=== PATIENT | male | born 1990 | race Caucasian/White ===

== ENCOUNTER 2022-02-12 13:53 | Emergency (ER) | payer OTHER, SELFPAY ==
--- NOTE | ~2022-02-12 | CT_ITS ---
EXAMINATION: CT abdomen pelvis w con DATE: 02/12/2022 16:02 INDICATION: 3 days of epigastric pain, nausea and vomiting TECHNIQUE: Computed tomography (CT) of the abdomen and pelvis was performed with 100 mL Omnipaque-350 intravenous contrast. Automated exposure control and iterative reconstruction technique were employe d. The dose-length product was 408.49 mGy-cm. COMPARISON: None FINDINGS: Lung bases are clear. Heart size is normal. No pericardial or pleural effusion. Liver, gallbladder, s pleen, pancreas, left adrenal gland and bilateral kidneys are normal. 1.9 cm right adrenal nodule wit h relatively low-attenuation accounting for postcontrast imaging suggestive but not diagnostic of sridhar noma. Moderate to large amount of stool scattered throughout the colon. No abnormal bowel wall thicke prudencio or obstruction. Normal appendix. Bladder is normal. No free intraperitoneal gas or fluid. No pat hologically enlarged abdominal or pelvic lymphadenopathy. Bones are unremarkable. IMPRESSION: 1. No acute intra-abdominal/pelvic process. 2. 1.9 cm right adrenal nodule with appearance suggestive but not diagnostic of adenoma. Consider 12 month follow-up adrenal protocol MRI or CT Reviewed, dictated and finalized at location B.
[2022-02-12 14:02] VITALS: BP 149/95; PULSE 61; RESP 14; TEMP 36.4; O2SAT 99
[2022-02-12 14:17] LABS: Basophils Percent Auto 0.9 % (0.2-1.2); Eosinophils Absolute Auto 0.1 K/mm3 (0-0.3); Eosinophils Percent Auto 1.7 % (0-4.4); Hematocrit 47.7 % (42.0-52.0); Hemoglobin 15.8 g/dL (14.0-18.0); Immature Granulocyte Absolute 0.01 K/mm3 (0.00-0.031); Immature Granulocyte Percent A 0.2 % (0-0.5); Lymphocytes Percent Auto 36.5 % (18.3-44.2); Mean Corpuscular HGB Conc 33.1 g/dl (32-36); Mean Corpuscular Hemoglobin 29.6 pg (26-34); Mean Corpuscular Volume 89.3 fl (80-100); Mean Platelet Volume 9.8 fl (7.4-10.4); Monocytes Absolute Auto 0.4 K/mm3 (0.1-0.6); Monocytes Percent Auto 8.6 % (2.6-8.5); Neutrophils Absolute Auto 2.4 K/mm3 (1.3-6.7); Neutrophils Percent Auto 52.1 % (45.5-73.1); Platelet Count Result 196 k/mm3 (150-375); Red Blood Count 5.34 M/mm3 (4.6-6.20); Red Cell Distribution Width 12.1 % (11.5-14.5); White Blood Count 4.7 K/mm3 (4.5-10.0)
[2022-02-12 14:28] LABS: Add Urine Microscopic? YES; Amorphous Sediment Urine Few; Appearance Urine Cloudy (Clear); Bilirubin Urine Negative (Negative); Blood Urine Negative (Negative); Color Urine Yellow (Yellow); Glucose Urine UA Negative (Negative); Ketones Urine Negative (Negative); Leukocyte Esterase Ur Negative LEU/UL (Negative); Mucus Urine Rare /lpf; Nitrate Urine Negative (Negative); Protein Urine Negative (Negative); Specific Grav Ur 1.021 (1.001-1.035); Urobilinogen Urine Negative mg/dL (<2.0)
[2022-02-12 14:31] LABS: Alanine Aminotransferase 22 U/L (6-50); Albumin Level 4.7 g/dL (3.5-5.1); Alkaline Phosphatase 66 U/L (38-126); Anion Gap 8 mmol/L (8-16); Aspartate Amino Transferase 28 U/L (17-59); Blood Urea Nitrogen 20 mg/dL (9-20); Calcium 9.4 mg/dL (8.4-10.2); Carbon Dioxide 29 mmol/L (22-30); Chloride 101 mmol/L (98-107); Estimated CRCL calculation 91 ml/min; Estimated Glomerular Filt Rate > 60; Glucose 103 mg/dL (65-110); Lipase 53 U/L (23-300); Potassium 4.1 mmol/L (3.4-5.0); Sodium 138 mmol/L (137-145)
--- NOTE | 2022-02-12 15:29 | ED.ABDPAIN ---
HPI - Abdominal Pain General Chief Complaint: Abdominal Pain <BASSEM Fairchild Last Filed: 02/12/22 17:15> Stated Complaint: abdominal pain <BASSEM Fairchild Last Filed: 02/12/22 17:15> Time Seen by Provider: 02/12/22 14:19 <BASSEM Fairchild Last Filed: 02/12/22 17:15> Source: patient <BASSEM Fairchild Last Filed: 02/12/22 17:15> Mode of arrival: ambulatory <BASSEM Fairchild Last Filed: 02/12/22 17:15> Limitations: no limitations <BASSEM Fairchild Last Filed: 02/12/22 17:15> History of Present Illness HPI narrative: Patient is a 32-year-old male who presents the ED with report of epigastric abdominal pain. Patient reports having pain in his epigastric region for the last several days. He describes the pain as stabbing, burning, twisting. He has a long history of GERD, but states this feels different. He has not tried anything else for the pain. He did report a few episodes of nausea and vomiting, but denies diarrhea, constipation, rectal bleeding, melena. Denies fever, dysuria, hematuria. Denies chest pain, difficulty breathing. <BASSEM Fairchild Last Filed: 02/12/22 17:15> Related Data Allergies/Adverse Reactions: Allergies Allergy/AdvReac Type Severity Reaction Status Date / Time NKDA, NO LATEX Allergy Mild Unknown Uncoded 02/12/22 14:18 <BASSEM Fairchild Last Filed: 02/12/22 17:15> Review of Systems Review of Systems: CONSTITUTIONAL: Denies fever, chills, or sweats. CARDIOVASCULAR: Denies chest pain. RESPIRATORY: Denies dyspnea. GASTROINTESTINAL: Reports epigastric abdominal pain, nausea, vomiting. Denies constipation, rectal bleeding, melena, diarrhea. GENITOURINARY: Denies dysuria or hematuria. <BASSEM Fairchild Last Filed: 02/12/22 17:15> All systems reviewed & are unremarkable except as noted in HPI and below <Kaela Angulo PA-C - Last Filed: 02/12/22 17:15> PMFSH Past Medical History Medical History: Medical History (Updated 02/12/22 @ 17:15 by Kaela Angulo PA-C) GERD (gastroesophageal reflux disease) <Kaela Angulo PA-C - Last Filed: 02/12/22 17:15> Surgical History Surgical History: Surgical History (Updated 02/12/22 @ 15:44 by Kaela Angulo PA-C) No pertinent past surgical history <Kaela Angulo PA-C - Last Filed: 02/12/22 17:15> Social History Social History: Social History (Updated 02/12/22 @ 15:44 by Kaela Angulo PA-C) Smoking status: Never smoker <Kaela Angulo PA-C - Last Filed: 02/12/22 17:15> Exam Narrative: GENERAL: Well appearing, well-nourished, non-toxic, in no acute distress. HEAD: Normocephalic, atraumatic. NECK: Supple. No adenopathy, no masses. RESPIRATORY: Airway patent, respirations nonlabored. Clear to auscultation bilaterally, no rales, rhonchi, wheezing. CARDIOVASCULAR: Regular rate and rhythm without murmurs, rubs, or gallops. Peripheral pulses 2+ and equal bilaterally. ABDOMINAL: Soft, tenderness to palpation in epigastric region, right upper quadrant, nondistended, no hepatosplenomegaly. Normoactive BS. MUSCULOSKELETAL: Moves all extremities. Strength/ROM intact without gross deformities. SKIN: Warm, dry, normal color. No rashes. NEURO: A&O X3. Speech clear. Cranial nerves II-XII grossly intact. Steady gait. No ataxic movements. PSYCHIATRIC: Appropriate mood and affect. Normal interaction. <Kaela Angulo PA-C - Last Filed: 02/12/22 17:15> Course MONITORING MANAGER/PA Physician Supervision For this patient encounter, I reviewed the MONITORING MANAGER or PA documentation, treatment plan, and medical decision making <Priyank Perkins MD - Last Filed: 02/12/22 18:37> Vital Signs Vital signs: Vital Signs Temperature 97.6 F 02/12/22 14:02 Pulse Rate 61 02/12/22 14:02 Respiratory Rate 14 02/12/22 14:02 Blood Pressure 149/95 H 02/12/22 14:
[2022-02-12] MEDS: BELLADONNA ALK/PHENOB ELIX 10 ML, MAG HYDROX/ALUMINUM HYD/SIMETH 30 ML, LIDOCAINE HCL 2... PO (15:34)
[2022-02-12] MEDS: PANTOPRAZOLE SODIUM IV 40 MG VIAL IV PUSH (17:10)
== END 2022-02-12 17:18 | disposition home or self-care (01) ==
PROVIDERS: Emergency Provider Emergency Medicine; PCP Family Medicine
DX: R10.13 Epigastric pain (principal); E27.9 Disorder of adrenal gland, unspecified; K21.9 Gastro-esophageal reflux disease without esophagitis
CPT/HCPCS: 36415; 74177; 80053; 81001; 83690; 85025; 96365; 96375; 99284; A9270; C9113; J0131; Q9967

== ENCOUNTER 2022-07-28 20:47 | Emergency (ER) | payer OTHER, SELFPAY ==
--- NOTE | ~2022-07-28 | XR_ITS ---
EXAMINATION: XR knee LT 3V DATE: 07/28/2022 21:13 INDICATION: Left knee pain TECHNIQUE: Four views of the left knee were obtained. COMPARISON: None. FINDINGS: Alignment is normal. No fracture or osteochondral lesion. There is mild tricompartmental os teoarthritis characterized by tiny marginal osteophytes. No joint effusion/synovitis. Soft tissues a re unremarkable. IMPRESSION: 1. No acute osseous abnormality. Reviewed, dictated and finalized at location F.
[2022-07-28 20:56] VITALS: BP 162/91; PULSE 92; RESP 14; TEMP 36.6; O2SAT 98
[2022-07-28] MEDS: HYDROcodone/acetaminophen (*CRX) 5-325 MG TABLET 1 TAB PO (22:35)
--- NOTE | 2022-07-28 22:38 | ED.LOWEXIN ---
HPI - Extremity Injury (Lower) General Chief Complaint: Extremity Injury, Lower Stated Complaint: left knee pain Time Seen by Provider: 07/28/22 22:25 History of Present Illness HPI Narrative: Patient is a 32-year-old male here for evaluation of left knee pain over the past 3 hours. Patient states that he was doing jujitsu when he had a twisting injury to his knee and he felt a pop in his left knee. He denies any other injury in the accident. Has not attempted any pain medicine yet. No numbness or tingling in the leg. Related Data Allergies Allergy/AdvReac Type Severity Reaction Status Date / Time No Known Allergies Allergy Verified 07/28/22 21:54 Review of Systems Review of Systems: Gen.: Denies fevers or chills Eyes: Denies eye pain or visual change ENT: Denies congestion Respiratory: Denies shortness of breath or cough CV: Denies chest pain or palpitations GI: Denies abdominal pain nausea, emesis or diarrhea denies burning, urgency, frequency or hematuria Musculoskeletal: Reports left knee pain Neuro: Denies numbness, tingling, weakness or focal weakness Skin: Denies rash Except as documented, all other systems reviewed and negative PMFSH Past Medical History Medical History GERD (gastroesophageal reflux disease) Surgical History Surgical History No pertinent past surgical history Social History Social History (Updated 02/12/22 @ 15:44 by Kaela Angulo PA-C) Smoking status: Never smoker Exam Narrative: APPEARANCE: Well appearing, no pain in distress, well-nourished. Head: Normocephalic and atraumatic. EYES: PERRLA/EOMI, conjunctivae clear NOSE: No nasal drainage EARS: External ear normal in appearance THROAT: Oropharynx is clear. Mucous membranes are moist. NECK: Supple. No adenopathy, no masses. RESPIRATORY: Airway patent, respirations nonlabored. Clear to auscultation bilaterally, no rales, rhonchi, wheezing. CARDIOVASCULAR: Regular rate and rhythm without murmurs, rubs, or gallops. ABDOMINAL: Normoactive bowel sounds. Soft, nontender, nondistended. No rebound tenderness or guarding. MUSCULOSKELETAL: Positive posterior drawer test. No bony tenderness to palpation to the patella. Extremities are warm and well-perfused. Moves all extremities well. No edema. NEURO: Normal speech. No focal neurologic deficits. SKIN: Skin is warm and dry. No rashes. PSYCHIATRIC: Normal affect/mood. Course Vital Signs Vital signs: Vital Signs Temperature 97.9 F 07/28/22 20:56 Pulse Rate 92 07/28/22 20:56 Respiratory Rate 14 07/28/22 20:56 Blood Pressure 162/91 H 07/28/22 20:56 Pulse Oximetry 98 07/28/22 20:56 Oxygen Delivery Room Air 07/28/22 20:56 Temperature 97.9 F 07/28/22 20:56 Pulse Rate 92 07/28/22 20:56 Respiratory Rate 14 07/28/22 20:56 Blood Pressure 162/91 H 07/28/22 20:56 Pulse Oximetry 98 07/28/22 20:56 Oxygen Delivery Room Air 07/28/22 20:56 MDM - Extremity Injury (Lower) MDM Narrative Medical decision making narrative: 32-year-old male here for evaluation of knee pain after a twisting injury during , felt a pop in his knee. Plain films are negative for acute fractures but he does have a positive posterior drawer test. Mechanism and exam suspicious for ligament tear. He is NVID. He was placed in a knee immobilizer and provided with orthopedic follow-up. Return precautions were discussed and he voiced understanding Discharge Plan Discharge Clinical Impression: Sprain of left knee Patient Disposition: Home, Self-Care Condition: Stable Instructions: Antibiotic Form, Knee Sprain (ED), Knee Immobilizer (ED) Additional Instructions: The mechanism of your injury is suspicious for ligament sprain such as your ACL or meniscus. You are placed in a knee immobilizer today, please use the crutches and follow-u
== END 2022-07-28 23:30 | disposition home or self-care (01) ==
LOC: ANHED 22:39
PROVIDERS: Emergency Provider Physician Assistant; PCP Family Medicine
DX: S83.92XA Sprain of unspecified site of left knee, initial encounter (principal); K21.9 Gastro-esophageal reflux disease without esophagitis; X50.9XXA Other and unspecified overexertion or strenuous movements or postures, initial encounter; Y93.75 Activity, martial arts
CPT/HCPCS: 73562; 99283; A9270

== ENCOUNTER 2022-08-05 06:52 | Outpatient (CLI) | payer OTHER, SELFPAY ==
--- NOTE | 2022-08-05 | ECG_ITS ---
Measurements Intervals [place] Rate: 50 P: 52 RI: 178 QRS: 43 QRSD: 103 T: 14 QT: 439 QTc: 403 Interpretive Statements SINUS BRADYCARDIA OTHERWISE NORMAL ECG NO PREVIOUS ECG AVAILABLE FOR COMPARISON Electronically Signed On 08-05-2022 13:48:38 CDT by Dann Obando M.D.
[2022-08-05 07:50] LABS: Basophils Percent Auto 0.5 % (0.2-1.2); Eosinophils Absolute Auto 0.1 K/mm3 (0-0.3); Eosinophils Percent Auto 1.7 % (0-4.4); Hematocrit 47.9 % (42.0-52.0); Hemoglobin 15.8 g/dL (14.0-18.0); Immature Granulocyte Absolute 0.02 K/mm3 (0.00-0.031); Immature Granulocyte Percent A 0.2 % (0-0.5); Lymphocytes Absolute Auto 3.11 K/mm3 (0.9-3.2); Lymphocytes Percent Auto 36.9 % (18.3-44.2); Mean Corpuscular Hemoglobin 29.6 pg (26-34); Mean Corpuscular Volume 89.7 fl (80-100); Mean Platelet Volume 10.3 fl (7.4-10.4); Monocytes Absolute Auto 0.7 K/mm3 (0.1-0.6); Monocytes Percent Auto 8.8 % (2.6-8.5); Neutrophils Absolute Auto 4.4 K/mm3 (1.3-6.7); Neutrophils Percent Auto 51.9 % (45.5-73.1); Platelet Count Result 216 k/mm3 (150-375); Red Blood Count 5.34 M/mm3 (4.6-6.20); Red Cell Distribution Width 12.4 % (11.5-14.5); White Blood Count 8.4 K/mm3 (4.5-10.0)
[2022-08-05 08:00] LABS: Appearance Urine Clear (Clear); Bilirubin Urine Negative (Negative); Blood Urine Negative (Negative); Color Urine Yellow (Yellow); Glucose Urine UA Negative (Negative); Ketones Urine Negative (Negative); Leukocyte Esterase Ur Negative LEU/UL (Negative); Nitrate Urine Negative (Negative); Protein Urine Negative (Negative); Specific Grav Ur 1.027 (1.001-1.035); pH Urine 5.5 (5.0-9.0)
[2022-08-05 08:25] LABS: Alanine Aminotransferase 21 U/L (6-50); Albumin Level 4.5 g/dL (3.5-5.1); Alkaline Phosphatase 64 U/L (38-126); Anion Gap 7 mmol/L (8-16); Aspartate Amino Transferase 29 U/L (17-59); Bilirubin,Total 0.9 mg/dL (0.2-1.3); Blood Urea Nitrogen 22 mg/dL (9-20); Calcium 9.2 mg/dL (8.4-10.2); Carbon Dioxide 29 mmol/L (22-30); Chloride 103 mmol/L (98-107); Cholesterol 151 mg/dL (0-200); Estimated Glomerular Filt Rate > 60; Glucose 103 mg/dL (65-110); HDL Direct 48 mg/dL; Potassium 3.8 mmol/L (3.4-5.0); Sodium 139 mmol/L (137-145); Triglycerides 94 mg/dL (<150)
[2022-08-05 08:31] LABS: LDL Cholesterol Direct 89 mg/dL
[2022-08-05 08:33] LABS: Free T4 Free Thyroxine 1.56 ng/mL (0.78-2.19)
[2022-08-05 09:28] LABS: Folic Acid 5.8 ng/mL (2.76->20)
[2022-08-05 09:28] LABS: Add Urine Microscopic? NO
== END 2022-08-05 06:53 | disposition home or self-care (01) ==
LOC: ANHLAB 06:54
PROVIDERS: PCP Family Medicine Sports Medicine; Visit Provider Family Medicine Sports Medicine
DX: K52.9 Noninfective gastroenteritis and colitis, unspecified (principal); K21.9 Gastro-esophageal reflux disease without esophagitis; I10 Essential (primary) hypertension; Z82.49 Family history of ischemic heart disease and other diseases of the circulatory system
CPT/HCPCS: 36415; 80053; 80061; 81003; 82607; 82746; 84439; 84443; 85025; 93005

== ENCOUNTER 2024-03-28 04:10 | Emergency (ER) | payer OTHER, SELFPAY ==
[2024-03-28] VITALS (17 sets, daily range): BP systolic 128–157; BP diastolic 78–107; PULSE 79–106; RESP 10–21; TEMP 36.5; O2SAT 97–100
--- NOTE | 2024-03-28 04:19 | ECG_ITS ---
Test Date: 2024-03-28 04:40:31 Measurements Intervals [place] Rate: 77 P: 51 MS: 165 QRS: 57 QRSD: 101 T: 50 QT: 377 QTc: 427 Interpretive Statements SINUS RHYTHM WITH SINUS ARRHYTHMIA MINIMAL Q WAVES- INFERIOR LEADS NONSPECIFIC T-WAVE ABNORMALITY- ANTERIOR LEADS BASELINE ARTIFACT- I, II, III, AVR, AVL, V1 BORDERLINE ECG No previous ECG available for comparison Electronically Signed On 03-28-2024 06:14:24 [employer] PREPAR[employer] SUPERVISOR by Kulwant Mclain D.O.
[2024-03-28 04:55] LABS: Basophils Absolute Auto 0.1 K/mm3 (0.0-0.1); Basophils Percent Auto 0.8 % (0.2-1.2); Eosinophils Absolute Auto 0.2 K/mm3 (0-0.3); Eosinophils Percent Auto 2.1 % (0-4.4); Hematocrit 46.3 % (42.0-52.0); Hemoglobin 15.6 g/dL (14.0-18.0); Immature Granulocyte Absolute 0.03 K/mm3 (0.00-0.031); Immature Granulocyte Percent A 0.3 % (0-0.5); Lymphocytes Absolute Auto 3.94 K/mm3 (0.9-3.2); Lymphocytes Percent Auto 43.2 % (18.3-44.2); Mean Corpuscular HGB Conc 33.7 g/dl (32-36); Mean Corpuscular Volume 86.1 fl (80-100); Mean Platelet Volume 10.3 fl (7.4-10.4); Monocytes Absolute Auto 0.8 K/mm3 (0.1-0.6); Monocytes Percent Auto 8.9 % (2.6-8.5); Neutrophils Absolute Auto 4.1 K/mm3 (1.3-6.7); Neutrophils Percent Auto 44.7 % (45.5-73.1); Platelet Count Result 242 k/mm3 (150-375); Red Blood Count 5.38 M/mm3 (4.6-6.20); Red Cell Distribution Width 12.3 % (11.5-14.5); White Blood Count 9.1 K/mm3 (4.5-10.0)
[2024-03-28 05:13] LABS: Alanine Aminotransferase 28 U/L (6-50); Albumin Level 4.4 g/dL (3.5-5.1); Alkaline Phosphatase 74 U/L (38-126); Anion Gap 10 mmol/L (4-12); Aspartate Amino Transferase 31 U/L (17-59); Bilirubin,Total 0.6 mg/dL (0.2-1.3); Blood Urea Nitrogen 23 mg/dL (9-20); Calcium 8.9 mg/dL (8.4-10.2); Carbon Dioxide 26 mmol/L (22-30); Chloride 102 mmol/L (98-107); Estimated CRCL calculation 90 ml/min; Estimated Glomerular Filt Rate > 60; Glucose 168 mg/dL (65-110); Potassium 3.3 mmol/L (3.4-5.0); Sodium 138 mmol/L (137-145)
--- NOTE | 2024-03-28 05:25 | ED_ITS ---
HPI - General Adult General Chief complaint: Recheck/Abnormal Lab/Rx Stated complaint: high blood pressure Time Seen by Provider: 03/28/24 04:17 History of Present Illness HPI narrative: Patient is a 34-year-old male who presents to the emergency department this evening due to concern for lightheadedness and elevated blood pressure. Patient also states that he does have intermittent episodes where he would feel his heart recent and could feel palpitations. Patient states that he has been having these symptoms on and off for a while now which prompted him to get fitted for a Holter monitor. Patient states that he has been wearing this Holter monitor for 2-3 days. Currently denying any chest pain or shortness of breath. Patient admits that he does have history of anxiety which could be contributing to his symptoms. Patient was also concerned that his blood pressure has been elevated. Patient states that when he felt lightheaded and dizzy earlier today he had someone check his blood pressure and he noted that his systolic blood pressure was 200 which is what prompted him to come to the emergency department for further evaluation. Patient admits that he does take blood pressure medication and recently had his dose increased approximately 2 months ago. Patient denies any additional symptoms or concerns at this time. Related Data Allergies Allergy/AdvReac Type Severity Reaction Status Date / Time No Known Allergies Allergy Verified 03/28/24 04:34 Review of Systems Review of Systems: All systems are reviewed and are negative unless stated otherwise in the HPI. [facility] Past Medical History Medical History GERD (gastroesophageal reflux disease) Surgical History Surgical History No pertinent past surgical history Social History Social History Smoking status: Never smoker Exam Narrative: General: Alert, awake, afebrile, in no acute distress. HEENT: PERRL, no rhinorrhea, no post nasal drip, oropharynx clear. Neck: Trachea midline, no JVD, no lymphadenopathy. Cardiovascular: Regular rate and rhythm, no murmurs, rubs or gallops, no peripheral edema. Respiratory: Clear to auscultation bilaterally, no tachypnea, no wheezing, no rhonchi, no rubs, no respiratory distress. Abdomen: Soft, nontender, nondistended, no rebound, no guarding, no peritoneal signs. Musculoskeletal: No joint swelling or deformity, normal muscle tone. Skin: No rashes or petechia, no signs of infection. Psychiatric: Alert and oriented, normal behavior and judgment for situation. Neurological: Alert and oriented to person, place, and time. Follows all commands. No focal deficits, speech is clear and fluent. Course Vital Signs Vital signs: Vital Signs Temperature 97.7 F 03/28/24 03:44 Pulse Rate 106 H 03/28/24 03:44 Respiratory Rate 14 03/28/24 03:44 Blood Pressure 157/107 H 03/28/24 03:44 Pulse Oximetry 100 03/28/24 03:44 Oxygen Delivery Room Air 03/28/24 03:44 Temperature 97.7 F 03/28/24 03:44 Pulse Rate 98 03/28/24 05:47 Respiratory Rate 15 03/28/24 05:47 Blood Pressure 138/92 H 03/28/24 05:47 Pulse Oximetry 100 03/28/24 05:47 Oxygen Delivery Room Air 03/28/24 03:44 Medical Decision Making MDM Narrative Medical decision making narrative: The patient was evaluated by myself in the emergency department. History is obtained from patient who is an independent historian and physical exam was performed. External medical records were reviewed at this time. IV was established and pertinent tests were ordered. EKG was obtained which revealed sinus rhythm rate of 77 beats per minute. No ST changes, T wave inversions or evidence of acute ischemia. EKG was independently interpreted by me and is currently pending official cardiology read. Laboratory results obtained revealing mild hypokalemia with a potassium of 3.3 otherwise unremarkable. Patient was administered 40 mEq of oral potassium at this time. Magnesium noted to be normal. Differential diagnosis considerations include electrolyte derangements, acute viral syndrome, dehydration, arrhythmia, anxiety. Comorbidities impacting this visit include history of hypertension and anxiety. I have evaluated and discussed social determinants of health with the patient that could potentially impact subsequent diagnosis and treatment plans. On repeat assessment of the patient, reevaluation revealed that the patient is doing well and is in no acute distress. Patient symptoms have improved since he arrived to our emergency department. Repeat vital signs were all reviewed and noted to be stable. Patient's blood pressure has been stable in the emergency department current blood pressure 132/91 mmHg. Differential diagnosis and treatment plan were discussed with the patient at bedside. Patient agrees with discussion and after shared medical decision making agrees with discharge. All questions were answered to the patient's satisfaction. Patient will follow up with his PCP in 3-5 days. Patient was provided with strict return precautions and instructed to return to the emergency department if any new or worsening symptoms develop. The patient was discharged in stable condition. Vital Signs Vital Signs: Vital Signs Temperature 97.7 F 03/28/24 03:44 Pulse Rate 106 H 03/28/24 03:44 Respiratory Rate 14 03/28/24 03:44 Blood Pressure 157/107 H 03/28/24 03:44 Pulse Oximetry 100 03/28/24 03:44 Oxygen Delivery Room Air 03/28/24 03:44 Temperature 97.7 F 03/28/24 03:44 Pulse Rate 98 03/28/24 05:47 Respiratory Rate 15 03/28/24 05:47 Blood Pressure 138/92 H 03/28/24 05:47 Pulse Oximetry 100 03/28/24 05:47 Oxygen Delivery Room Air 03/28/24 03:44 Lab Data 03/28/24 04:42 03/28/24 04:42 Labs: Lab Results 03/28/24 Range/Units 04:42 WBC 9.1 (4.5-10.0) K/mm3 RBC 5.38 (4.6-6.20) M/mm3 Hgb 15.6 (14.0-18.0) g/dL Hct 46.3 (42.0-52.0) % MCV 86.1 (80-100) fl MCH 29.0 (26-34) pg MCHC 33.7 (32-36) g/dl RDW 12.3 (11.5-14.5) % Plt Count 242 (150-375) k/mm3 MPV 10.3 (7.4-10.4) fl Immature Gran % (Auto) 0.3 (0-0.5) % Neut % (Auto) 44.7 L (45.5-73.1) % Lymph % (Auto) 43.2 (18.3-44.2) % [place] % (Auto) 8.9 H (2.6-8.5) % Eos % (Auto) 2.1 (0-4.4) % Baso % (Auto) 0.8 (0.2-1.2) % Lymph # (Auto) 3.94 H (0.9-3.2) K/mm3 [place] # (Auto) 0.8 H (0.1-0.6) K/mm3 Eos # (Auto) 0.2 (0-0.3) K/mm3 Baso # (Auto) 0.1 (0.0-0.1) K/mm3 Abs Immat Gran (auto) 0.03 (0.00-0.031) K/mm3 Absolute Neuts (auto) 4.1 (1.3-6.7) K/mm3 Absolute Nucleated RBC 0.000 (0.0-0.012) K/mm3 Nucleated RBC % 0.0 (0.0-0.2) % Sodium 138 (137-145) mmol/L Potassium 3.3 L (3.4-5.0) mmol/L Chloride 102 (98-107) mmol/L Carbon Dioxide 26 (22-30) mmol/L Anion Gap 10 (4-12) mmol/L BUN 23 H (9-20) mg/dL Creatinine 1.10 (0.7-1.3) mg/dL Estim Creat Clear Calc 90 ml/min Estimated GFR > 60 (59 - ) Glucose 168 H (65-110) mg/dL Calcium 8.9 (8.4-10.2) mg/dL Magnesium 2.0 (1.6-2.3) mg/dL Total Bilirubin 0.6 (0.2-1.3) mg/dL AST 31 (17-59) U/L ALT 28 (6-50) U/L Alkaline Phosphatase 74 (38-126) U/L Total Protein 7.0 (6.3-8.2) g/dL Albumin 4.4 (3.5-5.1) g/dL Discharge Plan Discharge Clinical Impression: Palpitations, Hypokalemia Patient Disposition: Home, Self-Care Condition: Improved Instructions: Antibiotic Form, Hypokalemia (ED) Additional Instructions: Please follow-up with your primary care physician within the next 3-5 days. Return to the emergency department if any new or worsening symptoms develop. Prescriptions: No Action omeprazole 20 mg capsule,delayed release(DR/EC) 20 mg PO DAILY Qty: 30 0RF Follow-up/Referrals: Sean,Alverto Jain MD [Primary Care Provider] - 3 Days Time of Disposition: 05:26
[2024-03-28] MEDS: POTASSIUM CHLORIDE 20 MEQ ER TABLET 40 MEQ PO (05:28)
== END 2024-03-28 05:50 | disposition home or self-care (01) ==
PROVIDERS: Emergency Provider Emergency Medicine; PCP Family Medicine Sports Medicine
DX: R00.2 Palpitations (principal); E87.6 Hypokalemia; K21.9 Gastro-esophageal reflux disease without esophagitis; R94.31 Abnormal electrocardiogram [ECG] [EKG]
CPT/HCPCS: 36415; 80053; 83735; 85025; 93005; 99283; A9270

== ENCOUNTER 2024-06-06 13:39 | Outpatient (CLI) | payer OTHER, SELFPAY ==
--- NOTE | ~2024-06-06 | US_ITS ---
Limited Abdominal Sonogram: Real-time sonographic imaging of the right upper quadrant was performed. Clinical History: Abdominal pain Findings: The liver appears normal with no evidence of mass lesion or bile duct dilatation. Main por [place] vein demonstrates normal direction of flow. The gallbladder is well distended, and appears normal with no evidence of gallstone or wall thickening. The common bile duct measures 4 mm. The visualize d pancreas, aorta, and IVC are unremarkable. Impression: No significant abnormality seen. Reviewed, dictated and finalized at location . HOLDER Impression: No significant abnormality seen.
== END 2024-06-06 13:40 | disposition home or self-care (01) ==
LOC: GOSHIMG 13:39
PROVIDERS: PCP Nurse Practitioner; Visit Provider Nurse Practitioner
DX: R10.11 Right upper quadrant pain (principal)
CPT/HCPCS: 76705

== ENCOUNTER 2024-08-29 12:59 | Emergency (ER) | payer OTHER, SELFPAY ==
--- NOTE | ~2024-08-29 | CT_ITS ---
CT brain wo con Ordering provider: Linnette Cornelius History: 34 years Male with . hypertension, headache . Comparison: None. Technique: CT of the head without contrast. Radiation reduction technique utilized.The dose-length pr oduct was 605.33 mGy-cm. FINDINGS: BRAIN PARENCHYMA AND CSF SPACES: No midline shift, mass effect or hemorrhage. The brain parenchyma a nd CSF spaces are otherwise normal. VISUALIZED PARANASAL SINUSES: Well aerated. MASTOIDS: Well aerated. BONES: The bones appear intact. SOFT TISSUES: Visualized nasopharynx is normal. Superficial soft tissues are normal. IMPRESSION: No acute intracranial findings. Reviewed, dictated and finalized at location A.
[2024-08-29 13:41] VITALS: BP 144/100; PULSE 68; RESP 24; TEMP 36.3; O2SAT 100
--- NOTE | 2024-08-29 13:53 | ECG_ITS ---
Test Date: 2024-08-29 14:25:53 Measurements Intervals [place] Rate: 60 P: 42 [place]: 187 QRS: 42 QRSD: 97 T: 42 QT: 414 QTc: 417 Interpretive Statements SINUS RHYTHM NORMAL ECG Compared to ECG 03/28/2024 04:40:31 NO SIGNIFICANT CHANGE Electronically Signed On 08-29-2024 14:38:32 CDT by Kulwant Mclain D.O.
--- NOTE | 2024-08-29 13:54 | ED_ITS ---
HPI - General Adult General Chief complaint: Arrhythmia/Palpitations <Linnette Cornelius PA-C - Last Filed: 08/29/24 19:16> Stated complaint: Feels like BP too high <Linnette Cornelius PA-C - Last Filed: 08/29/24 19:16> Time Seen by Provider: 08/29/24 13:54 <Linnette Cornelius PA-C - Last Filed: 08/29/24 19:16> Focused HPI: This is a 34 year old male that presents to the ER for elevated blood pressure. Reports his blood pressure was in the 170s systolic the other day. Reports associated headache, feelings of his heart racing. He has been taking his blood pressure medication as prescribed. GENERAL: Anxious, in no acute distress. HEAD: Normocephalic, atraumatic. CHEST: Clear to auscultation. ?No respiratory distress. HEART: Regular rate and rhythm.? NEURO: ?Alert and oriented x3. Patient screened in triage and initial orders placed.? ?Additional care and disposition to be based upon?diagnostic testing and treatment. <Linnette Cornelius PA-C - Last Filed: 08/29/24 19:16> History of Present Illness HPI narrative: Agree with HPI. Patient has lot of anxiety about health due to family history of early cardiac . He did take his home meds 30 minutes after symptom onset today and then began to feel better. He reports that in his mind he tells himself that he knows he is okay but cannot stop thinking about it. He is not getting treatment for generalized anxiety disorder. No stimulant use. No chest pain feels well at this time. <Darwin Bazan MD - Last Filed: 08/29/24 16:41> Related Data Home medications: Home Medications ?Medication ?Instructions ?Recorded ?Confirmed ?Last Taken ?Type losartan 50 mg tablet 50 mg PO DAILY 08/29/24 08/29/24 08/29/24 History nadolol 20 mg tablet 20 mg PO DAILY 08/29/24 08/29/24 08/29/24 History <Linnette Cornelius PA-C - Last Filed: 08/29/24 19:16> Allergies/adverse reactions: Allergies Allergy/AdvReac Type Severity Reaction Status Date / Time No Known Allergies Allergy Verified 08/29/24 13:00 <Linnette Cornelius PA-C - Last Filed: 08/29/24 19:16> Review of Systems 2 Review of Systems: All systems reviewed & are unremarkable except as noted in HPI and below <Darwin Bazan MD - Last Filed: 08/29/24 16:41> Constitutional: Constitutional: Reports no additional constitutional complaints <Darwin Bazan MD - Last Filed: 08/29/24 16:41> ENT: Reports system reviewed and no additional complaints, except as documented <Darwin Bazan MD - Last Filed: 08/29/24 16:41> Cardiovascular: Cardiovascular: Reports no additional cardiovascular complaints <Darwin Bazan MD - Last Filed: 08/29/24 16:41> Respiratory: Respiratory: Reports no additional respiratory complaints < Darwin Bazan MD - Last Filed: 08/29/24 16:41> PMFSH Past Medical History Medical History: Medical History GERD (gastroesophageal reflux disease) <Linnette Cornelius PA-C - Last Filed: 08/29/24 19:16> Surgical History Surgical History: Surgical History No pertinent past surgical history <Linnette Cornelius PA-C - Last Filed: 08/29/24 19:16> Social History Social History: Social History Smoking status: Never smoker <Linnette Cornelius PA-C - Last Filed: 08/29/24 19:16> Exam 2 Narrative: GENERAL: Well-appearing, well-nourished, and in no acute distress. HEAD: Normocephalic, atraumatic. ENT: Mucous membranes moist. CHEST: Clear to auscultation. No respiratory distress. HEART: Regular rate and rhythm. Normal peripheral pulses. ABDOMEN: Soft, nontender, nondistended. EXTREMITIES: Normal range of motion. No edema. SKIN: Warm, dry, no rash. NEURO: Alert and oriented x3. PSYCH: Normal mood and affect. <Darwin Bazan MD - Last Filed: 08/29/24 16:41> Course Course Emergency Course: Patient resting comfortably. Vital signs within acceptable range. Recommend follow-up with PCP. Suspect he has untreated anxiety that needs additional treatment and we discussed this. <Darwin Bazan MD - Last Filed: 08/29/24 16:41> Vital Signs Vital signs: Vital Signs Temperature 97.4 F L 08/29/24 13:41 Pulse Rate 68 08/29/24 13:41 Respiratory Rate 24 H 08/29/24 13:41 Blood Pressure 144/100 H 08/29/24 13:41 Pulse Oximetry 100 08/29/24 13:41 Oxygen Delivery Room Air 08/29/24 13:41 Temperature 97.7 F 08/29/24 16:52 Pulse Rate 59 L 08/29/24 16:52 Respiratory Rate 12 08/29/24 16:52 Blood Pressure 120/86 08/29/24 16:52 Pulse Oximetry 98 08/29/24 16:52 Oxygen Delivery Room Air 08/29/24 13:41 <Linnette Cornelius PA-C - Last Filed: 08/29/24 19:16> Vital Signs Temperature 97.4 F L 08/29/24 13:41 Pulse Rate 68 08/29/24 13:41 Respiratory Rate 24 H 08/29/24 13:41 Blood Pressure 144/100 H 08/29/24 13:41 Pulse Oximetry 100 08/29/24 13:41 Oxygen Delivery Room Air 08/29/24 13:41 Temperature 97.7 F 08/29/24 16:52 Pulse Rate 59 L 08/29/24 16:52 Respiratory Rate 12 08/29/24 16:52 Blood Pressure 120/86 08/29/24 16:52 Pulse Oximetry 98 08/29/24 16:52 Oxygen Delivery Room Air 08/29/24 13:41 <Darwin Bazan MD - Last Filed: 08/29/24 16:41> Medical Decision Making Vital Signs Vital Signs: Vital Signs Temperature 97.4 F L 08/29/24 13:41 Pulse Rate 68 08/29/24 13:41 Respiratory Rate 24 H 08/29/24 13:41 Blood Pressure 144/100 H 08/29/24 13:41 Pulse Oximetry 100 08/29/24 13:41 Oxygen Delivery Room Air 08/29/24 13:41 Temperature 97.7 F 08/29/24 16:52 Pulse Rate 59 L 08/29/24 16:52 Respiratory Rate 12 08/29/24 16:52 Blood Pressure 120/86 08/29/24 16:52 Pulse Oximetry 98 08/29/24 16:52 Oxygen Delivery Room Air 08/29/24 13:41 <Linnette Cornelius PA-C - Last Filed: 08/29/24 19:16> Vital Signs Temperature 97.4 F L 08/29/24 13:41 Pulse Rate 68 08/29/24 13:41 Respiratory Rate 24 H 08/29/24 13:41 Blood Pressure 144/100 H 08/29/24 13:41 Pulse Oximetry 100 08/29/24 13:41 Oxygen Delivery Room Air 08/29/24 13:41 Temperature 97.7 F 08/29/24 16:52 Pulse Rate 59 L 08/29/24 16:52 Respiratory Rate 12 08/29/24 16:52 Blood Pressure 120/86 08/29/24 16:52 Pulse Oximetry 98 08/29/24 16:52 Oxygen Delivery Room Air 08/29/24 13:41 <Darwin Bazan MD - Last Filed: 08/29/24 16:41> Lab Data Result diagrams: 08/29/24 14:26 08/29/24 14:26 <Linnette Cornelius PA-C - Last Filed: 08/29/24 19:16> Labs: Lab Results 08/29/24 Range/Units 14:26 WBC 6.8 (4.5-10.0) K/mm3 RBC 5.60 (4.6-6.20) M/mm3 Hgb 16.0 (14.0-18.0) g/dL Hct 48.7 (42.0-52.0) % MCV 87.0 (80-100) fl MCH 28.6 (26-34) pg MCHC 32.9 (32-36) g/dl RDW 12.0 (11.5-14.5) % Plt Count 220 (150-375) k/mm3 MPV 9.9 (7.4-10.4) fl Immature Gran % (Auto) 0.3 (0-0.5) % Neut % (Auto) 70.2 (45.5-73.1) % Lymph % (Auto) 20.4 (18.3-44.2) % [place] % (Auto) 7.5 (2.6-8.5) % Eos % (Auto) 1.0 (0-4.4) % Baso % (Auto) 0.6 (0.2-1.2) % Lymph # (Auto) 1.38 (0.9-3.2) K/mm3 [place] # (Auto) 0.5 (0.1-0.6) K/mm3 Eos # (Auto) 0.1 (0-0.3) K/mm3 Baso # (Auto) 0.0 (0.0-0.1) K/mm3 Abs Immat Gran (auto) 0.02 (0.00-0.031) K/mm3 Absolute Neuts (auto) 4.7 (1.3-6.7) K/mm3 Absolute Nucleated RBC 0.000 (0.0-0.012) K/mm3 Nucleated RBC % 0.0 (0.0-0.2) % Sodium 139 (137-145) mmol/L Potassium 3.9 (3.4-5.0) mmol/L Chloride 104 (98-107) mmol/L Carbon Dioxide 25 (22-30) mmol/L Anion Gap 10 (4-12) mmol/L BUN 19 (9-20) mg/dL Creatinine 1.02 (0.7-1.3) mg/dL Estim Creat Clear Calc 93 ml/min Estimated GFR > 60 (59 - ) Glucose 122 H (65-110) mg/dL Calcium 9.5 (8.4-10.2) mg/dL Total Bilirubin 0.9 (0.2-1.3) mg/dL AST 26 (17-59) U/L ALT 27 (6-50) U/L Alkaline Phosphatase 74 (38-126) U/L Total Protein 8.0 (6.3-8.2) g/dL Albumin 4.7 (3.5-5.1) g/dL <Linnette Cornelius PA-C - Last Filed: 08/29/24 19:16> Lab Results 08/29/24 Range/Units 14:26 WBC 6.8 (4.5-10.0) K/mm3 RBC 5.60 (4.6-6.20) M/mm3 Hgb 16.0 (14.0-18.0) g/dL Hct 48.7 (42.0-52.0) % MCV 87.0 (80-100) fl MCH 28.6 (26-34) pg MCHC 32.9 (32-36) g/dl RDW 12.0 (11.5-14.5) % Plt Count 220 (150-375) k/mm3 MPV 9.9 (7.4-10.4) fl Immature Gran % (Auto) 0.3 (0-0.5) % Neut % (Auto) 70.2 (45.5-73.1) % Lymph % (Auto) 20.4 (18.3-44.2) % [place] % (Auto) 7.5 (2.6-8.5) % Eos % (Auto) 1.0 (0-4.4) % Baso % (Auto) 0.6 (0.2-1.2) % Lymph # (Auto) 1.38 (0.9-3.2) K/mm3 [place] # (Auto) 0.5 (0.1-0.6) K/mm3 Eos # (Auto) 0.1 (0-0.3) K/mm3 Baso # (Auto) 0.0 (0.0-0.1) K/mm3 Abs Immat Gran (auto) 0.02 (0.00-0.031) K/mm3 Absolute Neuts (auto) 4.7 (1.3-6.7) K/mm3 Absolute Nucleated RBC 0.000 (0.0-0.012) K/mm3 Nucleated RBC % 0.0 (0.0-0.2) % Sodium 139 (137-145) mmol/L Potassium 3.9 (3.4-5.0) mmol/L Chloride 104 (98-107) mmol/L Carbon Dioxide 25 (22-30) mmol/L Anion Gap 10 (4-12) mmol/L BUN 19 (9-20) mg/dL Creatinine 1.02 (0.7-1.3) mg/dL Estim Creat Clear Calc 93 ml/min Estimated GFR > 60 (59 - ) Glucose 122 H (65-110) mg/dL Calcium 9.5 (8.4-10.2) mg/dL Total Bilirubin 0.9 (0.2-1.3) mg/dL AST 26 (17-59) U/L ALT 27 (6-50) U/L Alkaline Phosphatase 74 (38-126) U/L Total Protein 8.0 (6.3-8.2) g/dL Albumin 4.7 (3.5-5.1) g/dL <Darwin Bazan MD - Last Filed: 08/29/24 16:41> Imaging Data Radiologist's impression: ITS Impressions Head CT 08/29/24 14:53 IMPRESSION: No acute intracranial findings. <Darwin Bazan MD - Last Filed: 08/29/24 16:41> ECG Data EKG #1: ECG completion date: 08/29/24 <Darwin Bazan MD - Last Filed: 08/29/24 16:41> ECG completion time: 14:25 <Darwin Bazan MD - Last Filed: 08/29/24 16:41> EKG Interpretation: normal rate (60), sinus rhythm, normal QRS, normal QT and NL axis < Darwin Bazan MD - Last Filed: 08/29/24 16:41> Critical Care Time Critical Care Time Critical Care Time: No <Linnette Cornelius PA-C - Last Filed: 08/29/24 19:16> Discharge Plan Discharge Clinical Impression: Palpitations, Anxiety <Linnette Cornelius PA-C - Last Filed: 08/29/24 19:16> Patient Disposition: Home <Linnette Cornelius PA-C - Last Filed: 08/29/24 19:16> Condition: Stable <Linnette Cornelius PA-C - Last Filed: 08/29/24 19:16> Instructions: Antibiotic Form, Heart Palpitations (ED) <Linnette Cornelius PA-C - Last Filed: 08/29/24 19:16> Additional Instructions: Please return to the emergency department if you develop severe and persistent chest pain, difficulty breathing, dizziness, leg swelling or if you are coughing up blood as these can be signs of a medical emergency. Please call your doctor for a follow up appointment to determine the need for further testing. <Linnette Cornelius PA-C - Last Filed: 08/29/24 19:16> Patient Language: Green[place]ic <Linnette Cornelius PA-C - Last Filed: 08/29/24 19:16> Prescriptions: No Action losartan 50 mg tablet 50 mg PO DAILY nadolol 20 mg tablet 20 mg PO DAILY <Linnette Cornelius PA-C - Last Filed: 08/29/24 19:16> Follow-up/Referrals: Kendal,Joan Child, [employer] [Primary Care Provider] - 1 Week <Linnette Cornelius PA-C - Last Filed: 08/29/24 19:16>
--- OUTSIDE RECORDS SUMMARY | 2024-08-29 14:07 | XMS_ITS | Encounter Summary ---
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 ([place]) Organization Department of [facility] ([place]) Address [address] [place] [address] Care Team Providers Care Fire Official Name Role Phone TIFFANIE DALE Primary Care Provider Unavailabl e Insurance Providers: All historical and current Section Date Range: From patient's date of to the date document was created. This section includes the names of all active insurance providers for the patient. Insurance Provider Type of Coverage Plan Name Start of Policy Coverage End of Policy Coverage Group Number Member ID Insurance Provider's Telephone Number Policy Esqueda's Name Patient's Relationship to Policy Esqueda [employer] ([employer]) PRESCRIPT ION RX PLAN Oct 09, 2022 [id number] [phone] PEEIRISH ADA PATIENT [facility] [employer] Oct 09, 2022 [id number] [phone] PEEIRISHROSETTEEW PATIENT [facility] SERVICE STUART GE [employer] Oct 09, 2022 [id number] [phone] IRAJ ADA PATIENT Selected Encounter This section includes the information on record at [place] for the Encounter. Date/Time Encounter Type Encounter Description Reason Provider Source Oct 05, 2023 03:00 PM OFFICE O/P EST MOD 30 MIN PRIMARY CARE/MEDICINE ICD-10-CM Q54.1 Hypospadias, penile TIFFANIE DALE IHJay Encounter Template Text not used by [facility] Assessments - Encounter Diagnoses This section includes the primary and secondary diagnoses documented for the Encounter. Date/Time Primary/Secondary Diagnosis Diagnosis Name Provider Source Oct 07, 2023 10:18 AM PRIMARY Hypospadias, penile [facility] Oct 07, 2023 10:18 AM SECONDARY Essential (primary) hypertension [facility] Oct 07, 2023 10:18 AM SECONDARY Gastro-esophageal reflux disease without esophagitis [facility] Plan of Treatment: Future Appointments (+ 6 months) and Future Tests (+/- 45 days) The Plan of Treatment section includes future care activities for the patient from all [place] [facility]. This section includes future appointments and future orders which are active, pending or scheduled. Future Appointments This section includes appointments that were scheduled to occur 6 months from the date of the Encounter, up to a maximum of 20 appointments. The data comes from all [place] treatment facilities. Appointment Date/Time Appointment Type Appointme nt Facility Name Oct 19, 2023 11:00 AM AMBULATORY - PSYCHIATRY [facility] Oct 29, 2023 08:30 AM AMBULATORY - NONE [facility] Nov 16, 2023 10:00 AM AMBULATORY - PSYCHIATRY [facility] Nov 29, 2023 08:00 AM AMBULATORY - SURGERY [facility] Dec 03, 2023 08:00 AM AMBULATORY - PSYCHIATRY [facility] Dec 06, 2023 09:00 AM AMBULATORY - MEDICINE [facility] Dec 31, 2023 08:00 AM AMBULATORY - SURGERY [facility] Jan 24, 2024 02:00 PM AMBULATORY - MEDICINE [facility] Jan 28, 2024 02:00 PM AMBULATORY - SURGERY [facility] Feb 17, 2024 08:00 AM [facility] Feb 17, 2024 08:00 AM AMBULATORY - PS[facility]CHIATRY [facility] Mar 20, 2024 08:00 AM AMBULATORY - PSYCHIATRY [facility] Mar 20, 2024 08:00 AM [facility] Mar 27, 2024 10:30 AM AMBULATORY - MEDICINE [facility] Vital Signs: All taken on the encounter date This section contains inpatient and outpatient Vital Signs collected on the date of the Encounter. Date/Time Temperature Pulse Blood Pressure Respiratory Rate SP02 Pain Height Weight Body Mass Index Source Oct 05, 2023 03:04 PM 97.9 70 128/80 18 97 4 207 30 [facility] Social History: Smoking Status (Most current) and Tobacco Use (All prior to encounter date) This section includes the most current, and the historical, smoking and tobacco- related health factors from the [place] facility where the Encounter took place. Current Smoking Status This section includes the most current smoking, or tobacco-related health factor, from the [place] facility where the Encounter took place. Date/Time Current Smoking Status Comment Facil ity Oct 05, 2023 03:00 PM VA-TOBACCO FORMER USER [facility] Tobacco Use History This section includes a history of the smoking, or tobacco-related health factors, that were collected on or before the date of the Encounter. The data comes from the [place] facility where the Encounter took place. Date/Time Smoking Status/Tobacco Use Comment F acility Oct 05, 2023 03:00 PM VA-TOBACCO QUIT 5 TO < 15 YRS [facility] Aug 12, 2022 01:30 PM VA-TOBACCO FORMER USER [facility] Aug 12, 2022 01:30 PM VA-TOBACCO QUIT 5 TO < 15 YRS [facility] Oct 04, 2020 11:30 AM VA-TOBACCO FORMER USER [facility] Oct 04, 2020 11:30 AM VA-TOBACCO QUIT 5 TO < 15 YRS [facility] May 08, 2019 01:17 PM VA-TOBACCO DOESNT USE WI 30 MIN WAKEUP [facility] May 08, 2019 01:17 PM VA-TOBACCO USE < 1 YEAR [facility] May 08, 2019 01:17 PM VA-TOBACCO USE ADVICE [facility] May 08, 2019 01:17 PM 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 [facility] May 08, 2019 01:17 PM VA-TOBACCO USE MED NO [facility] May 08, 2019 01:17 PM VA-TOBACCO USER SOME DAYS [facility] Feb 18, 2018 09:18 AM VA-TOBACCO FORMER USER [facility] Feb 18, 2018 09:18 AM VA-TOBACCO QUIT < 1 YEAR [facility] September 23, 2017 02:13 PM QUIT TOBACCO >12 M O & <7 YRS AGO [facility] Jun 29, 2017 08:59 AM QUIT TOBACCO IN TH E LAST 12 MONTHS [facility] Jun 29, 2017 08:59 AM TOBACCO CESSATION REFERRAL DECLINED [facility] Jun 29, 2017 08:59 AM TOBACCO MEDS OFFER ED BUT DECLINED [facility] Jun 29, 2017 08:59 AM TOBACCO USER OFFERED MEDS [facility] Encounter Notes: All associated encounter notes This section contains the clinical notes associated to the Encounter. Date/Time Encounter Note(s) Provider Source Dec 12, 2023 10:35 PM PHYSICIAN LETTERS: LOCAL TITLE: TEST RESULT GENERAL LETTER ST[facility] STANDARD TITLE: PHYSICIAN LETTERS DATE OF NOTE: DEC 12, 2023@22:35 ENTRY DATE: DEC 12, 2023@22:35:06 AUTHOR: TIFFANIE DALE EXP COSIGNER: URGENCY: STATUS: COMPLETED [facility] [address] [place] [address] DEC 12, 2023 ADA GALO [address] [place] [id number] Dear Ada Galo, I would like to update you on your recent test results. HEMOGLOBIN A1C - Gives us information about your diabetes (sugar or glucose) control over the past 3 months. Your target is to keep your A1C below 6.5 %. HGA1C 5.4 % 12/03/2023 09:17 These readings are within normal limits. CBC - A complete blood count (CBC) gives important information about the kinds and numbers of cells in the blood, especially red blood cells, white blood cells, and platelets. HGB 15.5 g/dL 12/03/2023 09:17 HEMATOCRIT 45.9 % (12/03/23 09:17) PLT 250 10*3/uL 12/03/2023 09:17 WHITE BLOOD COUNT 5.4 10*3/uL (12/03/23 09:17) These readings are within normal limits. CHEM 7 - This is important information about the current status of your kidneys, liver, and electrolyte and acid/base balance as well as of your blood sugar and blood proteins. SODIUM 140 mEq/L 12/03/2023 09:17 POTASSIUM 4.1 mEq/L 12/03/2023 09:17 CHLORIDE 103 mEq/L 12/03/2023 09:17 UREA NITROGEN 20.9 mg/dL 12/03/2023 09:17 CREATININE 1.20 mg/dL 12/03/2023 09:17 CALCIUM 9.8 mg/dL 12/03/2023 09:17 CARBON DIOXIDE 24 mEq/L 12/03/2023 09:17 GLUCOSE 103 H mg/dL 12/03/2023 09:17 EGFR (CKD-EPI 2020) 81.89 12/03/2023 09:17 These readings are within normal limits. LIVER FUNCTION PANEL - These are tests for liver function: PROTEIN 7.4 g/dL 12/03/2023 09:17 ALBUMIN 4.5 g/dL 12/03/2023 09:17 TOTAL BILIRUBIN 0.9 mg/dL 12/03/2023 09:17 ALKALINE PHOSPHATASE 72 U/L 12/03/2023 09:17 AST/SGOT 20 U/L 12/03/2023 09:17 ALT/SGPT 30 U/L 12/03/2023 09:17 These readings are within normal limits. PSA - Prostate-specific antigen is a protein produced by cells of the prostate gland. The PSA test measures the level of PSA in the blood. PSA PROST. SPECIFIC AG.(PB-STL) 0.456 ng/mL 12/03/2023 09:17 These readings are within normal limits. VITAMIN D - Helps promote the proper utilization of calcium and phosphorus, thereby producing proper bone maintenance. VITAMIN D, 25-HYDROXY 21.2 L ng/mL 12/03/2023 09:17 These results are abnormal. Vitamin D level low I have ordered high-dose vitamin D to call ergocalciferol 50,000 international units to take Once a week for 8 weeks, after that can take vitamin D 3 2000 international units daily URINALYSIS - A urinalysis (or UA ) is an array of tests performed on urine and one of the most common methods of medical diagnosis. URINALYSIS URINE COLOR Light-Yellow 12/03/2023 09:25 APPEARANCE Clear 12/03/2023 09:25 U.PH 6.5 12/03/2023 09:25 U.BILIRUBIN Negative mg/dL 12/03/2023 09:25 U.NITRITE Negative mg/dL 12/03/2023 09:25 These readings are within normal limits. PLAN Please continue your treatment as we discussed during your visit. If you have any questions please call your family independence case manager. I look forward to seeing you at your next clinic appointment. Thank you for choosing the [facility] for your healthcare. FUTURE APPOINTMENTS: 12/31/2023 08:00 LUCINAUROLOGY 1 01/24/2024 14:[facility] PCP Sincerely, Tiffanie Dale MD Staff Physician PEETRICIAJORGEADA MOHAMMAD T [facility] Oct 05, 2023 03:12 PM PRIMARY CARE NOTE: LOCAL TITLE: PRIMARY CARE PROVIDER ESTABLISHED VISIT [facility] STANDARD TITLE: PRIMARY CARE NOTE DATE OF NOTE: OCT 05, 2023@15:12 ENTRY DATE: OCT 05, 2023@15:12:54 AUTHOR: TIFFANIE DALE EXP COSIGNER: URGENCY: STATUS: COMPLETED ESTABLISHED PATIENT [id number]: REASON FOR VISIT/CHIEF COMPLAINT: Wants urology consult at [place] for 3rd opinion HPI: .Mr. Galo is 33 yrs. old young He had a scheduled clinic visit has history of distal Hypospadias with distal Urethral stricture He is very frustrated with his ongoing hypospadias urethral stricture when he urinated it sprayed out all diretion per pt He initially had surgery done for Hypospadias by Dr Luc Sorensen in Urology at [facility] but it was not completely corrected for patient He previosuly report seen Urologist at [facility] Dr Monreal did Scope on him and told see Urethra Stricture and scar tissue as well some Bladder damage due to his ongoing distal Hypospadias with distal Urethral stricture and referred him [facility] Dr Ng who saw him last yrs told he do not see seen any uretheral stricture and do not thing he need any surgical interventions and told he has corection of Hypospadias and he will continue to have abnormal urine output likly decrease spit stream etc per pt He is frustrated and like to seeek 3rd opionionand wanst to see Urologist at [place] no other complaint PAST MEDICAL HISTORY: 1) Gastroesophageal reflux disease 2) Insomnia 3) Benign essential hypertension 4) Hand joint pain 5) Olecranon bursitis 6) Chronic back pain 7) Hypospadias, penile 8) Exposure to potentially hazardous substance ALLERGIES: Patient has answered NKA ALLERGY REVIEW: Allergy list reviewed and remains current. MEDICATION RECONCILIATION: I have reviewed the patient's medication list with the patient and/or his/her care-casting associate. Handwritten corrections, additions and/or deletions were made to the list. Corrected Outpatient Medication List was provided to the patient/caregiver. Active Outpatient Medications (including Supplies): Active Outpatient Medications Status 1) CHOLECALCIF 50MCG (D3-2,000UNIT) TAB TAKE TWO TABLETS ACTIVE BY MOUTH ONCE A DAY FOR VITAMIN D DEFICIENCY Active Non-VA Medications Status 1) Non-VA LOSARTAN 50MG TAB 25MG BY MOUTH ONCE A DAY ACTIVE 2) Non-VA NAPROXEN 500MG TAB 500MG BY MOUTH TWICE DAILY ACTIVE NEEDED 3) Non-VA PANTOPRAZOLE NA 20MG EC TAB 20MG BY MOUTH ACTIVE EVERY MORNING BEFORE A MEAL 4 Total Medications PHYSICAL EXAMINATION: Male General appearance: VITALS (most recent, as listed in the electronic record): B/P: 128/80 (10/05/2023 15:04) Pulse: 70 (10/05/2023 15:04) Temperature: 97.9 F [36.6 C] (10/05/2023 15:04) Weight: 207 lb [93.89 kg] (10/05/2023 15:04) Height: 70 in [177.8 cm] (06/15/2018 14:24) BMI: 29.8 Pain: 4 (10/05/2023 15:04) (0-10 scale) Physical findings: Averge built male walk w/o gait dist in NAD HEENT:nc,Scler/conj clear ,OP clear Neck:Supple no jvd, no bruit Heart:S1 S2 , No S3 S4, RRR , No m/g/r appreciated Lungs:clear to auscultate no wheezing or rale , Abdomen:soft nt no HSM BS+ Ext:no leg edema Neuro:A & O x3 , no focal deficit DATA REVIEW: HbA1C: HGA1C 5.2 % 08/06/2023 12:35 Lipid Panel: TRIGLYCERIDE 73 mg/dL 08/06/2023 12:35 CHOLESTEROL 177 mg/dL 08/06/2023 12:35 HDL(New) 53 mg/dL 08/06/2023 12:35 CALCULATED LDL 109 mg/dL 08/06/2023 12:35 CMP: SODIUM 137 mEq/L 08/06/2023 12:35 POTASSIUM 4.8 mEq/L 08/06/2023 12:35 CHLORIDE 104 mEq/L 08/06/2023 12:35 UREA NITROGEN 24.5 mg/dL 08/06/2023 12:35 CREATININE 1.01 mg/dL 08/06/2023 12:35 CALCIUM 9.7 mg/dL 08/06/2023 12:35 PROTEIN 7.2 g/dL 08/06/2023 12:35 ALBUMIN 4.4 g/dL 08/06/2023 12:35 ALKALINE PHOSPHATASE 73 U/L 08/06/2023 12:35 ALT/SGPT 76 H U/L 08/06/2023 12:35 AST/SGOT 48 H U/L 08/06/2023 12:35 TOTAL BILIRUBIN 1.0 mg/dL 08/06/2023 12:35 CARBON DIOXIDE 26 mEq/L 08/06/2023 12:35 GLUCOSE 102 H mg/dL 08/06/2023 12:35 EGFR (CKD-EPI 2020) 100.7 08/06/2023 12:35 CBC: WBC 5.6 10*3/uL 08/06/2023 12:35 RBC 5.21 10*6/uL 08/06/2023 12:35 HGB 15.4 g/dL 08/06/2023 12:35 HCT 47.0 % 08/06/2023 12:35 MCV 90.2 fL 08/06/2023 12:35 MCH 29.6 pg 08/06/2023 12:35 MCHC 32.8 L g/dL 08/06/2023 12:35 RDW 12.2 % 08/06/2023 12:35 PLT 197 10*3/uL 08/06/2023 12:35 MPV 10.4 fL 08/06/2023 12:35 NEUTROPHILS, AUTO % 47 % 08/06/2023 12:35 LYMPHOCYTES, AUTO % 33 % 08/06/2023 12:35 MONOCYTES, AUTO % 12 % 08/06/2023 12:35 EOSINOPHILS, AUTO % 6 % 08/06/2023 12:35 BASOPHILS, AUTO % 1 % 08/06/2023 12:35 NEUTROPHILS, ABSOLUTE 2.63 10*3/uL 08/06/2023 12:35 LYMPHOCYTES, ABSOLUTE 1.83 10*3/uL 08/06/2023 12:35 MONOCYTES, ABSOLUTE 0.69 10*3/uL 08/06/2023 12:35 EOSINOPHILS, ABSOLUTE 0.34 10*3/uL 08/06/2023 12:35 BASOPHILS, ABSOLUTE 0.05 10*3/uL 08/06/2023 12:35 PSA: No PSA EO data found TSH: No TSH (1YR) EO data found INR: No INR EO data found UA: URINE COLOR Colorless 08/06/2023 12:35 APPEARANCE Clear 08/06/2023 12:35 U.PH 7.5 08/06/2023 12:35 U.BILIRUBIN Negative mg/dL 08/06/2023 12:35 U.NITRITE Negative mg/dL 08/06/2023 12:35 Dilantin: ____ Digoxin: No data available for: DIGOXIN Chest x-ray: Impression for CHEST X-RAY, 2 VIEWS, 12/09/17, case [id number] No pneumothorax. No large pleural effusion. No focal consolidation. Normal heart size. Normal mediastinal contours. EKG: No data available for: EKG CONSULT STL EKG CONSULTS PB EKG RESULTS MA Result: Acceptable Follow-up Action: Data results reviewed with patient and/or caregiver. ASSESSMENT/PLAN: 1) )Hypospadias previously seen Dr Sorensen at [facility] Urology that as above seen for reconstrutive surgey at [facility] Dr Monreal told no surgical interventioas he dod not see problem He wanst to see Urologist at [place] for 3rd opionion as he contine has isseu with uriantion 2) HTN stable on [id number] day manged by PMD -Advsie watch diet and avoid salt and salty food discussed - 3)GERD - stable take Pantoprazole 20mg a day cont avoid caffeinated beverage or chocolate mint etc. , GERD precaution RETURN TO CLINIC: Return to Clinic order placed SUMMARY STATEMENT: Plan of care has been discussed with including expected therapeutic benefits and potential side effects of prescribed medication and treatments. [place] verbalizes understanding and is in agreement with the plan of care. Patient was instructed to keep all scheduled appointments and contact noc engineer for any additional problems. PREVENTION & SCREENING: Tdap Immunization: The patient declines to receive the recommended dose of Tdap vaccine. Immunization: TDAP Refusal Reason: PATIENT DECISION Patient refuses all immunization(s) in the TDAP group Date Documented: 10/12/23 00:52 /allan/ Tiffanie Dale MD Staff Physician Signed: 10/12/2023 00:53 TIFFANIE DALE [facility] Oct 05, 2023 03:05 PM NURSING NOTE: LOCAL TITLE: V15 PACT FACE TO FACE NOTE ST STANDARD TITLE: NURSING NOTE DATE OF NOTE: OCT 05, 2023@15:05 ENTRY DATE: OCT 05, 2023@15:05:42 AUTHOR: SHAUNA BAL EXP COSIGNER: URGENCY: STATUS: COMPLETED Provider Visit: Patient Identifiers : Full Name Date of Reason for visit: Established Follow-Up Mode of Arrival: Ambulatory Allergy Review: Patient has answered NKA Allergy list reviewed and remains current. Recent Vital Signs: Temperature: 97.9 F [36.6 C] (10/05/2023 15:04) Pulse: 70 (10/05/2023 15:04) Respiration: 18 (10/05/2023 15:04) B/P: 128/80 (10/05/2023 15:04) Pain: 4 (10/05/2023 15:04) Wt: 207 lb [93.89 kg] (10/05/2023 15:04) Ht: 70 in [177.8 cm] (06/15/2018 14:24) BMI: 29.8 POX: 97% (10/05/2023 15:04) PERSONAL HEALTH INVENTORY Notes: No data available for PHI note titles PERSONAL HEALTH INVENTORY - MAP: 07/28/2018 Phis What Do You Live For I LIVE TO SEE THE NEXT DAY. MY HEALTH MATTERS TO ME. I WOULD LIKE TO LIVE A LONG HEALTHY LIFE. WATCHING THE [employer] BRINGS FREDY AND HAPPINESS. What matters most to you in your life right now? -- [place]'s Response: MY Would you like to discuss any personal problem, family problem, alcohol use, drug use, or a mental or emotional illness? No Contact provided Primary Care phone number and encouraged to call if any questions or concerns. Review that after hours nurse line [phone] and emergency room are available 23/11 for patient use. Contact verbalized good understanding. No notification required for this note. Suicide Screen: C-SSRS Screening Morton-Suicide Severity Rating Scale (C-SSRS Screener) 1. Over the past month, have you wished you were or wished you could go to sleep and not wake up? No 2. Over the past month, have you had any actual thoughts of killing yourself? No 3. Over the past month, have you been thinking about how you might do this? Response not required due to responses to other questions. 4. Over the past month, have you had these thoughts and had some intention of acting on them? Response not required due to responses to other questions. 5. Over the past month, have you started to work out or worked out the details of how to kill yourself? Response not required due to responses to other questions. 6. If yes, at any time in the past month did you intend to carry out this plan? Response not required due to responses to other questions. 7. In your lifetime, have you ever done anything, started to do anything, or prepared to do anything to end your life (for example, collected pills, obtained a gun, gave away valuables, went to the roof but didn't jump)? No 8. If YES, was this within the past 3 months? Response not required due to responses to other questions. Alcohol Use Screen (AUDIT-C): Alcohol Screen: SCREEN FOR ALCOHOL (AUDIT-C) An alcohol screening test (AUDIT-C) was negative (score=1). 1. How often did you have a drink containing alcohol in the past year? Consider a drink to be a 12 ounce can or bottle of regular beer, 8 ounces of malt liquor, a 5 ounce glass of table wine, or a 1.5 ounce shot of liquor (like scotch, gin, or vodka). Monthly or less 2. How many drinks containing alcohol did you have on a typical day when you were drinking in the past year? One or two drinks 3. How often did you have six or more drinks on one occasion in the past year? Never Homelessness/Food Insecurity Screen: In the past 2 months, have you been living in stable housing that you own, rent, or stay in as part of a household? Yes - Living in stable housing. Are you worried or concerned that in the next 2 months you may NOT have stable housing that you own, rent, or stay in as part of a household? No - Not worried about housing near future The reports the following: Within the past 12 months, you worried whether your food would run out before you got money to buy more. Never true Within the past 12 months, the food you bought just didn't last and you didn't have money to get more. Never true Tobacco Use Screening: The patient is a former tobacco user. The patient quit five to less than fifteen years ago. /allan/ SHAUNA BAL LPN LICENSED PRACTICAL NURSE Signed: 10/05/2023 15:12 SHAUNA BAL [facility]
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
--- OUTSIDE RECORDS SUMMARY | 2024-08-29 14:07 | XMS_ITS | Encounter Summary ---
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 ns Affairs ([place]) Organization [facility] of [facility] ([place]) Address [address] [place] [address] Care Team Providers Care Endodontic Assistant Name Role Phone TIFFANIE DALE Primary Care [...] ION RX PLAN Oct 09, 2022 [id number] [phone] ADA GALO PATIENT [facility] [place] [facility] [email or web address] Oct 09, 2022 [id number] [phone] ADA GALO PATIENT [facility] POINT OF SERVICE [place] GE OF JAYJAY [email or web address] Oct 09, [phone] [phone] ADA GALO PATIENT Selected Encounter This section includes the information on record at MD for the Encounter. Date/Time Encounter Type Encounter Description Reason Provider Source Aug 17, 2024 04:00 PM PSYTX W PT W E/M 30 MIN MENTAL HEALTH CLINIC - IND ICD-10-CM F41.1 Generalized anxiety disorder ALEA NEGRON Encounter Template Text not used by [facility] Assessments - Encounter Diagnoses This section includes the primary and secondary diagnoses documented for the Encounter. Date/Time Primary/Secondary Diagnosis Diagnosis Name Provider Source Aug 17, 2024 04:18 PM PRIMARY Generalized anxiety disorder ALEA NEGRON [facility] Aug 17, 2024 04:18 PM SECONDARY Attention-deficit hyperactivity disorder, combined type ALEA NEGRON [facility] Aug 17, 2024 04:18 PM SECONDARY Panic disorder [episodic paroxysmal anxiety] ALEA NEGRON [facility] Plan of Treatment: Future Appointments (+ 6 months) and Future Tests (+/- 45 days) The Plan of Treatment section includes future care activities for the patient from all [facility]. This section includes future appointments and future orders which are active, pending or scheduled. Future Appointments This section includes appointments that were scheduled to occur 6 months from the date of the Encounter, up to a maximum of 20 appointments. The data comes from all [facility]. Appointment Date/Time Appointment Type Appointme nt Facility Name Aug 28, 2024 03:00 PM AMBULATORY - PSYCHIATRY [facility] September 18, 2024 03:00 PM AMBULATORY - PSYCHIATRY [facility] September 29, 2024 03:30 PM AMBULATORY - PSYCHIATRY MICHELE CHEN [facility] September 29, 2024 03:30 PM AMBULATORY - PSYCHIATRY [facility] Active, Pending, and Scheduled Orders This section includes a listing of several types of active, pending, and scheduled orders, including clinic medications orders, diagnostic test orders, procedure orders and consult orders; where the start date of the order is 45 days before the date of the Encounter or 45 days after the date of theEncounter. The data comes from all [facility]. Test Date/Time Test Type Test Details Facility Name Jul 18, 2024 12:00 AM Laboratory - Chemistry Order TSH W/ REFLEX FT4 (STL) GREEN LI-HEP PLASMA [facility] Jul 18, 2024 12:00 AM Laboratory - Chemistry Order VITAMIN D, 25-HYDROXY GOLD/RED SST SERUM [facility] Jul 18, 2024 12:00 AM Laboratory - Chemistry Order COMPREHENSIVE METABOLIC PANEL GREEN LI/HEP BLD/PLAS [facility]AS[facility] Jul 18, 2024 12:00 AM Laboratory - Chemistry Order URINALYSIS (STL-PB) URINE SP [facility] Jul 18, 2024 12:00 AM Laboratory - Chemistry Order LIPID PANEL (STL) GREEN LI/HEP BLD/PLAS PLASMA SP ONCE [facility] Jul 18, 2024 12:00 AM Laboratory - Chemistry Order CBC BLOOD SP [facility] Jul 18, 2024 12:00 AM Laboratory - Chemistry Order HGA1C BLOOD SP [facility] Encounter Notes: All associated encounter notes This section contains the clinical notes associated to the Encounter. Date/Time Encounter Note(s) Provider Source Aug 17, 2024 03:42 PM MENTAL HEALTH PHYS ICIAN NOTE: LOCAL TITLE: EK-PHYSICIAN MH STANDARD TITLE: MENTAL HEALTH PHYSICIAN NOTE DATE OF NOTE: AUG 17, 2024@15:42 ENTRY DATE: AUG 17, 2024@15:42:25 AUTHOR: ALEA NEGRON EXP COSIGNER: URGENCY: STATUS: COMPLETED A telehealth encounter was conducted with ADA GALO MATTHEW ALLEN at [facility] on Aug. Please see [facility] for progress note, clinical reminders and patient orders. /allan/ ALEA NEGRON MD PSYCHIATRIST Signed: 08/17/2024 16:18 ALEA NEGRON [facility]
--- OUTSIDE RECORDS SUMMARY | 2024-08-29 14:07 | XMS_ITS | Encounter Summary ---
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 ([place]) Organization [facility] ([place]) Address [address] [place] [address] Care Team Providers Care Electrician Supervisor Name Role Phone TIFFANIE DALE Primary Care [...] ION RX PLAN Oct 09, 2022 [phone] ADA GALO PATIENT [facility] [place] [facility] [employer] Oct 09, 2022 [id number] [phone] ADA GALO PATIENT [facility] POINT OF SERVICE [place] [facility] [employer] Oct 09, 2022 [id number] [phone] ADA GALO PATIENT Selected Encounter This section includes the information on record at [place] for the Encounter. Date/Time Encounter Type Encounter Description Reason Provider Source Dec 31, 2023 08:00 AM OFFICE O/P EST MOD 30 MIN UROLOGY CLINIC ICD-10-CM 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 WILMER BARAJAS E Encounter Template Text not used by [place] Assessments - Encounter Diagnoses This section includes the primary and secondary diagnoses documented for the Encounter. Date/Time Primary/Secondary Diagnosis Diagnosis Name Provider Source Dec 31, 2023 08:37 AM PRIMARY Postprocedural fossa navicularis urethral stricture DAMON ZIMMERMAN [facility] Plan of Treatment: Future Appointments (+ 6 months) and Future Tests (+/- 45 days) The Plan of Treatment section includes future care activities for the patient from all [place] treatmentfacilities. This section includes future appointments and future orders which are active, pending or scheduled. Future Appointments This section includes appointments that were scheduled to occur 6 months from the date of the Encounter, up to a maximum of 20 appointments. The data comes from all [place] treatment facilities. Appointment Date/Time Appointment Type Appointme nt Facility Name Jan 24, 2024 02:00 PM AM[facility]ATORY [facility] Jan 28, 2024 02:00 PM AMBULATORY - SURGERY [facility] Feb 17, 2024 08:00 AM AMBULATORY - [facility]IAT[facility] Feb 17, 2024 08:00 AM AMBULATORY - PSYCHIATRY [facility] Mar 20, 2024 08:00 AM AMBULATORY - PSYCHIATRY [facility] Mar 20, 2024 08:00 AM AMBULATORY - [facility]IATRY [facility] Mar 27, 2024 10:30 AM [facility]ORY - MEDICINE [facility] Apr 11, 2024 01:00 PM AMBULATORY - PSYCHIATRY [facility] Apr 17, 2024 11:00 AM AMBULATORY - PSYCHIATRY [facility] Apr 19, 2024 04:30 PM AMBULATORY - PSYCHIATRY [facility] Apr 19, 2024 04:30 PM AMBULATORY - PSYCHIATRY [facility] May 01, 2024 11:00 AM AMBULATORY - PSYCHIATRY [facility] May 24, 2024 05:00 PM AMBULATORY - PSYCHIATRY [facility] May 24, 2024 05:00 PM AMBULATORY - PS[facility]CHIATRY [facility] May 25, 2024 10:00 AM AMBULATORY - PSYCHIATRY [facility] Jun 08, 2024 10:00 AM AMBULATORY - PSYCHIATRY [facility] Jun 26, 2024 10:00 AM AMBULATORY - PSYCHIATRY [facility] Jun 26, 2024 05:00 PM AMBULATORY - PSYCHIATRY [facility] Jun 26, 2024 05:00 PM AMBULATORY - PS[facility]IATRY [facility] Lab Results: +/- 30 days of the encounter This section includes the Chemistry and Hematology Lab Results on record with [facility] for the patient. Radiology Reports and Pathology Reports are provided separately, in subsequent sections. Lab Results This section contains the Chemistry/Hematology Results that were resulted 30 days before or 30 daysafter the date of the Encounter. Date/Time Source Result Type Result - Unit Interpretation Reference Range Specimen Type Comment Dec 03, 2023 09:25 AM [facility] URINALYSIS (L-PB) URINE Specimen Type: URINE No comment entered. Ordering Provider: TIFFANIE DALE Report Released Date/Time: Oct 05, 2023 03:28 PM Reporting Lab: [facility] [address] Performing Lab: [facility] [address] URINE COLOR Light-Yellow Yellow U.BILIRUBIN Negative mg/dL Negative U.PH 6.5 5.0-8.0 APPEARANCE Clear Clear U.NITRITE Negative mg/dL Negative URN.GLUCOSE Normal mg/dL Negative URN.PROTEIN Negative mg/dL Negative-20 URN.UROBILINOGEN Normal mg/dL Normal URN.BLOOD Negative mg/dL Negative-Trace URN.KETONES Negative mg/dL Negative-Trac e URN.LEUK.EST. Negative mg/dL Negative-Tr lencho URN.SPECIFIC GRAVITY 1.025 1.005-1.029 Dec 03, 2023 09:24 AM [facility] DRUGS OF ABUSE (NEW) (STL) URINE Specimen Ty pe: URINE No comment entered. Ordering Provider: ADA LAZCANO Report Released Date/Time: Dec 03, 2023 09:06 AM Reporting Lab: [facility] [address] Performing Lab: [facility] [address] ETHANOL Negative mg/dL 0-20 AMPHET/METHAMPHETAMINE Negative ng/mL COCAINE METABOLITES Negative ng/mL CANNABINOIDS Negative ng/mL OPIATES Negative ng/mL CREATININE URINE/OTHERS 145.9 mg/dL 63.0 -166.0 Dec 03, 2023 09:18 AM [facility] TSH (MA-PB) SERUM Specimen Type: SERUM No comment entered. Ordering Provider: ADA LAZCANO Report Released Date/Time: Dec 03, 2023 09:06 AM Reporting Lab: [facility] [address] Performing Lab: [facility] [address] TSH 1.054 u[IU]/mL 0.470-5.000 Dec 03, 2023 09:18 AM [facility] FREE T4 (MA-PB) SERUM Specimen Type: SERUM No comment entered. Ordering Provider: ADA LAZCANO Report Released Date/Time: Dec 03, 2023 09:06 AM Reporting Lab: [facility] [address] Performing Lab: [facility] [address] FREE T4 (MA-PB) 1.13 ng/mL 0.70-1.48 Dec 03, 2023 09:18 AM [facility] TOTAL T3 (STL) PLASMA Specimen Type: PLASM A No comment entered. Ordering Provider: ADA LAZCANO Report Released Date/Time: Dec 03, 2023 09:06 AM Reporting Lab: [facility] [address] Performing Lab: [facility] [address] TOTAL T3 (STL) 103.33 ng/dL 58.00-159.00 Dec 03, 2023 09:17 AM [facility] PROST. SPECIFIC AG.(PB-STL) SERUM Specimen Ty pe: SERUM Comment: The listed sex of this patient may not be a typical indication for this test. Therefore, reference ranges or interpretive criteria listed may not be valid. Clinical correlation suggested. Ordering Provider: TIFFANIE DALE Report Released Date/Time: Oct 05, 2023 03:28 PM Reporting Lab: [facility] [address] Performing Lab: [facility] [address] PROST. SPECIFIC AG.(PB-STL) 0.456 ng/mL 0.000-4.000 Dec 03, 2023 09:17 AM [facility] HGA1C BLOOD Specimen Type: BLOOD No comment entered. Ordering Provider: TIFFANIE DALE Report Released Date/Time: Oct 05, 2023 03:28 PM Reporting Lab: [facility] [address] Performing Lab: [facility]1 [place] [address] HGA1C 5.4 4.0-6.0 Dec 03, 2023 09:17 AM [facility] VITAMIN D, 25-HYDROXY SERUM Specimen Type: SE RUM Comment: The listed sex of this patient may not be a typical indication for this test. Therefore, reference ranges or interpretive criteria listed may not be valid. Clinical correlation suggested. Ordering Provider: TIFFANIE DALE Report Released Date/Time: Oct 05, 2023 03:28 PM Reporting Lab: [facility] [address] Performing Lab: [facility] [address] VITAMIN D, 25-HYDROXY 21.2 ng/mL L 30-96 Dec 03, 2023 09:17 AM [facility] CBC BLOOD Specimen Type: BLOOD No comment entered. Ordering Provider: TIFFANIE DALE Report Released Date/Time: Oct 05, 2023 03:28 PM Reporting Lab: [facility] [place] [address] Performing Lab: [facility] [place] [address] WBC 5.4 10*3/uL 3.6-11.2 RBC 5.29 10*6/uL 4.10-5.70 HGB 15.5 g/dL 13.1-16.8 HCT 45.9 38.2-48.4 MCV 86.8 fL 80.0-100.0 MCH 29.3 pg 27.0-34.0 MCHC 33.8 g/dL 33.0-36.0 PLT 250 10*3/uL 150-400 MPV 9.3 fL 7.5-11.2 RDW 12.1 11.8-15.1 LYMPHOCYTES, AUTO % 30 MONOCYTES, AUTO % 8 NEUTROPHILS, AUTO % 60 EOSINOPHILS, AUTO % 2 BASOPHILS, AUTO % 1 LYMPHOCYTES, ABSOLUTE 1.61 10*3/uL 0.77- 4.50 MONOCYTES, ABSOLUTE 0.43 10*3/uL 0.19-0. 80 NEUTROPHILS, ABSOLUTE 3.22 10*3/uL 2.10- 8.00 EOSINOPHILS, ABSOLUTE 0.10 10*3/uL 0.00- 0.60 BASOPHILS, ABSOLUTE 0.05 10*3/uL 0.00-0. 20 Dec 03, 2023 09:17 AM [facility] COMPREHENSIVE METABOLIC PANEL PLASMA Specimen Type: PLASMA Comment: No hemolysis noted. Ordering Provider: TIFFANIE DALE Report Released Date/Time: Oct 05, 2023 03:28 PM Reporting Lab: [facility] [address] Performing Lab: [facility] [address] CREATININE 1.20 mg/dL 0.70-1.30 UREA NITROGEN 20.9 mg/dL 9.0-25.0 GLUCOSE 103 mg/dL H 72-99 SODIUM 140 meq/L 136-145 POTASSIUM 4.1 meq/L 3.5-5.0 CHLORIDE 103 meq/L 98-107 CARBON DIOXIDE 24 meq/L 22-31 CALCIUM 9.8 mg/dL 8.4-10.4 PROTEIN 7.4 g/dL 6.0-8.6 ALBUMIN 4.5 g/dL 3.4-5.0 TOTAL BILIRUBIN 0.9 mg/dL 0.2-1.2 ALKALINE PHOSPHATASE 72 U/L 40-150 AST/SGOT 20 U/L 5-34 ALT/SGPT 30 U/L 8-40 EGFR (CKD-EPI 2020) 81.89 >60 Vital Signs: All taken on the encounter date This section contains inpatient and outpatient Vital Signs collected on the date of the Encounter. Date/Time Temperature Pulse Blood Pressure Respiratory Rate SP02 Pain Height Weight Body Mass Index Source Dec 31, 2023 09:35 AM 97.5 92 142/93 20 99 0 70.5 213.7 30 [facility] Pathology Reports: +/- 30 days of the encounter Pathology Reports For cases when an order for pathology services may have been completed prior to the date of the Encounter, the report list includes the Pathology Reports that were completed up to 30 days before dateof the Encounter. For cases when an order for pathology services may have been completed after the date of the Encounter, the report list also includes the Pathology Reports that were completed up to30 days after date of the Encounter. The data comes from all [place] treatment facilities. Date/Time Pathology Report Provider Source Dec 03, 2023 09:25 AM LR MICROBIOLOGY RE PORT: Accession [UID]: [id number] [[id number]] Received: Dec 03, 2023@09:25 Collection sample: URINE,CLEAN CATCH Collection date: Dec 03, 2023 09:25 Site/Specimen: URINE Provider: TIFFANIE DALE T Test(s) ordered: C&S URINE..................... completed: Dec 04, 2023 13:29 * BACTERIOLOGY FINAL REPORT => Dec 04, 2023 13:31 TECH CODE: [id number] Bacteriology Remark(s): Culture shows NO GROWTH IN 1 DAY. 12-04-2023 =--=--=--=--=--=--=--=--=-- =--=--=--=--=--=--=--=--=-- =--=--=--=--=--=--=--=-- Performing Laboratory: Bacteriology Report [facility]formed By: [facility] [address] [place] [address] CLIA# [id number] [address] [facility] [address] [place] [address] GERRIKINGA Erick [facility] Encounter Notes: All associated encounter notes This section contains the clinical notes associated to the Encounter. Date/Time Encounter Note(s) Provider Source Jan 05, 2024 09:20 AM ACCOUNTING OF DISCLOSURES NOTE: LOCAL TITLE: STATE PRESCRIPTION DRUG MONITORING PROGRAM STANDARD TITLE: ACCOUNTING OF DISCLOSURES NOTE DATE OF NOTE: JAN 05, 2024@09:20:53 ENTRY DATE: JAN 05, 2024@09:20:53 AUTHOR: ESPINOZA PERSAUDER: URGENCY: STATUS: COMPLETED This PDMP query was submitted by Jerardo Persaud MD. The clinical justification for this PDMP query is to review controlled substances prescribed outside of the [facility], and any additional information that may become available, as an important component of standard clinical care, and in accordance with [facility] policy. Patient information was shared with the PDMP Appriss [place]. No prescription(s) for controlled substances outside the [facility] were found in the last 90 days. /allan/ Waldemar Persaud M.D. Staff Psychiatrist[place] [facility] [place]igned: 01/05/2024 09:22 ESPINOZA PERSAUD [facility] Jan 05, 2024 09:20 AM PHARMACY NOTE: LOCAL TITLE: CONTROLLED SUBSTANCES PRESCRIBING STL STANDARD TITLE: PHARMACY NOTE DATE OF NOTE: JAN 05, 2024@09:20 ENTRY DATE: JAN 05, 2024@09:21:05 AUTHOR: ESPINOZA PERSAUDER: URGENCY: STATUS: COMPLETED Stimulants Prescription is for a non-opioid controlled substance. Per Directive and Policy, a PDMP is required for new starts and then at a minimum, annually for continued prescribing. Last available State PDMP: Prog Note DT Title Author Last Subhash DT 12/03/2023 STATE PRESCRIPTION DRUG TOCHTROP,[place] R MONITORING PROGRAM Prog Note DT Title Author Last Subhash DT 12/03/2023 STATE PRESCRIPTION DRUG TOCHTROP,ADA R MONITORING PROGRAM Will check the State PDMP today. [SPDM] The clinical justification for this PDMP query is to review controlled substances prescribed outside of the [facility], and any additional information that may become available, as an important component of standard clinical care, and in accordance with [facility] policy. *Date of Prescription Monitoring Program Query: Jan I reviewed patient's PDMP report for Schedule II, III, IV, or V medications from the following State PDMP *Findings: No prescription(s) for controlled substances outside the [facility] were found in the last 90 days. [END*] /allan/ Waldemar Persaud M.D. Staff Psychiatrist, [facility] [place]igned: 01/05/2024 09:22 ESPINOZA PERSAUD [facility] Dec 31, 2023 07:59 AM UROLOGY CONSULT: LOCAL TITLE: UROLOGY CONSULT [facility] STANDARD TITLE: UROLOGY CONSULT DATE OF NOTE: DEC 31, 2023@07:59 ENTRY DATE: DEC 31, 2023@07:59:47 AUTHOR: DAMON ZIMMERMAN EXP COSIGNER: WILMER BARAJAS URGENCY: STATUS: COMPLETED CHIEF COMPLAINT, HPI, EXAM & DATA CC: Meatal stenosis, 3rd opinion HPI: 33 yo M with history of untreated distal hypospadias who was seen in [place] by urology for weak stream and underwent what sounds like a meatoplasty in mid presenting for 3rd opinion on concern for meatal stricture - Previously seen at [place] in [place], there was a meatal stricture on exam with difficulty voiding, straining. - Referred to Dr. Sorensen at [facility] for reconstruction, physical exam showed RUG/VCUG?at that time?showed no obvious stricture and physical exam revealed meatal stenosis with subcoronal hypospadias. PVR per VCUG was low. He underwent Distal Urethroplasty on 03/25/[address] Sorensen. Post op he noticed worsening split stream and feels like his stream was worse and needs more pressure to void. Post op VCUG/RUG without evidence of siease - He saw Dr. 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 - He was referred to Joe reconstructive Urologist at [facility], who performed cysto and did not see any stricture and that he did not need any surgical intervention, and states he will likely to have split stream from previous surgeries - Denies any hematuria/UTI. - Endorses ongoing frequency, sometimes Q1h. Endorses weak/split stream, straining to void. He says his stream is like a sprinkler spraying in many different directions - Trialed flomax but taken off due to retrograde ejaculation, currently trying to have a kid. - Trialed oxybutynin in , doesnt remember if it helps ROS/PMH Denies F/C/N/V/CP/SOB Remainder of PMH listed below and reviewed? Yes TARGETED PHYSICAL EXAM: Gen: NAD HEENT: NC/AT Resp: NLB : meatus noted just proximal to glans, appears patent , non-stenotic, no palpable plaques, no skin lesions PVR (by scan): Unable to void in office due to being bladder shy CREATININE:CREATININE 1.20 mg/dL 12/03/2023 09:17 PSA: PROST. SPECIFIC AG.(PB-STL) 0.456 ng/mL 12/03/2023 09:17 ASSESSM ENT AND PLAN --- 33 yo M with history of untreated distal hypospadias who was seen in [place] by urology for weak stream and underwent what sounds like a meatoplasty in mid , with distal urethroplasty/meatoplasty with Dr. Sorensen in 2021, with weak/spraying stream and difficulty emptying bladder. He has seen 2 other Urologists at second opinion with first Urologist saying he had possible fossa navicularis narrowing, and 2nd opnion with patent urethra and meatus. Discussed we will need cystoscopy to evaluate. Discussed that if there is no strictures, he may have physiological spraying from his previous surgeries and further surgeries may not help Attempted to get PVR today, unable to void 2/2 being bladder shy. -RTC for cystoscopy, with PVR. Discussed that if there is no evidence of stricture, then future surgeries may not help. If low PVR, can trial Anti- spasmotic after cystoscopy. (MORE INFORMATION) -- * LABS------ PSA Trend: PROST. SPECIFIC AG.(PB-STL) 0.456 ng/mL 12/03/2023 09:17 PROST. SPECIFIC AG.(PB-STL) 0.370 ng/mL 10/04/2020 12:45 BMP: SODIUM 140 mEq/L 12/03/2023 09:17 POTASSIUM 4.1 mEq/L 12/03/2023 09:17 CHLORIDE 103 mEq/L 12/03/2023 09:17 UREA NITROGEN 20.9 mg/dL 12/03/2023 09:17 CREATININE 1.20 mg/dL 12/03/2023 09:17 CALCIUM 9.8 mg/dL 12/03/2023 09:17 CARBON DIOXIDE 24 mEq/L 12/03/2023 09:17 GLUCOSE 103 H mg/dL 12/03/2023 09:17 EGFR (CKD-EPI 2020) 81.89 12/03/2023 09:17 CBC: WBC 5.4 10*3/uL 12/03/2023 09:17 RBC 5.29 10*6/uL 12/03/2023 09:17 HGB 15.5 g/dL 12/03/2023 09:17 HCT 45.9 % 12/03/2023 09:17 MCV 86.8 fL 12/03/2023 09:17 MCH 29.3 pg 12/03/2023 09:17 MCHC 33.8 g/dL 12/03/2023 09:17 RDW 12.1 % 12/03/2023 09:17 PLT 250 10*3/uL 12/03/2023 09:17 MPV 9.3 fL 12/03/2023 09:17 NEUTROPHILS, AUTO % 60 % 12/03/2023 09:17 LYMPHOCYTES, AUTO % 30 % 12/03/2023 09:17 MONOCYTES, AUTO % 8 % 12/03/2023 09:17 EOSINOPHILS, AUTO % 2 % 12/03/2023 09:17 BASOPHILS, AUTO % 1 % 12/03/2023 09:17 NEUTROPHILS, ABSOLUTE 3.22 10*3/uL 12/03/2023 09:17 LYMPHOCYTES, ABSOLUTE 1.61 10*3/uL 12/03/2023 09:17 MONOCYTES, ABSOLUTE 0.43 10*3/uL 12/03/2023 09:17 EOSINOPHILS, ABSOLUTE 0.10 10*3/uL 12/03/2023 09:17 BASOPHILS, ABSOLUTE 0.05 10*3/uL 12/03/2023 09:17 UA: URINE COLOR Light-Yellow 12/03/2023 09:25 APPEARANCE Clear 12/03/2023 09:25 U.PH 6.5 12/03/2023 09:25 U.BILIRUBIN Negative mg/dL 12/03/2023 09:25 U.NITRITE Negative mg/dL 12/03/2023 09:25 PAST MEDICAL, SOCIAL, FAMILY HX AND ROS 1) Gastroesophageal reflux disease 2) Insomnia 3) Benign essential hypertension 4) Hand joint pain 5) Olecranon bursitis 6) Chronic back pain 7) Hypospadias, penile 8) Exposure to potentially hazardous substance 9) Attention deficit hyperactivity disorder, combined type MEDICATIONS: Active Outpatient Medications (including Supplies): Active Outpatient Medications Status 1) ERGOCALCIF 1,250MCG (D2-50,000UNIT) CAP TAKE ONE ACTIVE CAPSULE BY MOUTH EVERY WEEK FOR VITAMIN D DEFICIENCY 2) METHYLPHENIDATE(EQV-CONCERT A)18MG SA TAB TAKE ONE ACTIVE TABLET BY MOUTH ONCE A DAY FOR ADHD *SWALLOW WHOLE, DO NOT CRUSH, SPLIT, OR CHEW. 3) MIRTAZAPINE 30MG TAB TAKE ONE-HALF TABLET BY MOUTH AT ACTIVE BEDTIME FOR 7 DAYS, THEN TAKE ONE TABLET AT BEDTIME FOR 30 DAYS TAKE ONE HOUR PRIOR TO BEDTIME. Active Non-VA Medications Status 1) Non-VA LOSARTAN 50MG TAB 25MG BY MOUTH ONCE A DAY ACTIVE 2) Non-VA NAPROXEN 500MG TAB 500MG BY MOUTH TWICE DAILY ACTIVE NEEDED 3) Non-VA PANTOPRAZOLE NA 20MG EC TAB 20MG BY MOUTH ACTIVE EVERY MORNING BEFORE A MEAL 6 Total Medications Allergies: Patient has answered NKA /allan/ Damon Zimmerman MD Urology Resident Signed: 12/31/2023 08:37 /allan/ WILMER BARAJAS MD Staff Physician, Urology Cosigned: 12/31/2023 16:17 DAMON ZIMMERMAN [facility]
--- OUTSIDE RECORDS SUMMARY | 2024-08-29 14:07 | XMS_ITS | Encounter Summary ---
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 [place] [facility] Address [address] [place] [address] Care Team Providers Care Call Center Associate Name Role Phone TIFFANIE DALE Primary Care [...] ION RX PLAN Oct 09, 2022 [id number] [phone] ADA GALO PATIENT [facility] [place] [facility] [place] [employer] Oct 09, 2022 [id number] [phone] IRAJ ADA PATIENT [facility] POINT OF SERVICE [place] [employer] Oct 09, 2022 [id number] [phone] ADA GALO PATIENT Selected Encounter This section includes the information on record at [place] for the Encounter. Date/Time Encounter Type Encounter Description Reason Pro vider Source Jun 26, 2024 05:00 PM Outpatient Encounter ADMIN PAT ACTIVTIES (MASNONCT) IHE Encounter Template Text not used by [facility] Plan of Treatment: Future Appointments (+ 6 months) and Future Tests (+/- 45 days) The Plan of Treatment section includes future care activities for the patient from all [place] [facility]. This section includes future appointments and future orders which are active, pending or scheduled. Future Appointments This section includes appointments that were scheduled to occur 6 months from the date of the Encounter, up to a maximum of 20 appointments. The data comes from all [facility]. Appointment Date/Time Appointment Type Appointme nt Facility Name Jul 11, 2024 09:30 AM AMBULATORY - PS[facility]RY [facility] Jul 20, 2024 04:00 PM AMBULATORY - [facility]RY [facility] Jul 20, 2024 04:00 PM [facility] Jul 21, 2024 08:30 AM AM[facility]ULATORY - MEDICINE [facility] Jul 31, 2024 02:00 PM AMBULATORY - PSYCHI[facility]RY [facility] Aug 14, 2024 01:00 PM AMBULATORY - PS[facility]IATRY [facility] Aug 17, 2024 04:00 PM AMBULATORY - [facility]RY [facility] Aug 17, 2024 04:00 PM AM[facility]UL[facility]ORY [facility] Aug 28, 2024 03:00 PM AMBULATORY - PSYCHIATRY [facility] September 18, 2024 03:00 PM AMBULATORY - PSYCHIATRY [facility] September 29, 2024 03:30 PM AMBUL[facility]ORY - [facility] September 29, 2024 03:30 PM AMBULATORY - [facility]ATRY [facility] Active, Pending, and Scheduled Orders This section includes a listing of several types of active, pending, and scheduled orders, including clinic medications orders, diagnostic test orders, procedure orders and consult orders; where the start date of the order is 45 days before the date of the Encounter or 45 days after the date of theEncounter. The data comes from all [facility]. Test Date/Time Test Type Test Details Facility Name Jul 18, 2024 12:00 AM Laboratory - Chemistry Order TSH W/ REFLEX FT4 (STL) GREEN LI-HEP PLASMA [facility] Jul 18, 2024 12:00 AM Laboratory - Chemistry Order VITAMIN D, 25-HYDROXY GOLD/RED SST SERUM [facility] Jul 18, 2024 12:00 AM Laboratory - Chemistry Order COMPREHENSIVE METABOLIC PANEL GREEN LI/HEP BLD/PLAS PLASMA [facility] Jul 18, 2024 12:00 AM Laboratory - Chemistry Order LIPID PANEL (STL) GREEN LI/HEP BLD/PLAS PLASMA SP ONCE [facility] Jul 18, 2024 12:00 AM Laboratory - Chemistry Order URINALYSIS (STL-PB) URINE SP [facility] Jul 18, 2024 12:00 AM Laboratory - Chemistry Order CBC BLOOD SP [facility] Jul 18, 2024 12:00 AM Laboratory - Chemistry Order [id number] BLOOD SP [facility] Encounter Notes: All associated encounter notes This section contains the clinical notes associated to the Encounter. Date/Time Encounter Note(s) Provider Source Jun 26, 2024 04:44 PM ACCOUNTING OF DISC LOSURES NOTE: LOCAL TITLE: STATE PRESCRIPTION DRUG MONITORING PROGRAM STANDARD TITLE: ACCOUNTING OF DISCLOSURES NOTE DATE OF NOTE: JUN 26, 2024@16:44:40 ENTRY DATE: JUN 26, 2024@16:44:40 AUTHOR: ALEA NEGRON EXP COSIGNER: URGENCY: STATUS: COMPLETED This PDMP query was submitted by Alea Negron. The clinical justification for this PDMP query is to review controlled substances prescribed outside of the [place], and any additional information that may become available, as an important component of standard clinical care, and in accordance with [facility] policy. Patient information was shared with the PDMP [employer]. No prescription(s) for controlled substances outside the [facility] were found in the last 90 days. /allan/ ALEA NEGRON Psychiatrist V15 Signed: 06/26/2024 16:44 ALEA NEGRON [facility] Jun 26, 2024 04:44 PM PSYCHIATRY NOTE: LOCAL TITLE: PSYCHIATRY ST[facility] STANDARD TITLE: PSYCHIATRY NOTE DATE OF NOTE: JUN 26, 2024@16:44 ENTRY DATE: JUN 26, 2024@16:45:03 AUTHOR: ALEA NEGRON EXP COSIGNER: URGENCY: STATUS: COMPLETED Encounter was conducted via Telehealth Modality with patient located at home via [facility]. Verbal informed consent was obtained from the at the time of the encounter. Video room locked at time of appointment. Two patient identifiers were utilized for patient identification. address: [address] [place] [address] phone: Primary NOK: SHYAM GALO Relation: UNRELATED FRIEND/ <street address not available> Length of services provided: 25 minutes (15 video, 10 chart review and documentation) Chief complaint: f/u MH med management with diagnoses ADHD, combined type GLORIA with panic attacks r/o mood disorder Subjective- Today, the patient reports: At last appointment formally stopped mirtazapine which was causing next day hangover sensation. Formally stopped Concerta due to anxiety. He had stopped taking hydroxyzine as well. Continued clonazepam 0.25mg PO BID prn for severe anxiety only. Reports doing pretty good. Has continued f/u with Psychology, saw cardiology 2 weeks ago he thinks I have inappropriate sinus tachycardia. States seeing more of this in younger population and possibly related to COVID. Tomorrow getting echo and angiogram anticipating these should be normal, if so plans to start a beta asad. Currently taking the clonazepam as needed with benefit. No concerns with any side effects and feels this keeping him from having full panic episodes. Anticipates having less anxiety once all tests done with cardiology. Went to work related event recently without difficulty and was pleased with this. Had one episode of panic after not sleeping well nothing where I had to call 911 or anything. Hoping his mood will be more back to baseline after he is done with testing as well as won't be as focused on this concern and letting it impact other areas. Would like to get back on ADHD medication at some point, we discussed after starting beta asad would be reasonable to consider especially considering he will have had full cardiac work-up. He has had difficulty with distractibility off this medication impacting him at work and home. REVIEW OF SYSTEMS (ROS): Sleep: recent sleep study showed VANESSA and has CPAP ordered Energy level: ongoing fear of being too active Appetite: always hungry gained a little bit of weight SI and HI: denied AVH, paranoia, delusions: denied Hypomania or montrell: denied Pain: denied ========= History from initial encounter with this provider for reference: Firearms Access: yes Nutrition: no unexpected weight changes/other nutritional concerns Psychiatric History: Past therapy: IPT helpful in past, tried EMDR but did not feel was a good fit Past medical interventions: escitalopram- zombie , clonidine ED MH hospitalizations: denied Substance Related Treatment: denied Suicide attempts or SIB: denied Family Psychiatric History: father AUD Social History: Raised by: mother more than father, when he was 3 Primary relatives: only child Legal: denied Highest level of education or training: bachelor's Employment/Income: [employer] Housing: with Relationship status: Children: denied Any concern for safety/domestic violence: denies History: [facility] 03-18 MST: denied Combat: deployed to [place] 2011 Substance use: tobacco: denied alcohol: heavy at times, lately does not drink anymore THC: denied stimulants: coffee- 1-2 cups coffee (has cut back), prescribed stimulant opiates: denied other: denied End history from initial encounter with this provider. ====== ALLERGIES: Patient has answered NKA MEDICATIONS RECONCILED: Active and Recently Outpatient Medications (excluding Supplies): Active Outpatient Medications Status = 1) CLONAZEPAM 0.5MG TAB TAKE ONE-HALF TABLET BY MOUTH ONCE A ACTIVE DAY NEEDED MAY CAUSE DROWSINESS. DO NOT DRINK ALCOHOL. Indication: FOR ANXIETY 2) HYDROXYZINE HCL 10MG TAB TAKE ONE TABLET BY MOUTH THREE ACTIVE TIMES A DAY NEEDED *MAY CAUSE DROWSINESS* IF ANXIETY PERSISTS, MAY INCREASE TO TWO TABLETS BY MOUTH THREE TIMES A DAY NEEDED. Indication: FOR ANXIETY 3) LOSARTAN 100MG TAB TAKE ONE-HALF TABLET BY MOUTH ONCE A DAY ACTIVE Indication: FOR HIGH BLOOD PRESSURE 4) MIRTAZAPINE 30MG TAB TAKE ONE TABLET BY MOUTH AT BEDTIME ACTIVE TAKE ONE HOUR PRIOR TO BEDTIME. Indication: ANXIETY/SLEEP/MOOD 5) PANTOPRAZOLE NA 40MG EC TAB TAKE ONE TABLET BY MOUTH EVERY ACTIVE MORNING BEFORE A MEAL TAKE 30 MINUTES BEFORE MEAL(S) Indication: FOR GASTROESOPHAGEAL REFLUX DISEASE Active Non-[facility] Medications Status = 1) Non-VA LOSARTAN 50MG TAB 25MG BY MOUTH ONCE A DAY ACTIVE Indication: FOR HIGH BLOOD PRESSURE 2) Non-VA NAPROXEN 500MG TAB 500MG BY MOUTH TWICE DAILY ACTIVE NEEDED 7 Total Medications MEDICAL HISTORY: 1) Gastroesophageal reflux disease 2) Insomnia 3) Benign essential hypertension 4) Hand joint pain 5) Olecranon bursitis 6) Chronic back pain 7) Hypospadias, penile 8) Exposure to potentially hazardous substance 9) Attention deficit hyperactivity disorder, combined type 10) Generalized anxiety disorder 11) Panic LABS: CBC: CBC EO [place]. date: 12/03/23 [...] 09:17 PLASMA EGFR (CKD-EPI 202 81.89 Ref: >= 60 Comment: No hemolysis noted. 12/03/2023 09:17 BLOOD [...] 12:35 TSH: TSH 1.054 uIU/mL 12/03/2023 09:18 [place]: ____ Depakote: ____ Carbamazepine: No CARBAMAZEPINE EO [...] data found Vitals: VSD - Detailed Vitals No data available Mental Status Exam: Orientation: A+O to person, date and situation grossly General appearance: appropriately groomed, good eye contact via video, Mood: pretty good Affect: slightly restricted but appropriately reactive, less anxious though still some anxiety discussing cardiology f/u/testing Gait: patient was seated Memory: sufficient to report recent events Attention/concentration: sufficient for conversation Muscle tone/strength: sufficient to sit independently Speech: fluent, normal rate, tone Thought process: goal directed conversation Fund of Knowledge: Appropriate/good Associations: coherent Thought content: Denies SI, HI and AVH. Judgment and insight: Both fair Therapy: <16min Assessment: ADHD, combined type GLORIA with panic [...] modify as needed every 12 months -Progress: benefit with current, continue, consider stimulant again in f/u --Medications: Continue: He has stopped mirtazapine feeling hungover next day with it. States he may take rarely for a good night sleep so will not discontinue for now He has stopped Concerta due to anxiety but will consider restart 18mg next visit Continue clonazepam 0.25mg PO daily prn for severe anxiety only. Denies SEs. The patient indicated an informed decision to take medications as described above. The [facility] was informed that if any new side effects or problems arise, the Clinic should be contacted, or can come in for re- evaluation of medication. --Therapy: as directed --labs/rads/consults: no new today --Return to clinic: f/u next month, sooner prn The [facility] agrees to contact the clinic sooner for any new or worsening symptoms. --Discussed plan as written above with who verbalized understanding and agreement with plan. Detailed safety plan was discussed with the patient. -[facility] would ask for help if needed -All ways to access care discussed with patient including how and when to call the mental health clinic, 24 hour emergency room services, [facility] (126 and press 1 or Text [phone]) and 911. Patient voiced understanding and agreed to utilize these services when needed. /allan/ ALEA NEGRON Psychiatrist V15 Signed: 06/26/2024 17:18 ALEA NEGRON [facility]
--- OUTSIDE RECORDS SUMMARY | 2024-08-29 14:07 | XMS_ITS | Encounter Summary ---
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 ([place]) Organization Department of [facility] ([place]) Address [address] [place] [address] Care Team Providers Care Checker In Name Role Phone TIFFANIE DALE Primary Care [...] ION RX PLAN Oct 09, 2022 [id number] [phone] PEEIRISHROSETTEEW PATIENT [facility] [place] [employer] Oct 09, 2022 [id number] [phone] PEEIRISHADA PATIENT [facility] POINT OF SERVICE [place] [facility] [employer] Oct 09, 2022 [id number] [phone] PEEIRISH ADA PATIENT Selected Encounter This section includes the information on record at [place] for the Encounter. Date/Time Encounter Type Encounter Description Reason Provider Source Jan 24, 2024 02:00 PM OFFICE O/P EST MOD 30 MIN PRIMARY CARE/MEDICINE ICD-10-CM I10 Essential (primary) hypertension GUI DALE IHJay Encounter Template Text not used by [place] Assessments - Encounter Diagnoses This section includes the primary and secondary diagnoses documented for the Encounter. Date/Time Primary/Secondary Diagnosis Diagnosis Name Provider Source Jan 24, 2024 03:52 PM PRIMARY Essential (primary) hypertension [facility] Jan 24, 2024 03:52 PM SECONDARY Gastro-esophageal reflux disease without esophagitis [facility] Jan 24, 2024 03:52 PM SECONDARY Hypospadias, penile [facility] Plan of Treatment: Future Appointments (+ 6 months) and Future Tests (+/- 45 days) The Plan of Treatment section includes future care activities for the patient from all [facility] This section includes future appointments and future orders which are active, pending or scheduled. Future Appointments This section includes appointments that were scheduled to occur 6 months from the date of the Encounter, up to a maximum of 20 appointments. The data comes from all [place] treatment facilities. Appointment Date/Time Appointment Type Appointme nt Facility Name Jan 28, 2024 02:00 PM AMBULATORY - SURGERY [facility] Feb 17, 2024 08:00 AM [facility]ORY [facility] Feb 17, 2024 08:00 AM AMBULATORY - PSYCHIATRY [facility] Mar 20, 2024 08:00 AM AMBULATORY - PSYCHIATRY [facility] Mar 20, 2024 08:00 AM [facility] Mar 27, 2024 10:30 AM AMBULATORY - MEDICINE [facility] Apr 11, 2024 01:00 PM AMBULATORY - PSYCHIATRY [facility] Apr 17, 2024 11:00 AM AMBULATORY - PSYCHIATRY [facility] Apr 19, 2024 04:30 PM AMBULATORY - PSYCHIATRY [facility] Apr 19, 2024 04:30 PM AMB[facility]ORY [facility]IATRY [facility] May 01, 2024 11:00 AM AMBULATORY - PSYCHIATRY [facility] May 24, 2024 05:00 PM AMBULATORY - PSYCHIATRY [facility] May 24, 2024 05:00 PM AMB[facility]ORY [facility]RY [facility] May 25, 2024 10:00 AM AMBULATORY - PSYCHIATRY [facility] Jun 08, 2024 10:00 AM [facility] Jun 26, 2024 10:00 AM [facility] Jun 26, 2024 05:00 PM AMBULATORY - [facility]ATRY [facility] Jun 26, 2024 05:00 PM AMBULATORY - [facility]AT[facility] Jul 11, 2024 09:30 AM [facility] Jul 20, 2024 04:00 PM AMBULATORY - PSYCHIATRY [facility] Social History: Smoking Status (Most current) and Tobacco Use (All prior to encounter date) This section includes the most current, and the historical, smoking and tobacco- related health factors from the [place] facility where the Encounter took place. Current Smoking Status This section includes the most current smoking, or tobacco-related health factor, from the [place] facility where the Encounter took place. Date/Time Current Smoking Status Comment Gabe morely Oct 05, 2023 03:00 PM VA-TOBACCO FORMER USER [facility] Tobacco Use History This section includes a history of the smoking, or tobacco-related health factors, that were collected on or before the date of the Encounter. The data comes from the [place] facility where the Encounter took place. Date/Time Smoking Status/Tobacco Use Comment F acility Oct 05, 2023 03:00 PM VA-TOBACCO QUIT 5 TO < [address] [facility] Aug 12, 2022 01:30 PM VA-TOBACCO FORMER USER [facility] Aug 12, 2022 01:30 PM VA-TOBACCO QUIT 5 TO < [address] [facility] Oct 04, 2020 11:30 AM VA-TOBACCO FORMER USER [facility] Oct 04, 2020 11:30 AM VA-TOBACCO QUIT 5 TO < [address] 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 [facility] May 08, 2019 01:17 PM VA-TOBACCO USE MED NO [facility] May 08, 2019 01:17 PM VA-TOBACCO USER SOME DAYS [facility] Feb 18, 2018 09:18 AM VA-TOBACCO FORMER USER [facility] Feb 18, 2018 09:18 AM VA-TOBACCO QUIT < 1 YEAR [facility] September 23, 2017 02:13 PM QUIT TOBACCO >12 M O & <7 YRS AGO [facility] Jun 29, 2017 08:59 AM QUIT TOBACCO IN TH E LAST 12 MONTHS [facility] Jun 29, 2017 08:59 AM TOBACCO CESSATION REFERRAL DECLINED [facility] Jun 29, 2017 08:59 AM TOBACCO MEDS OFFER ED BUT DECLINED [facility] Jun 29, 2017 08:59 AM TOBACCO USER OFFERED MEDS [facility] Encounter Notes: All associated encounter notes This section contains the clinical notes associated to the Encounter. Date/Time Encounter Note(s) Provider Source Jan 24, 2024 02:00 PM TELEHEALTH NOTE: LOCAL TITLE: PRIMARY CARE VIDEO CONNECT [facility]UST STANDARD TITLE: TELEHEALTH NOTE DATE OF NOTE: JAN 24, 2024@14:00 ENTRY DATE: JAN 24, 2024@14:00:22 AUTHOR: TIFFANIE DALE EXP COSIGNER: URGENCY: STATUS: COMPLETED Medicine Provider Note Modality of Care: Clinical Video Telehealth Visit conducted by Clinical Video Telehealth. Patient/surrogate provided verbal consent for video telehealth. Patient location confirmed. Emergency number confirmed. Patient Contact Details: Best contact number for backup communication with patient: Patient Chief Complaint: Routine follow-up History of Present Illness: .Mr. Galo is 33 yrs. old male Today has C appointment for follow-up He has hypertension taking losartan 50 mg once a day GERDs on pantoprazole 40 mg a day as prescribed by outside provider NIDIA Robbins under Dr Weiss at [facility] He reports average blood pressure range between 120-130/70-80 He has lost his blood pressure kit not able to check blood pressure today Will issue new blood pressure kits He also wants his blood pressure medication and [facility] So far getting from outside pharmacy He has history of distal Hypospadias with distal Urethral stricture Previously had seen outside urology and had surgery done for Hypospadias by Dr Luc Sorensen in Urology at [facility] but it was not completely corrected per patient As well-seen urologist at [facility] Dr Monreal did Scope on him and told see Urethra Stricture and scar tissue as well some Bladder damage due to his ongoing distal Hypospadias with distal Urethral stricture and referred him .[facility]ive [facility] Dr Ng , per pt told him do not see seen any uretheral stricture and do not thing he need any surgical interventions So he was very frustrated and wanted to seek a third opinion at the [place] urologist which eventually saw them on December 31, 2023 see their note on the CPRS They are planning to do cystoscopy next week see their care plan He is still say on urination - urine come out as spray Denies any burning sensation or discomfort No other complaint Past Medical History: Problem List 1) Gastroesophageal reflux disease 2) Insomnia 3) Benign essential hypertension 4) Hand joint pain 5) Olecranon bursitis 6) Chronic back pain 7) Hypospadias, penile 8) Exposure to potentially hazardous substance 9) Attention deficit hyperactivity disorder, combined type Comment: Allergies/Adverse Drug Reactions: Patient has answered NKA Active and Medication List: Active and Recently Outpatient Medications (excluding Supplies): Active Outpatient Medications Status 1) ERGOCALCIF [...] BEDTIME TAKE ONE HOUR PRIOR TO BEDTIME. Inactive Outpatient Medications Status 1) METHYLPHENIDATE(EQV-CONCERT A)18MG SA TAB TAKE ONE TABLET BY MOUTH [...] MOUTH ACTIVE EVERY MORNING BEFORE A MEAL 7 Total Medications Medication Reconciliation Completed: Most Recent Vital Signs: Measurement DT TEMP PULSE RESP BP HT WT F(C) IN(CM) LB(KG)[BMI] ---- ----- ---- -- ------ 12/31/2023 09:35 97.5(36.4) 92 20 142/93 70.5(179) 214(96.9)[30*] 10/05/2023 15:04 97.9(36.6) 70 18 128/80 207(93.9)[30*] Measurement DT CVP POx CG CMH20(MMHG) (L/MIN)(%) IN(CM) ------ 12/31/2023 09:35 99 10/05/2023 15:04 97 Measurement DT Pain ---- 12/31/2023 09:35 0 10/05/2023 15:04 4 Physical Exam General: Well-appearing male sitting comfortably in front of camera Friendly and cooperative in no acute distress Labs CMP: SODIUM 140 mEq/L 12/03/2023 09:17 POTASSIUM 4.1 mEq/L 12/03/2023 09:17 CHLORIDE 103 mEq/L 12/03/2023 09:17 UREA NITROGEN 20.9 mg/dL 12/03/2023 09:17 CREATININE 1.20 mg/dL 12/03/2023 09:17 CALCIUM 9.8 mg/dL 12/03/2023 09:17 PROTEIN 7.4 g/dL 12/03/2023 09:17 ALBUMIN 4.5 g/dL 12/03/2023 09:17 ALKALINE PHOSPHATASE 72 U/L 12/03/2023 09:17 ALT/SGPT 30 U/L 12/03/2023 09:17 AST/SGOT 20 U/L 12/03/2023 09:17 TOTAL BILIRUBIN 0.9 mg/dL 12/03/2023 09:17 CARBON DIOXIDE 24 mEq/L [...] 09:17 BASOPHILS, ABSOLUTE 0.05 10*3/uL 12/03/2023 09:17 INR: No INR EO data found HgA1C: HGB A1C Collection DT Specimen Test Name Result Units Ref Range 12/03/2023 09:17 BLOOD HGA1C 5.4 % 4.0 - 6.0 08/06/2023 12:35 BLOOD HGA1C 5.2 % 4.0 - 6.0 Lipid Panel: TRIGLYCERIDE 73 mg/dL 08/06/2023 12:35 CHOLESTEROL 177 mg/dL 08/06/2023 12:35 HDL(New) 53 mg/dL 08/06/2023 12:35 CALCULATED LDL 109 mg/dL 08/06/2023 12:35 HIV: No HIV SCREENING EO data found Assessment/Plan: 1) hypertension stable Will refill losartan 50 mg a day from [place] per patient request report his PMD increase the dose from 25 to 50 mg a day blood pressure is better controlled Discussed need to avoid salt and salty food like cardio likely processed meat Exercise daily Will issue blood pressure kit to monitor blood pressure at home 2) GERDs on pantoprazole 40 mg a day Once pantoprazole ref[facility] Discussed avoid caffeinated beverages like soda coffee, chocolate, spearmint, mint spicy food Avoid sleeping after eating food for 2 to 3 hours Discussed GERD precaution 3)Hypospadias as above previously seen several outside [facility] Not have been evaluated by the [place] urologist see their note on the CPRS Will follow urologist on January 28, 2024 for possible cystoscopy for further treatment plan HTN Assess for Elevated BP>=140/90: Patient reported blood pressure Systolic BP 120 Diastolic BP 80 Additional comment Comment: Systolic blood pressure 120 mmHg,diastolic blood pressure 80 millimeters mercury The patient's blood pressure is usually adequately controlled. No medication changes are indicated at this time. The patient was counseled on the importance of regular exercise and/or physical activity in the control of blood pressure. The patient was instructed to try to participate in 120 minutes of aerobic exercise per week if possible and that any increase in physical activity may be useful in controlling blood pressure. The patient was counseled on the importance of diet and weight loss/ control in the regulation of blood pressure. The patient was counseled to reduce their weight to within 10 percent of their ideal body weight. The possible improvement in blood pressure control with even 5 to 10 pounds of weight loss was reviewed. The contribution of dietary sodium to elevated blood pressure was reviewed. The patient was counseled to have a goal sodium intake of 1500mg per day, with no more than 2300mg per day. The patient was counseled that a diet low in dietary saturated and trans fats is beneficial in lowering blood pressure. The patient was counseled that a diet rich in fresh fruits, vegetables and whole grains is beneficial in lowering blood pressure. The patient was counseled to limit alcohol intake to no more than 2 drinks per day for men and 1 drink per day for women. Follow-Up: [id number] July 23, 2024 /allan/ Tiffanie Dale MD Staff Physician Signed: 01/24/2024 15:52 Receipt Acknowledged By: 01/25/2024 10:45 /allan/ RAÚL VILLARREAL LEAD SURFACE GRINDER TIFFANIE DALE [facility] Jan 24, 2024 01:37 PM TELEHEALTH NOTE: LOCAL TITLE: PCS PACT MICHELLE VIDEO CONNECT ST STANDARD TITLE: TELEHEALTH NOTE DATE OF NOTE: JAN 24, 2024@13:37 ENTRY DATE: JAN 24, 2024@13:37:12 AUTHOR: SHAUNA BAL EXP COSIGNER: URGENCY: STATUS: COMPLETED Patient Identifiers : Full Name Date of Visit conducted by Clinical Video Telehealth. V15 [facility] Video Connect/Video to Home [facility] Video Connect (VVC)/Video to home template v1.5 Visit conducted by synchronous telehealth. Location/emergency number confirmed. Environment surveyed and all participants identified. Virtual conference room locked. VVC/Video to home appointment information: The following items were reviewed: - The nature of telehealth, its benefits, and risks. - Confidentiality and its limits. - The importance of having a confidential location for the service. - The emergency plan. - The appointment should be treated like an in person appointment (no smoking or driving during session, showing up fully dressed, etc.) *The Virtual Medical Room was locked for this encounter. *A survey of the environment was conducted and it is appropriate to conduct a VVC appointment. *Confirmed [place]'s Non-[place] location for this appointment: 's Home [address] [place] [id number] Address and phone number verified with [place]. Address: Phone: does not have an emergency contact. * was notified of right to decline Telehealth services and eligibility for other options. [place] consented to be seen via VVC. EMERGENCY PLAN In the event of an emergency, the [place] or family will call emergency services, if capable. The Teleprovider will remain in the virtual medical room until emergency response arrives and handoff to emergency services is complete. If is unable to make emergency call, the Teleprovider is to call the [facility] service at [phone] and ask to be connected to emergency services for the 's location. 's Crisis Line: Dial 988 then press 1, or text [phone] Office of Connected Care Helpdesk ([facility]): [phone] or [phone] Verified Provider's location and contact information for this appointment: [address] [address] x Provider Visit: Reason for Visit: Established Follow-Up: Allergy Review: Patient has answered NKA Allergy list reviewed and remains current. Recent Vital Signs: Temperature: 97.5 F [36.4 C] (12/31/2023 09:35) Pulse: 92 (12/31/2023 09:35) Respiration: 20 (12/31/2023 09:35) B/P: 142/93 (12/31/2023 09:35) Pain: 0 (12/31/2023 09:35) Wt: 213.7 lb [96.93 kg] (12/31/2023 09:35) Ht: 70.5 in [179.1 cm] (12/31/2023 09:35) BMI: 30.3 POX: 99% (12/31/2023 09:35) Blood sugar glucometer reading: N/A PERSONAL HEALTH INVENTORY Notes: No data available for PHI note titles PERSONAL HEALTH INVENTORY - MAP: Personal Health Inventory (Short) 07/28/2018 Phis What Do You Live For I LIVE TO SEE THE NEXT DAY. MY HEALTH MATTERS TO ME. I WOULD LIKE TO LIVE A LONG HEALTHY LIFE. WATCHING THE [employer] GAMES BRINGS FREDY AND HAPPINESS. Php 10/05/2023 Personal Health Plan [place], [place], Purpose (MAP) MY What matters most to you in your life right now? -- [place]'s Response: MY Would you like to discuss any personal problem, family problem, alcohol use, drug use, or a mental or emotional illness? Cate /es/ SHAUNA BAL LPN LICENSED PRACTICAL NURSE Signed: 01/24/2024 14:[address] [facility]
--- OUTSIDE RECORDS SUMMARY | 2024-08-29 14:07 | XMS_ITS | Encounter Summary ---
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 Date/Time Encounter Type Encounter Description Reason Pro vider Source Apr 19, 2024 04:30 PM Outpatient Encounter ADMIN PAT ACTIVTIES (MASNONCT) IHE Encounter Template Text not used by [facility] Plan of Treatment: Future Appointments (+ 6 months) and Future Tests (+/- 45 days) The Plan of Treatment section includes future care activities for the patient from all [place] [facility]. This section includes future appointments and future orders which are active, pending or scheduled. Future Appointments This section includes appointments that were scheduled to occur 6 months from the date of the Encounter, up to a maximum of 20 appointments. The data comes from all [place] treatment [facility]. Appointment Date/Time Appointment Type Appointme nt Facility Name May 01, 2024 11:00 AM AMBULATORY - PSYCHIATRY [facility] May 24, 2024 05:00 PM AMBULATORY - [facility]RY [facility] May 24, 2024 05:00 PM [facility] May 25, 2024 10:00 AM AM[facility]ORY - [facility]RY [facility] Jun 08, 2024 10:00 AM AMBULATORY - PSYCHIATRY [facility] Jun 26, 2024 10:00 AM AMBULATORY - PSYCHIATRY [facility] Jun 26, 2024 05:00 PM AMBULATORY - PS[facility]IATRY [facility] Jun 26, 2024 05:00 PM AMBULATORY [facility] Jul 11, 2024 09:30 AM AMBULATORY - PSYCHIATRY [facility] Jul 20, 2024 04:00 PM AMBULATORY - PS[facility]ATRY [facility] Jul 20, 2024 04:00 PM AMBULATORY - [facility] Jul 21, 2024 08:30 AM AMBULATORY - MEDICINE [facility] Jul 31, 2024 02:00 PM AMBULATORY - PSYCHIATRY [facility] Aug 14, 2024 01:00 PM AMBULATORY - PSYCHIATRY [facility] Aug 17, 2024 04:00 PM AMBULATORY - PS[facility]CHIATRY [facility] Aug 17, 2024 04:00 PM AM[facility]ULATORY - [facility] Aug 28, 2024 03:00 PM AMBULATORY - PSYCHIATRY [facility] September 18, 2024 03:00 PM AMBULATORY - PSYCHIATRY [facility] September 29, 2024 03:30 PM AMBULATORY - [facility] September 29, 2024 03:30 PM AMBULATORY - PS[facility]ATRY [facility] Encounter Notes: All associated encounter notes This section contains the clinical notes associated to the Encounter. Date/Time Encounter Note(s) Provider Source Apr 19, 2024 04:28 PM ACCOUNTING OF DISC LOSURES NOTE: LOCAL TITLE: STATE PRESCRIPTION DRUG MONITORING PROGRAM STANDARD TITLE: ACCOUNTING OF DISCLOSURES NOTE DATE OF NOTE: APR 19, 2024@16:28:21 ENTRY DATE: APR 19, 2024@16:28:21 AUTHOR: JONO NEGRON EXP COSIGNER: URGENCY: STATUS: COMPLETED This PDMP query was submitted by Jono Negron. The clinical justification for this PDMP query is to review controlled substances prescribed outside of the [place], and any additional information that may become available, as an important component of standard clinical care, and in accordance with [facility] policy. Patient information was shared with the PDMP [place]. No prescription(s) for controlled substances outside the [facility] were found in the last 90 days. /allan/ JONO NEGRON Psychiatrist V15 Signed: 04/19/2024 16:28 JONO NEGRON [facility] Apr 19, 2024 04:18 PM PSYCHIATRY NOTE: LOCAL TITLE: PSYCHIATRY [facility] STANDARD TITLE: PSYCHIATRY NOTE DATE OF NOTE: APR 19, 2024@16:18 ENTRY DATE: APR 19, 2024@16:18:14 AUTHOR: JONO NEGRON EXP COSIGNER: URGENCY: STATUS: COMPLETED Encounter was conducted via Telehealth Modality with patient located at home via [facility]. Verbal informed consent was obtained from the [place] at the time of the encounter. Video room locked at time of appointment. Two patient identifiers were utilized for patient identification. address: [address] [place] [address] phone: Primary NOK: PEETRICIAJORGESHYAM Relation: UNRELATED FRIEND/ <street address not available> Length of services provided: 30 minutes (20 video, 10 chart review and documentation) Chief complaint: f/u MH med management with diagnoses ADHD, combined type GLORIA with panic attacks r/o mood disorder Subjective- Today, the patient reports: At last appointment continued mirtazapine 30mg QHS for mood, anxiety, sleep. Some increased appetite- monitor. Continued Concerta 18mg QAM for ADHD. Stopped clonidine due to ED. Started hydroxyzine 10-20mg TID prn for anxiety symptoms. Reports he went to the ER a week after out last appointment for panic symptoms. His BP was elevated like 190/110 it got to 200/130 and my heart rate was like 140-160. Had bloodwork that was normal and his BP normalized over time. His potassium was a little low but otherwise everything was normal. Feels he has had some form of a panic attack almost daily. Not severe enough to go to the ED. Feels too afraid to do physical activities. Has not been taking Concerta for 3 weeks I'm too afraid to take that, I can feel it gives a little stimulation which freaks me out. Confirms working with Psychology and is hopeful this will be helpful. I'm trying to prove to myself I'm not actually dying and do little things like work out. Only working out at work, too anxious to go to gym. Has been taking hydroxyzine 1-2 ties a day, not sure how much helping. Has been taking mirtazapine as prescribed. Discussed use of benzodiazepines for severe panic. Thinks in past he may have taken valium once for throwing his back out. He is amenable to trial of clonazepam only for severe panic. 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 2) LOSARTAN 100MG TAB TAKE ONE-HALF TABLET BY MOUTH ONCE ACTIVE A DAY FOR HIGH BLOOD PRESSURE 3) MIRTAZAPINE 30MG TAB TAKE ONE TABLET BY MOUTH AT ACTIVE BEDTIME TAKE ONE HOUR PRIOR TO BEDTIME. 4) PANTOPRAZOLE NA 40MG EC TAB TAKE ONE TABLET BY MOUTH ACTIVE EVERY MORNING BEFORE A MEAL FOR GASTROESOPHAGEAL REFLUX DISEASE TAKE 30 MINUTES BEFORE MEAL(S) Inactive Outpatient Medications Status 1) METHYLPHENIDATE 18MG SA TAB TAKE ONE TABLET BY MOUTH EVERY MORNING FOR ADHD *SWALLOW WHOLE, DO NOT CRUSH, [...] 12:35 TSH: TSH 1.054 uIU/mL 12/03/2023 09:18 Basye: ____ Depakote: ____ Carbamazepine: No CARBAMAZEPINE EO [...] Well groomed, good eye contact via video, Mood: okay Affect: slightly restricted but appropriately reactive, anxious Gait: patient was seated Memory: sufficient to [...] modify as needed every 12 months -Progress: continued panic concerns, will add prn clonazepam for severe symptoms --Medications: Continue: Mirtazapine 30mg QHS for mood, anxiety, sleep. Some increased appetite and morning hangover, he will try taking earlier and if needed half dose. Hold for now Concerta 18mg QAM for ADHD. Denies SEs. UDS due 12/25, agree that holding while dealing with acute anxiety is a good idea, states he has cardiology eval scheduled next year. Can hydroxyzine 10-20mg TID prn for anxiety symptoms. No Ses Start clonazepam 0.25mg PO BID prn for severe anxiety only. He will take only if feels he would otherwise be going to ED. Discussed habit forming potential and r/b/a and potential SEs. The patient indicated an informed decision to take medications as described above. The was informed that if any new side effects or problems arise, the Clinic should be contacted, or can come in for re- evaluation of medication. --Therapy: as directed --labs/rads/consults: no new today --Return to clinic: f/u 4-6w, sooner prn The agrees to contact the clinic sooner for any new or worsening symptoms. --Discussed plan as written above with [place] who verbalized understanding and agreement with plan. Detailed safety plan was discussed with the patient. - would ask for help if needed -All ways to access care discussed with patient including how and when to call the mental health clinic, 24 hour emergency room services, [facility] (508 and press 1 or Text [phone]) and 911. Patient voiced understanding and agreed to utilize these services when needed. /allan/ JONO NEGRON Psychiatrist V15 Signed: 04/19/2024 16:57 JONO NEGRON [facility]
--- OUTSIDE RECORDS SUMMARY | 2024-08-29 14:07 | XMS_ITS | Continuity of Care Document ---
Author Name [facility] Organization [facility] Care Team Providers Care Roller Inspector And Mender Name Role Phone [facility] Unavailable Unavailable Problems Combined list of problems from Department of Defense and Veterans Affairs facilities. It does not include entries that were removed or entered in error. Problem Status Onset Date Problem Type Date of Resolution Comments Source visit for: ears / hearing exam Active Condition DoD visit for: screening exam neurological disorders traumatic brain injury Inactive Condition DoD Need For Vaccination Yellow Fever Inactive Condition DoD Need For Vaccination Chickenpox (Active) Inactive Condition DoD Need For Prophylactic Antibiotics Inactive Condition [facility] BACK STRAIN THORACIC Inactive Condition [facility] UPPER RESPIRATORY INFECTION Inactive Condition DoD Need For Vaccination Poliomyelitis Inactive Condition [facility] ANKLE SPRAIN Inactive Condition [facility] CELLULITIS OF THE ANKLE Inactive Condition [facility] SINUSITIS ACUTE Inactive Condition [facility] ASTIGMATISM - REGULAR Active Condition [facility] REFRACTIVE ERROR - MYOPIA Active Condition DoD visit for: services physical Active Condition [facility] Intervention And Counseling On Cessation Of Tobacco Use Active Condition DoD visit for: services physical accession Active Condition [facility] Immunology Studies Raised Antibody Titer Active Condition [facility] Blood Typing Inactive Condition DoD Need For Vaccination Hepatitis A And Hepatitis B Inactive Condition DoD Need For Vaccination Pneumococcal Inactive Condition [facility] Vaccines Prophylactic Need Against Viral Diseases Inactive Condition DoD visit for: screening exam pulmonary tuberculosis Inactive Condition [facility] Attention deficit hyperactivity disorder, combined type Active Condition [facility] Benign essential hypertension Active Condition [facility] Chronic back pain Active Condition [facility] Exposure to potentially hazardous substance Active Condition [facility] Gastroesophageal reflux disease Active Condition [facility] Generalized anxiety disorder Active Condition [facility] Hand joint pain Active Condition [facility] Hypospadias, penile Active Condition [facility] Insomnia Active Condition [facility] Olecranon bursitis Active Condition [facility] Panic Active Condition [facility] Diagnosis: ICD-10-CM F41.0 Panic disorder [episodic paroxysmal anxiety] Active Diagnosis [facility] Diagnosis: ICD-10-CM F41.1 Generalized anxiety disorder Active Diagnosis [facility] Diagnosis: ICD-10-CM I47.11 Inappropriate sinus tachycardia, so stated Active Diagnosis [facility] Diagnosis: ICD-10-CM G47.33 Obstructive sleep apnea (adult) (pediatric) Active Diagnosis [facility] Diagnosis: ICD-10-CM Z02.9 Encounter for administrative examinations, unspecified Active Diagnosis [facility] Diagnosis: ICD-10-CM I10 Essential (primary) hypertension Active Diagnosis [facility] Diagnosis: ICD-10-CM Z71.9 Counseling, unspecified Active Diagnosis [facility] Diagnosis: ICD-10-CM 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 Active Diagnosis [facility] Diagnosis: ICD-10-CM F43.20 Adjustment disorder, unspecified Active Diagnosis [facility] Diagnosis: ICD-10-CM F41.8 Other specified anxiety disorders Active Diagnosis [facility] Diagnosis: ICD-10-CM Q54.1 Hypospadias, penile Active Diagnosis [facility] Medications Combined list of outpatient medications from Department of Defense and Veterans Affairs facilities.Medications provided include 1) outpatient medications from the last 15 months, and 2) patient-reported medications. Medication Details Route Status Patient Instructions Prescription Expires Prescription Number Last Dispense Date Ordering Provider Order Date Order Qty Source CHOLECALCIF WILLIE 50MCG (2,000UNIT) TAB TAKE TWO TABLETS BY MOUTH ONCE A DAY FOR VITAMIN D DEFICIEN CY ORAL 12/04/2023 [id number] SUMIT DALE AMMAD T 2023 200 [facility] CLONAZEPAM 0.5MG TAB TAKE ONE-HALF TABLET BY MOUTH ONCE A DAY NEEDED FOR ANXIETY MAY CAUSE DROWSINE SS. DO NOT DRINK ALCOHOL. ORAL ACTIVE 11/24/2024 [id number] 5 SULY NEGRON 2024 15 [facility] CLONAZEPAM 0.5MG TAB TAKE ONE-HALF TABLET BY MOUTH TWICE DAILY NEEDED FOR PANIC SYMPTOMS MAY CAUSE DROWSINE SS. DO NOT DRINK ALCOHOL. ORAL 05/19/2024 [id number] 4 SULY NEGRON N 2023 30 [facility] Fazal CLONIDINE HCL 0.1MG TAB TAKE ONE TABLET BY MOUTH TWICE DAILY NEEDED FOR ANXIETY ORAL DISCONT INUED BY PROVIDE R 02/17/2025 [id number] 4 SULY NEGRON N 2023 120 [facility] ERGOCALCIFE ROL 1,250MCG (50,000UNIT ) CAP TAKE ONE CAPSULE BY MOUTH EVERY WEEK FOR VITAMIN D DEFICIEN CY ORAL 02/10/2024 [id number] 4 SUMIT DALE T 2023 8 [facility] HYDROXYZINE HCL 10MG TAB TAKE ONE TABLET BY MOUTH THREE TIMES A DAY NEEDED FOR ANXIETY *MAY CAUSE DROWSINE SS* IF ANXIETY PERSISTS , MAY INCREASE TO TWO TABLETS BY MOUTH THREE TIMES A DAY NEEDED. ORAL DISCONT INUED BY PROVIDE R 03/21/2025 [id number] 5 SULY NEGRON N 2023 180 [facility] [place] POTASSIUM 100MG TAB TAKE ONE-HALF TABLET BY MOUTH ONCE A DAY FOR HIGH BLOOD PRESSURE ORAL SUSPEND ED 01/24/2025 [id number] 5 SUMIT DALE T 2024 45 [facility] [place] POTASSIUM 100MG TAB TAKE ONE-HALF TABLET BY MOUTH ONCE A DAY FOR HIGH BLOOD PRESSURE ORAL DISCONT INUED 01/24/2025 [id number] 5 SUMIT ADLE T 2023 30 [facility] METHYLPHENI DATE HCL (EQV-CONCER TA) 18MG TAB,SA TAKE ONE TABLET BY MOUTH EVERY MORNING FOR ADHD *SWALLOW WHOLE, DO NOT CRUSH, SPLIT, OR CHEW. ORAL 04/15/2024 [id number] 4 SULY NEGRON N 2023 30 [facility] METHYLPHENI DATE HCL (EQV-CONCER TA) 18MG TAB,SA TAKE ONE TABLET BY MOUTH ONCE A DAY FOR ADHD *SWALLOW WHOLE, DO NOT CRUSH, SPLIT, OR CHEW. ORAL 03/10/2024 [id number] 4 ANGLE PERSAUD HER CHANCE 2023 30 [facility] METHYLPHENI DATE HCL (EQV-CONCER TA) 18MG TAB,SA TAKE ONE TABLET BY MOUTH ONCE A DAY FOR ADHD *SWALLOW WHOLE, DO NOT CRUSH, SPLIT, OR CHEW. ORAL 02/04/2024 [id number] 4 ANGLE PERSAUD HER CHANCE 2023 30 [facility] METHYLPHENI DATE HCL (EQV-CONCER TA) 18MG TAB,SA TAKE ONE TABLET BY MOUTH ONCE A DAY FOR ADHD *SWALLOW WHOLE, DO NOT CRUSH, SPLIT, OR CHEW. ORAL 01/02/2024 [id number] 4 ADA LAZCANO 2023 30 [facility] MIRTAZAPINE 30MG TAB TAKE ONE TABLET BY MOUTH AT BEDTIME ANXIETY/ SLEEP/MO OD TAKE ONE HOUR PRIOR TO BEDTIME. ORAL ACTIVE 04/20/2025 [id number] 4 SULY NEGRON 2023 90 [facility] MIRTAZAPINE 30MG TAB TAKE ONE TABLET BY MOUTH AT BEDTIME TAKE ONE HOUR PRIOR TO BEDTIME. ORAL DISCONT INUED (EDIT) 01/05/2025 [id number] 4 ADA LAZCANO 2023 30 [facility] MIRTAZAPINE 30MG TAB TAKE ONE-HALF TABLET BY MOUTH AT BEDTIME FOR 7 DAYS, THEN TAKE ONE TABLET AT BEDTIME FOR 30 DAYS TAKE ONE HOUR PRIOR TO BEDTIME. ORAL DISCONT INUED 12/03/2024 [id number] 4 ADA LAZCANO 2023 34 [facility] MIRTAZAPINE 30MG TAB TAKE ONE TABLET BY MOUTH AT BEDTIME FOR 30 DAYS TAKE ONE HOUR PRIOR TO BEDTIME. ORAL DISCONT INUED (EDIT) 12/03/2024 [id number] 4 NENOADA Benedict 2023 30 [facility] NADOLOL 20MG TAB TAKE ONE TABLET BY MOUTH ONCE A DAY ORAL ACTIVE CHITO,SUMIT AMMAD T 2024 [facility] NAPROXEN 500MG TAB TAKE ONE TABLET BY MOUTH TWICE A DAY NEEDED ORAL ACTIVE CHITO,MOH AMMAD T 2019 [facility] PANTOPRAZOL E NA 40MG TAB,EC TAKE ONE TABLET BY MOUTH EVERY MORNING BEFORE A MEAL FOR GASTROES OPHAGEAL REFLUX DISEASE TAKE 30 MINUTES BEFORE MEAL(S) ORAL ACTIVE 01/24/2025 [id number] 5 [facility] T 2023 90 [facility] Allergies, Adverse Reactions, Alerts Combined list of allergies from Department of Defense and Veterans Affairs facilities. It does not include entries that were removed or entered in error. Substance Category Reaction Severity Reaction type Status Date Reported Comments Source No Known Allergies Drug allergy (disorder) active 09/18/2010 [facility] Immunizations Combined list of available immunizations from the Department of Defense and Veterans Affairs facilities. Immunization Series Date Given Administered By Site Reaction Lot Number CVX Code Drug Intensive Care Unit Registered Nurse Status Comments Source INFLUENZA, UNSPECIFIED FORMULATION 2019 88 complet [facility] INFLUENZA, INJECTABLE, QUADRIVALENT, PRESERVATIVE FREE 2019 150 complet ed [facility] INFLUENZA, INJECTABLE, QUADRIVALENT, PRESERVATIVE FREE 2017 150 complet [facility] influenza nasal, unspecified formulation 0 2014 [id number] [employer] (MED) complet ed influenza nasal, unspecifi ed formulati on DoD influenza, injectable, quadrivalent, contains preservative 0 2013 [id number] [employer] (SKB) complet ed influenza , injectabl e, quadrival ent, contains preservat [place] DoD typhoid Vi capsular polysaccharid e vaccine 2 2013 UNK 101 Unknown (UNK) comple t ed typhoid Vi capsular polysacch aride vaccine DoD meningococcal polysaccharid e (groups A, C, Y and W-135) diphtheria toxoid conjugate vaccine (MCV4P) 0 2013 UNK 114 Unknown (UNK) comple t ed meningoco ccal polysacch aride (groups A, C, Y and W-135) diphtheri a toxoid conjugate vaccine (MCV4P) DoD influenza nasal, unspecified formulation 0 2012 [id number] 151 [employer] (MED) complet ed influenza nasal, unspecifi ed formulati on DoD Influenza, seasonal, injectable 0 2011 [id number] 141 Sanofi Pasteur (PMC) complet ed Influenza , seasonal, injectabl e DoD anthrax vaccine 2 2011 [id number] 24 (EBS) complet ed anthrax vaccine DoD anthrax vaccine 1 2011 FAV-[id number] 24 (EBS) complet ed anthrax vaccine DoD vaccinia (smallpox) vaccine 0 2011 [id number] 3-[id number] 75 (LONI) complet ed vaccinia (smallpox ) vaccine DoD typhoid Vi capsular polysaccharid e vaccine 1 2011 G1124 101 Rae (WAL) complet ed typhoid Vi capsular polysacch aride vaccine DoD hepatitis A and hepatitis B vaccine 3 2011 G1124 104 [employer] (SKB) complet ed hepatitis A and hepatitis B vaccine DoD measles, mumps and rubella virus vaccine 0 2011 [id number] 03 Merck (MSD) complet ed measles, mumps and rubella virus vaccine DoD hepatitis A and hepatitis B vaccine 3 2011 [id number] 7AA 104 [employer] (SKB) complet ed hepatitis A and hepatitis B vaccine DoD Influenza, seasonal, injectable 0 2010 [id number] 141 Sanofi Pasteur (PMC) complet ed Influenza , seasonal, injectabl e DoD yellow fever vaccine 0 2010 [id number] 37 Sanofi Pasteur (PMC) complet ed yellow fever vaccine DoD yellow fever vaccine 0 2010 [id number] 37 Sanofi Pasteur (PMC) complet ed yellow fever vaccine DoD varicella virus vaccine 2 2010 [id number] 21 Merck (MSD) complet ed varicella virus vaccine DoD varicella virus vaccine 1 2010 [id number] 21 Merck (MSD) complet ed varicella virus vaccine DoD hepatitis A and hepatitis B vaccine 1 2010 [id number] 1AA 104 [employer] (SKB) complet ed hepatitis A and hepatitis B vaccine DoD hepatitis A and hepatitis B vaccine 1 2010 [id number] 1AA 104 [employer] (SKB) complet ed hepatitis A and hepatitis B vaccine DoD tetanus toxoid, reduced diphtheria toxoid, and acellular pertu is vaccine, adsorbed 0 2010 [id number] 115 Sanofi Pasteur (PMC) complet ed tetanus toxoid, reduced diphtheri a toxoid, and acellular pertussis vaccine, adsorbed DoD Results Combined list of recent chemistry, hematology and other laboratory results from Department of Defense and Veterans Affairs, ranging from 15 months to all on record, depending upon the facility. Order Name Results Value Reference Range Date Interpretation Specimen Comments Source URINALYSI S (STL-PB) COLOR OF URINE Light- Yellow 12/02 Specimen Type: URINE No comment entered. Ordering Provider: MORENO DALE Report Released Date/Time: Oct 05, 2023 03:28 PM Reporting Lab: [facility] [place] [address] Performing Lab: [facility] URINALYSI S (STL-PB) BILIRUBIN.T OTAL [PRESENCE] IN URINE BY TEST STRIP Negati vemg/d L 12/02 Specimen Type: URINE No comment entered. Ordering Provider: MORENO DALE Report Released Date/Time: Oct 05, 2023 03:28 PM Reporting Lab: [facility] [place] [address] Performing Lab: [facility] URINALYSI S (STL-PB) PH OF URINE BY TEST STRIP 6.5 5.0 - 8.0 12/02 Specimen Type: URINE No comment entered. Ordering Provider: MORENO DALE Report Released Date/Time: Oct 05, 2023 03:28 PM Reporting Lab: [facility] [place] [phone] Performing Lab: [facility] URINALYSI S (STL-PB) APPEARANCE OF URINE Clear 12/02 Specimen Type: URINE No comment entered. Ordering Provider: MORENO DALE Report Released Date/Time: Oct 05, 2023 03:28 PM Reporting Lab: [facility] [place] [phone] Performing Lab: [facility] URINALYSI S (STL-PB) NITRITE [PRESENCE] IN URINE BY TEST STRIP Negati vemg/d L 12/02 Specimen Type: URINE No comment entered. Ordering Provider: MORENO DALE Report Released Date/Time: Oct 05, 2023 03:28 PM Reporting Lab: [facility] [place] [phone] Performing Lab: [facility] URINALYSI S (STL-PB) GLUCOSE [MASS/VOLUM E] IN URINE BY TEST STRIP Normal mg/dL 12/02 Specimen Type: URINE No comment entered. Ordering Provider: MORENO DALE Report Released Date/Time: Oct 05, 2023 03:28 PM Reporting Lab: [facility] [place] [phone] Performing Lab: [facility] URINALYSI S (STL-PB) PROTEIN [MASS/VOLUM E] IN URINE BY TEST STRIP Negati vemg/d L - 20 12/02 Specimen Type: URINE No comment entered. Ordering Provider: MORENO DALE Report Released Date/Time: Oct 05, 2023 03:28 PM Reporting Lab: [facility] [phone] Performing Lab: [facility] [place] [phone] URINALYSI S (STL-PB) URN.UROBILI NOGEN Normal mg/dL 12/02 Specimen Type: URINE No comment entered. Ordering Provider: MORENO DALE Report Released Date/Time: Oct 05, 2023 03:28 PM Reporting Lab: [facility] [place] [phone] Performing Lab: [facility] [place] [phone] URINALYSI S (STL-PB) HEMOGLOBIN [MASS/VOLUM E] IN URINE BY TEST STRIP Negati vemg/d L 12/02 Specimen Type: URINE No comment entered. Ordering Provider: MORENO DALE Report Released Date/Time: Oct 05, 2023 03:28 PM Reporting Lab: [facility] [place] [phone] Performing Lab: [facility] [phone] [place] [address] URINALYSI S (STL-PB) KETONES [MASS/VOLUM E] IN URINE BY TEST STRIP Negati vemg/d L 12/02 Specimen Type: URINE No comment entered. Ordering Provider: MORENO DALE Report Released Date/Time: Oct 05, 2023 03:28 PM Reporting Lab: [facility] [place] [phone] Performing Lab: [facility] [place] [phone] [place] [address] URINALYSI S (STL-PB) URN.LEUK.ES T. Negati vemg/d L 12/02 Specimen Type: URINE No comment entered. Ordering Provider: MORENO DALE Report Released Date/Time: Oct 05, 2023 03:28 PM Reporting Lab: [facility] [place] [address] Performing Lab: [facility] URINALYSI S (STL-PB) SPECIFIC GRAVITY OF URINE 1.025 1.005 - 1.029 12/02 Specimen Type: URINE No comment entered. Ordering Provider: MORENO DALE Report Released Date/Time: Oct 05, 2023 03:28 PM Reporting Lab: [facility] [place] [address] Performing Lab: [facility] DRUGS OF ABUSE (NEW) (STL) ETHANOL [MASS/VOLUM E] IN URINE Negati vemg/d L 0 - 20 12/02 Specimen Type: URINE No comment entered. Ordering Provider: ALTAGRACIA LAZCANO TTTIMOTEOW R Report Released Date/Time: Dec 03, 2023 09:06 AM Reporting Lab: [facility] [place] [address] Performing Lab: [facility] [facility] DRUGS OF ABUSE (NEW) (STL) AMPHETAMINE [PRESENCE] IN URINE BY SCREEN METHOD Negati veng/m L 12/02 Specimen Type: URINE No comment entered. Ordering Provider: ALTAGRACIA LAZCANO TTTIMOTEOW R Report Released Date/Time: Dec 03, 2023 09:06 AM Reporting Lab: [facility] [place] [address] Performing Lab: [facility] DIVISION DRUGS OF ABUSE (NEW) (STL) BENZOYLECGO NINE [PRESENCE] IN URINE Negati veng/m L 12/02 Specimen Type: URINE No comment entered. Ordering Provider: ALTAGRACIA LAZCANO R Report Released Date/Time: Dec 03, 2023 09:06 AM Reporting Lab: [facility] [place] [address] Performing Lab: [facility] [facility] DRUGS OF ABUSE (NEW) (STL) CANNABINOID S [PRESENCE] IN URINE BY SCREEN METHOD Negati veng/m L 12/02 Specimen Type: URINE No comment entered. Ordering Provider: ALTAGRACIA LAZCANO R Report Released Date/Time: Dec 03, 2023 09:06 AM Reporting Lab: [facility] [place] [address] Performing Lab: [facility] DIVISION DRUGS OF ABUSE (NEW) (STL) OPIATES [PRESENCE] IN URINE BY SCREEN METHOD Negati veng/m L 12/02 Specimen Type: URINE No comment entered. Ordering Provider: ALTAGRACIA LAZCANO R Report Released Date/Time: Dec 03, 2023 09:06 AM Reporting Lab: [facility] [place] [address] Performing Lab: [facility] DRUGS OF ABUSE (NEW) (STL) CREATININE [MASS/VOLUM E] IN URINE 145.9 mg/dL 63.0 - 166.0 12/02 Specimen Type: URINE No comment entered. Ordering Provider: ALTAGRACIA LAZCANO R Report Released Date/Time: Dec 03, 2023 09:06 AM Reporting Lab: [facility] [place] [address] Performing Lab: [facility] DIVISION TSH (MA-PB) THYROTROPIN [UNITS/VOLU ME] IN SERUM OR PLASMA 1.054 u[IU]/ mL 0.470 - 5.000 12/02 Specimen Type: SERUM No comment entered. Ordering Provider: ALTAGRACIA LAZCANO R Report Released Date/Time: Dec 03, 2023 09:06 AM Reporting Lab: [facility] [place] [address] Performing Lab: [facility] DIVISION TOTAL T3 (STL) TRIIODOTHYR ONINE (T3) [MASS/VOLUM E] IN SERUM OR PLASMA 103.33 ng/dL 58.00 - 159.00 12/02 Specimen Type: PLASMA No comment entered. Ordering Provider: ALTAGRACIA LAZCANO R Report Released Date/Time: Dec 03, 2023 09:06 AM Reporting Lab: [facility] [place] [address] Performing Lab: [facility] DIVISION FREE T4 (MA-PB) THYROXINE (T4) FREE [MASS/VOLUM E] IN SERUM OR PLASMA 1.13 ng/mL 0.70 - 1.48 12/02 Specimen Type: SERUM No comment entered. Ordering Provider: ALTAGRACIA LAZCANO R Report Released Date/Time: Dec 03, 2023 09:06 AM Reporting Lab: [facility] [place] [address] Performing Lab: [facility] DIVISION PROST. SPECIFIC AG.(PB-ST L) PROSTATE SPECIFIC AG [MASS/VOLUM E] IN SERUM OR PLASMA 0.456 ng/mL 0.000 - 4.000 12/02 Specimen Type: SERUM Comment: The listed sex of this patient may not be a typical indication for this test. Therefore, reference ranges or interpretiv e criteria listed may not be valid. Clinical correlation suggested. Ordering Provider: MORENO DALE Report Released Date/Time: Oct 05, 2023 03:28 PM Reporting Lab: [facility] [place] [address] Performing Lab: [facility] HGA1C HEMOGLOBIN A1C/HEMOGLO BIN.TOTAL IN BLOOD 5.4 4.0 - 6.0 12/02 Specimen Type: BLOOD No comment entered. Ordering Provider: MORENO DALE Report Released Date/Time: Oct 05, 2023 03:28 PM Reporting Lab: [facility] [place] [address] Performing Lab: [facility] COMPREHEN SIVE METABOLIC PANEL CREATININE [MASS/VOLUM E] IN SERUM OR PLASMA 1.20 mg/dL 0.70 - 1.30 12/02 Specimen Type: PLASMA Comment: No hemolysis noted. Ordering Provider: MORENO DALE Report Released Date/Time: Oct 05, 2023 03:28 PM Reporting Lab: [facility] [place] [address] Performing Lab: [facility] COMPREHEN SIVE METABOLIC PANEL UREA NITROGEN [MASS/VOLUM E] IN SERUM OR PLASMA 20.9 mg/dL 9.0 - 25.0 12/02 Specimen Type: PLASMA Comment: No hemolysis noted. Ordering Provider: MORENO DALE Report Released Date/Time: Oct 05, 2023 03:28 PM Reporting Lab: [facility] [place] [address] Performing Lab: [facility] [place] [id number] [place] [address] COMPREHEN SIVE METABOLIC PANEL GLUCOSE [MASS/VOLUM E] IN SERUM OR PLASMA 103 mg/dL 72 - 99 12/02 H Specimen Type: PLASMA Comment: No hemolysis noted. Ordering Provider: MORENO DALE Report Released Date/Time: Oct 05, 2023 03:28 PM Reporting Lab: [facility] [phone] Performing Lab: [facility] [phone] COMPREHEN SIVE METABOLIC PANEL SODIUM [MOLES/VOLU ME] IN SERUM OR PLASMA 140 meq/L 136 - 145 12/02 Specimen Type: PLASMA Comment: No hemolysis noted. Ordering Provider: MROENO DALE Report Released Date/Time: Oct 05, 2023 03:28 PM Reporting Lab: [facility] [phone] Performing Lab: [facility] [phone] COMPREHEN SIVE METABOLIC PANEL POTASSIUM [MOLES/VOLU ME] IN SERUM OR PLASMA 4.1 meq/L 3.5 - 5.0 12/02 Specimen Type: PLASMA Comment: No hemolysis noted. Ordering Provider: MORENO DALE Report Released Date/Time: Oct 05, 2023 03:28 PM Reporting Lab: [facility] [phone] Performing Lab: [facility] [phone] COMPREHEN SIVE METABOLIC PANEL CHLORIDE [MOLES/VOLU ME] IN SERUM OR PLASMA 103 meq/L 98 - 107 12/02 Specimen Type: PLASMA Comment: No hemolysis noted. Ordering Provider: MORENO DALE Report Released Date/Time: Oct 05, 2023 03:28 PM Reporting Lab: [facility] [address] Performing Lab: [facility] [phone] COMPREHEN SIVE METABOLIC PANEL CARBON DIOXIDE, TOTAL [MOLES/VOLU ME] IN SERUM OR PLASMA 24 meq/L 22 - 31 12/02 Specimen Type: PLASMA Comment: No hemolysis noted. Ordering Provider: MORENO DALE Report Released Date/Time: Oct 05, 2023 03:28 PM Reporting Lab: [facility] [place] [address] Performing Lab: [facility] COMPREHEN SIVE METABOLIC PANEL CALCIUM [MASS/VOLUM E] IN SERUM OR PLASMA 9.8 mg/dL 8.4 - 10.4 12/02 Specimen Type: PLASMA Comment: No hemolysis noted. Ordering Provider: MORENO DALE Report Released Date/Time: Oct 05, 2023 03:28 PM Reporting Lab: [facility] [place] [phone] Performing Lab: [facility] [place] [phone] COMPREHEN SIVE METABOLIC PANEL PROTEIN [MASS/VOLUM E] IN SERUM OR PLASMA 7.4 g/dL 6.0 - 8.6 12/02 Specimen Type: PLASMA Comment: No hemolysis noted. Ordering Provider: MORENO DALE Report Released Date/Time: Oct 05, 2023 03:28 PM Reporting Lab: [facility] [place] [phone] Performing Lab: [facility] COMPREHEN SIVE METABOLIC PANEL ALBUMIN [MASS/VOLUM E] IN SERUM OR PLASMA 4.5 g/dL 3.4 - 5.0 12/02 Specimen Type: PLASMA Comment: No hemolysis noted. Ordering Provider: MORENO DALE Report Released Date/Time: Oct 05, 2023 03:28 PM Reporting Lab: [facility] [place] [address] Performing Lab: [facility] COMPREHEN SIVE METABOLIC PANEL BILIRUBIN.T OTAL [MASS/VOLUM E] IN SERUM OR PLASMA 0.9 mg/dL 0.2 - 1.2 12/02 Specimen Type: PLASMA Comment: No hemolysis noted. Ordering Provider: MORENO DALE Report Released Date/Time: Oct 05, 2023 03:28 PM Reporting Lab: [facility] [place] [address] Performing Lab: [facility] COMPREHEN SIVE METABOLIC PANEL ALKALINE PHOSPHATASE [ENZYMATIC ACTIVITY/VO LUME] IN SERUM OR PLASMA 72 U/L 40 - 150 12/02 Specimen Type: PLASMA Comment: No hemolysis noted. Ordering Provider: MORENO DALE Report Released Date/Time: Oct 05, 2023 03:28 PM Reporting Lab: [facility] [place] [address] Performing Lab: [facility] COMPREHEN SIVE METABOLIC PANEL ASPARTATE AMINOTRANSF ERASE [ENZYMATIC ACTIVITY/VO LUME] IN SERUM OR PLASMA 20 U/L 5 - 34 12/02 Specimen Type: PLASMA Comment: No hemolysis noted. Ordering Provider: MORENO DALE Report Released Date/Time: Oct 05, 2023 03:28 PM Reporting Lab: [facility] [place] [address] Performing Lab: [facility] [place] [phone] COMPREHEN SIVE METABOLIC PANEL ALANINE AMINOTRANSF ERASE [ENZYMATIC ACTIVITY/VO LUME] IN SERUM OR PLASMA 30 U/L 8 - 40 12/02 Specimen Type: PLASMA Comment: No hemolysis noted. Ordering Provider: MORENO DALE Report Released Date/Time: Oct 05, 2023 03:28 PM Reporting Lab: [facility] [place] [address] Performing Lab: [facility] COMPREHEN SIVE METABOLIC PANEL GLOMERULAR FILTRATION RATE/1.73 SQ M.PREDICTED [VOLUME RATE/AREA] IN SERUM, PLASMA OR BLOOD BY CREATININE- BASED FORMULA (CKD-EPI 2020) 81.89 60 12/02 Specimen Type: PLASMA Comment: No hemolysis noted. Ordering Provider: MORENO DALE Report Released Date/Time: Oct 05, 2023 03:28 PM Reporting Lab: [facility] [place] [address] Performing Lab: [facility] VITAMIN D, 25-HYDROX Y 25-HYDROXYV ITAMIN D3 [MASS/VOLUM E] IN SERUM OR PLASMA 21.2 ng/mL 30 - 96 12/02 L Specimen Type: SERUM Comment: The listed sex of this patient may not be a typical indication for this test. Therefore, reference ranges or interpretiv e criteria listed may not be valid. Clinical correlation suggested. Ordering Provider: MORENO DALE Report Released Date/Time: Oct 05, 2023 03:28 PM Reporting Lab: [facility] [place] [address] Performing Lab: [facility] CBC LEUKOCYTES [#/VOLUME] IN BLOOD BY AUTOMATED COUNT 5.4 10*3/u L 3.6 - 11.2 12/02 Specimen Type: BLOOD No comment entered. Ordering Provider: MORENO DALE Report Released Date/Time: Oct 05, 2023 03:28 PM Reporting Lab: [facility] [phone] Performing Lab: [facility] CBC ERYTHROCYTE S [#/VOLUME] IN BLOOD BY AUTOMATED COUNT 5.29 10*6/u L 4.10 - 5.70 12/02 Specimen Type: BLOOD No comment entered. Ordering Provider: MORENO DALE Report Released Date/Time: Oct 05, 2023 03:28 PM Reporting Lab: [facility] [place] [address] Performing Lab: [facility] [address] CBC HEMOGLOBIN [MASS/VOLUM E] IN BLOOD 15.5 g/dL 13.1 - 16.8 12/02 Specimen Type: BLOOD No comment entered. Ordering Provider: MORENO DALE Report Released Date/Time: Oct 05, 2023 03:28 PM Reporting Lab: [facility] [place] [address] Performing Lab: [facility] [address] CBC HEMATOCRIT [VOLUME FRACTION] OF BLOOD 45.9 38.2 - 48.4 12/02 Specimen Type: BLOOD No comment entered. Ordering Provider: MORENO DALE Report Released Date/Time: Oct 05, 2023 03:28 PM Reporting Lab: [facility] [address] Performing Lab: [facility] CBC MCV [ENTITIC VOLUME] BY AUTOMATED COUNT 86.8 fL 80.0 - 100.0 12/02 Specimen Type: BLOOD No comment entered. Ordering Provider: MORENO DALE Report Released Date/Time: Oct 05, 2023 03:28 PM Reporting Lab: [facility] [address] Performing Lab: [facility] [place] [phone] CBC MCH [ENTITIC MASS] BY AUTOMATED COUNT 29.3 pg 27.0 - 34.0 12/02 Specimen Type: BLOOD No comment entered. Ordering Provider: MORENO DALE Report Released Date/Time: Oct 05, 2023 03:28 PM Reporting Lab: [facility] [place] [address] Performing Lab: [facility] [address] CBC MCHC [MASS/VOLUM E] BY AUTOMATED COUNT 33.8 g/dL 33.0 - 36.0 12/02 Specimen Type: BLOOD No comment entered. Ordering Provider: MORENO DALE Report Released Date/Time: Oct 05, 2023 03:28 PM Reporting Lab: [facility] [place] [address] Performing Lab: [facility] [address] CBC PLATELETS [#/VOLUME] IN BLOOD BY AUTOMATED COUNT 250 10*3/u L 150 - 400 12/02 Specimen Type: BLOOD No comment entered. Ordering Provider: MORENO DALE Report Released Date/Time: Oct 05, 2023 03:28 PM Reporting Lab: [facility] [phone] Performing Lab: [facility] CBC PLATELET MEAN VOLUME [ENTITIC VOLUME] IN BLOOD BY AUTOMATED COUNT 9.3 fL 7.5 - 11.2 12/02 Specimen Type: BLOOD No comment entered. Ordering Provider: MORENO DALE Report Released Date/Time: Oct 05, 2023 03:28 PM Reporting Lab: [facility] [address] Performing Lab: [facility] [phone] CBC ERYTHROCYTE DISTRIBUTIO N WIDTH [RATIO] BY AUTOMATED COUNT 12.1 11.8 - 15.1 12/02 Specimen Type: BLOOD No comment entered. Ordering Provider: MORENO DALE Report Released Date/Time: Oct 05, 2023 03:28 PM Reporting Lab: [facility] [address] Performing Lab: [facility] CBC LYMPHOCYTES /100 LEUKOCYTES IN BLOOD BY AUTOMATED COUNT 30 12/02 Specimen Type: BLOOD No comment entered. Ordering Provider: MORENO DALE Report Released Date/Time: Oct 05, 2023 03:28 PM Reporting Lab: [facility] [address] Performing Lab: [facility] [phone] CBC MONOCYTES/1 00 LEUKOCYTES IN BLOOD BY AUTOMATED COUNT 8 12/02 Specimen Type: BLOOD No comment entered. Ordering Provider: MORENO DALE Report Released Date/Time: Oct 05, 2023 03:28 PM Reporting Lab: [facility] [address] Performing Lab: [facility] [phone] CBC NEUTROPHILS /100 LEUKOCYTES IN BLOOD BY AUTOMATED COUNT 60 12/02 Specimen Type: BLOOD No comment entered. Ordering Provider: MORENO DALE Report Released Date/Time: Oct 05, 2023 03:28 PM Reporting Lab: [facility] [address] Performing Lab: [facility] [address] [facility] CBC EOSINOPHILS /100 LEUKOCYTES IN BLOOD BY AUTOMATED COUNT 2 12/02 Specimen Type: BLOOD No comment entered. Ordering Provider: MORENO DALE Report Released Date/Time: Oct 05, 2023 03:28 PM Reporting Lab: [facility] [address] Performing Lab: [facility] [phone] CBC BASOPHILS/1 00 LEUKOCYTES IN BLOOD BY AUTOMATED COUNT 1 12/02 Specimen Type: BLOOD No comment entered. Ordering Provider: MORENO DALE Report Released Date/Time: Oct 05, 2023 03:28 PM Reporting Lab: [facility] [address] Performing Lab: [facility] [phone] CBC LYMPHOCYTES [#/VOLUME] IN BLOOD BY AUTOMATED COUNT 1.61 10*3/u L 0.77 - 4.50 12/02 Specimen Type: BLOOD No comment entered. Ordering Provider: MORENO DALE Report Released Date/Time: Oct 05, 2023 03:28 PM Reporting Lab: [facility] [address] Performing Lab: [facility] [phone] [place] [address] CBC MONOCYTES [#/VOLUME] IN BLOOD BY AUTOMATED COUNT 0.43 10*3/u L 0.19 - 0.80 12/02 Specimen Type: BLOOD No comment entered. Ordering Provider: MORENO DALE Report Released Date/Time: Oct 05, 2023 03:28 PM Reporting Lab: [facility] [address] Performing Lab: [facility] [place] [phone] CBC NEUTROPHILS [#/VOLUME] IN BLOOD BY AUTOMATED COUNT 3.22 10*3/u L 2.10 - 8.00 12/02 Specimen Type: BLOOD No comment entered. Ordering Provider: MORENO DALE Report Released Date/Time: Oct 05, 2023 03:28 PM Reporting Lab: [facility] [address] Performing Lab: [facility] [phone] CBC EOSINOPHILS [#/VOLUME] IN BLOOD BY AUTOMATED COUNT 0.10 10*3/u L 0.00 - 0.60 12/02 Specimen Type: BLOOD No comment entered. Ordering Provider: MORENO DALE Report Released Date/Time: Oct 05, 2023 03:28 PM Reporting Lab: [facility] [address] Performing Lab: [facility] [phone] [address] CBC BASOPHILS [#/VOLUME] IN BLOOD BY AUTOMATED COUNT 0.05 10*3/u L 0.00 - 0.20 12/02 Specimen Type: BLOOD No comment entered. Ordering Provider: MORENO DALE Report Released Date/Time: Oct 05, 2023 03:28 PM Reporting Lab: [facility] [address] Performing Lab: [facility] [phone] [place] [address] Vital Signs Combined list of inpatient and outpatient Vital Signs from Department of Defense and Veterans Affairs, ranging from 12 months to all on record, depending upon the facility. Vital Sign Value Date Comments Source SYSTOLIC BLOOD PRESSURE 142 12/31/19 24 09:35:02 [facility] DIASTOLIC BLOOD PRESSURE 93 024 09:35:02 [facility] PULSE OXIMETRY 99 12/31/2023 09:35:02 [facility] WEIGHT 213.7 12/31/2023 09:35:02 [facility] BMI 30 kg/m2 12/31/2023 09:35:02 [facility] PAIN 0 12/31/2023 09:35:02 [facility] HEIGHT 70.5 12/31/2023 09:35:02 [facility] TEMPERATURE 97.5 12/31/2023 09:35:02 [facility] PULSE 92 12/31/2023 09:35:02 [facility] RESPIRATION 20 12/31/2023 09:35:02 [facility] SYSTOLIC BLOOD PRESSURE 128 10/05/19 24 15:04:02 [facility] DIASTOLIC BLOOD PRESSURE 80 024 15:04:02 [facility] PULSE OXIMETRY 97 10/05/2023 15:04:02 [facility] WEIGHT 207 10/05/2023 15:04:02 [facility] BMI 30 kg/m2 10/05/2023 15:04:02 [facility] PAIN 4 10/05/2023 15:04:02 [facility] TEMPERATURE 97.9 10/05/2023 15:04:02 [facility] PULSE 70 10/05/2023 15:04:02 [facility] RESPIRATION 18 10/05/2023 15:04:02 [facility] Encounters Combined list of: 1) Encounters from Department of Veterans Affairs facilities going backup to the last 18 months, not all VA inpatient encounters are included; 2) Encounters from the Department of Defense facilities going backup to 280 months. Location Location Details Encounter Type Encounter Number Reason For Visit Attending Provider ADM Date DC Date Status Disposition Source [facility] D Recruit Processin g) OUTPATIENT [id number] MAHENDRA BLAKE 09/18 Released w/o Limitations [facility]( CRD Recruit Process ing) [facility](MCR D Optometry ) OUTPATIENT [id number] RECRUIT TORI HUGHES 09/18 Released w/o Limitations [facility]( CRD Optomet ry) [facility](MCR D Recruit Sick Call) OUTPATIENT [id number] COUGH X2 DAYS LOBO AGUILAR E 09/24 Released with Work/Duty Limitations [facility]( CRD Recruit Sick Call) [facility] D Sports Medicine) OUTPATIENT [id number] LEFT ANKLE SANCHEZ, ARACELIS J 09/24 Released with Work/Duty Limitations [facility]( CRD Sports Medicin e) [facility] D Sports Medicine) OUTPATIENT [id number] celluli tis ankle/b am ARACELIS SANCHEZ 09/25 Released with Work/Duty Limitations [facility]( CRD Sports Medicin e) [facility] D Sports Medicine) OUTPATIENT [id number] celluli tis/bam VICENTE NAVARRETE 09/26 Released with Work/Duty Limitations [facility]( CRD Sports Medicin e) [facility] D Recruit Processin g) OUTPATIENT [id number] T22 DENIZ BHAGAT 10/17 Released w/o Limitations [facility]( CRD Recruit Process ing) [facility] D Recruit Sick Call) OUTPATIENT [id number] URI X 5 DAYS DC CHANCE ALEN 11/10 Released with Work/Duty Limitations [facility]( CRD Recruit Sick Call) [facility] D Sports Medicine) OUTPATIENT [id number] back pain VICENTE NAVARRETE 11/10 Released w/o Limitations [facility]( CRD Sports Medicin e) [facility] D Recruit Processin g) OUTPATIENT [id number] T48 VACCINE ELVIRA POLLARD 11/17 Released w/o Limitations [facility]( CRD Recruit Process ing) [facility]) OUTPATIENT [id number] 06/02/19 12 POST-AN AM LEYDA CAMPBELL 06/09 Released w/o Limitations [facility]( [facility]- TRAM) [facility]-AN ) OUTPATIENT [id number] POST [facility] ENCOUNLEYDA MYERS 04/13 Released w/o Limitations [facility]( [facility] ent [facility] [place]- TRAM) [facility](Op tometry [facility]) OUTPATIENT [id number] routine eye exam ADA SARABIA 09/06 Released w/o Limitations [facility]( Optomet ry [address]) [facility]( aring Conserv-B 65) OUTPATIENT [id number] LEANDRO TIDWELL 01/11 Released w/o Limitations [facility]( Hearing Conserv -B65) [facility]) OUTPATIENT [id number] 04/03/20 13 [facility] MATT VALENTE 04/04 Released w/o Limitations [facility]( [facility] ent Health Center- TRAM) [facility]( aring Conserv-B 65) OUTPATIENT [id number] Notes Entered by: JENAE CHEUNG 11 Dec 2013 0850 ------- ------- ------- ------- -- FISH FRAGA 12/11 Released w/o Limitations [facility]( Hearing Conserv -B65) [facility](3 BN) OUTPATIENT [id number] Notes Entered by: GENEVIEVE VALDES 19 Feb 2014 0941 ------- ------- ------- ------- -- Pain in hand ETHEL JULES 02/19 Released with Work/Duty Limitations [facility]( 07/08 BN) [facility](07/08 BN) OUTPATIENT [id number] Notes Entered by: GENEVIEVE VALDES 06 Mar 2014 0759 ------- ------- ------- ------- -- F/U for ETHEL Lopez 03/06 Released w/o Limitations [facility]( 07/08 BN) [facility](07/08 BN) OUTPATIENT [id number] Notes Entered by: CATARINA CABEZAS 07 May 2014 0833 ------- ------- ------- ------- -- Refill of medicat ETHEL Brown 05/07 Released w/o Limitations [facility]( 07/08 BN) [facility](Sp orts Medicine- [facility]) OUTPATIENT [id number] Notes Entered by: Varghese HARDWICK 28 May 2014 1324 ------- ------- ------- ------- -- SOI-E ATC Eval for Right Hand/Wr ist Pain RASHID HARDWICK 05/28 Released w/o Limitations [facility]( Sports Medicin e- [facility]) [facility]) OUTPATIENT [id number] PRE/ADEEL AJIT TOURE 10/04 Released w/o [facility]( [facility]) [facility]( aring Conserv-B 65) OUTPATIENT [id number] Notes Entered by: DENIZ KNAPP 11 Oct 2014 1108 ------- ------- ------- ------- -- DENIZ Vargas 10/11 Released w/o Limitations [facility]( Hearing Conserv -B65) [facility]() OUTPATIENT [id number] Notes Entered by: SONDRA GUERRA 19 Jun 2015 0835 ------- ------- ------- ------- -- ALESSIA DELUCA 06/19 Released w/o Limitations [facility]( 07/08 BN) [facility](Op tometry [facility]) OUTPATIENT [id number] ROUTINE EYE EXAM NEEDS GLASSES TUNDE MAN 06/27 Released w/o Limitations [facility]( Optomet ry [facility]) [facility](He aring Conserv-B 65) OUTPATIENT [id number] Notes Entered by: DENIZ KNAPP 08 Jul 2015 1456 ------- ------- ------- ------- -- term DENIZ KNAPP 07/07 Released w/o Limitations [facility]( Hearing Conserv -B65) [facility]() OUTPATIENT [id number] Notes Entered by: KOFI MORALEZ 26 Jul 2015 0856 ------- ------- ------- ------- -- shad PARKER(ID C)CECILIO 07/25 Released w/o Limitations [facility]( 07/08 BN) [facility](07/08 BN) OUTPATIENT [id number] Notes Entered by: KOFI MORALEZ 01 Aug 2015 0850 ------- ------- ------- ------- -- urinary issues KATARINA GALLOWAY 07/31 Released w/o Limitations [facility]( 07/08 BN) [facility] OFFICE O/P EST MOD 30 MIN [id number] Diagnos is: ICD-10- CM Q54.1 Hypospa frank, penile CHIOTGOD T 06/18 [facility] Outpatient Encounter [id number] 07/12 [facility] Outpatient Encounter [id number] GO DALE MMAD T 09/04 [facility] OFFICE O/P EST MOD 30 MIN [id number] Diagnos is: ICD-10- CM Q54.1 Hypospa frank, penile CHITOGO Mcmullen MMAD T 10/04 [facility] Outpatient Encounter [id number] 10/04 [facility] Outpatient Encounter [id number] 10/[address] [facility] PSYTX W PT 60 MINUTES [id number] Diagnos is: ICD-10- CM F41.8 Other specifi ed anxiety disorde PAMELA Singh 10/18 [facility] Outpatient Encounter [id number] IBRAHIMA ADAMS 10/20 [facility] Outpatient Encounter [id number] 10/25 [facility] PSYTX W PT 30 MINUTES [id number] Diagnos is: ICD-10- CM F41.8 Other specifi ed anxiety disorde rs Sanjeev EDGAR 10/28 [facility] Outpatient Encounter [id number] 10/31 [facility] PSYTX W PT 45 MINUTES [id number] Diagnos is: ICD-10- CM F43.20 Adjustm ent disorde r, unspeci fied PAMELA RIOS S 11/15 [facility] Outpatient Encounter [id number] CHITOGO Mcmullen GENEVIEVE T 11/[address] 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 TONY Espinoza IS J 12/30 [facility] Outpatient Encounter [id number] 01/04 [facility] Outpatient Encounter [id number] 01/04 [facility] Outpatient Encounter [id number] CRISTINA CHANDRA 01/04 [facility] Outpatient Encounter [id number] LAURI THAYER 01/05 [facility] OFF/OP EST MAY X REQ PHY/QHP [id number] Diagnos is: ICD-10- CM Z71.9 Clean Room Technician ing, unspeci fiPRIYANK Song 01/19 [facility] OFFICE O/P EST MOD 30 MIN [id number] Diagnos is: ICD-10- CM I10 Essenti al (primar y) hyperte GO Bowling MMAD T 01/23 [facility] Outpatient Encounter [id number] RASHID PERSAUD 01/27 [facility] Outpatient Encounter [id number] 01/27 [facility] Outpatient Encounter [id number] 02/08 [facility] Outpatient Encounter [id number] 02/08 [facility] Outpatient Encounter [id number] 02/14 [facility] OFFICE O/P NEW HI 60 MIN [id number] Diagnos is: ICD-10- CM F41.1 General ized anxiety disorde r CATARINA NEGRON 02/[address] [facility] Outpatient Encounter [id number] ALLEGRA NUNEZ 02/16 [facility] Outpatient Encounter [id number] CATARINA NEGRON IEL N [facility] Outpatient Encounter [id number] 03/15 [facility] Q[facility] OL DIG ASSMT&MGMT 5-10 [id number] Diagnos is: ICD-10- CM Z02.9 Encount er for adminis trative examina tions, unspeci Varghese Mc A 03/16 [facility] POS AIRWAY PRESSURE CPAP [id number] Diagnos is: ICD-10- CM G47.33 Obstruc tive sleep apnea (adult) ([facility]) CYNDIE CRUZ LBY 03/16 [facility] POS AIRWAY PRESSURE CPAP [id number] Diagnos is: ICD-10- CM G47.33 Obstruc tive sleep apnea (adult) ([facility]) CYNDIE CRUZ LBY 03/16 [facility] [place] [facility] EST MOD 30 MIN [id number] Diagnos is: ICD-10- CM F41.1 General ized anxiety disorde r CATARINA NEGRON IEL 03/[address] [facility] [place] [facility] Outpatient Encounter [id number] 03/20 [facility] Outpatient Encounter [id number] 03/20 [facility] Outpatient Encounter [id number] GO DALE MMAD T 03/27 [facility] Outpatient Encounter [id number] 03/[address] [facility] PSYTX W PT 60 MINUTES [id number] Diagnos is: ICD-10- CM F41.0 Panic disorde r [episod ic paroxys mal anxiety ] ME MIGEL JIMÉNEZ M 04/11 [facility] PSYTX W PT 60 MINUTES [id number] Diagnos is: ICD-10- CM F41.0 Panic disorde r [episod ic paroxys mal anxiety ] ME MIGEL JIMÉNEZ M 04/17 [facility] [place] [facility] OFFICE O/P EST MOD 30 MIN [id number] Diagnos is: ICD-10- CM F41.0 Panic disorde r [episod ic paroxys mal anxiety ] CATARINA NEGRON IEL 04/[address] [facility] [place] [facility] Outpatient Encounter [id number] 04[facility]19 [facility] W PT 60 MINUTES [id number] Diagnos is: ICD-10- CM F41.0 Panic disorde r [episod ic paroxys mal anxiety ] ME MIGEL JIMÉNEZ M 05/01 [facility] [place] [facility] SYNCH AUDIO-VIDE O EST MOD 30 [id number] Diagnos is: ICD-10- CM F41.1 General ized anxiety disorde r CATARINA NEGRON IEL 05/[address] [facility] [place] [facility] Outpatient Encounter [id number] 05/24 [facility] PSYTX W PT 60 MINUTES [id number] Diagnos is: ICD-10- CM F41.0 Panic disorde r [episod ic paroxys mal anxiety ] ME MIGEL JIMÉNEZ M 05/25 [facility] PSYTX W PT 60 MINUTES [id number] Diagnos is: ICD-10- CM F41.0 Panic disorde r [episod ic paroxys mal anxiety ] ME MIGEL JIMÉNEZ M 06/08 [facility] Outpatient Encounter [id number] ME MIGEL JIMÉNEZ M 06/08 [facility] PSYTX W PT 60 MINUTES [id number] Diagnos is: ICD-10- CM F41.0 Panic disorde r [episod ic paroxys mal anxiety ] ME MIGEL JIMÉNEZ M 06/26 [facility] SYNCH AUDIO-VIDE O EST MOD 30 [id number] Diagnos is: ICD-10- CM F41.0 Panic disorde r [episod ic paroxys mal anxiety ] CATARINA NEGRON IEL 06/[address] [facility] [place] [facility] Outpatient Encounter [id number] 06/26 [facility] PSYTX W PT 45 MINUTES [id number] Diagnos is: ICD-10- CM F41.0 Panic disorde r [episod ic paroxys mal anxiety ] ME MIGEL JIMÉNEZ 07/11 [facility] Outpatient Encounter [id number] ME MIGEL JIMÉNEZ M 07/13 [facility] Outpatient Encounter [id number] RAF BAL EE L 07/18 [facility] [place] [facility] SYNCH AUDIO-VIDE O EST MOD 30 [id number] Diagnos is: ICD-10- CM F41.1 General ized anxiety disorde r CATARINA NEGRON IEL 07/[address] [facility] [place] [facility] Outpatient Encounter [id number] 07/20 [facility] SYNCH AUDIO-ONLY EST MOD 30 [id number] Diagnos is: ICD-10- CM I47.11 Inappro priate sinus tachyca rdia, so stated GO DALE MMAD T 07/21 [facility] Outpatient Encounter [id number] 07/25 [facility] PSYTX W PT 60 MINUTES [id number] Diagnos is: ICD-10- CM F41.0 Panic disorde r [episod ic paroxys mal anxiety ] ME MIGEL JIMÉNEZ 07/31 [facility] Outpatient Encounter [id number] ME MIGEL JIMÉNEZ M 07/31 [facility] PSYTX W PT 60 MINUTES [id number] Diagnos is: ICD-10- CM F41.0 Panic disorde r [episod ic paroxys mal anxiety ] ME MIGEL JIMÉNEZ M 08/14 [facility] Outpatient Encounter [id number] ALLEGRA NUNEZ M 08/17 [facility] [place] [facility] PSYTX W PT W E/M 30 MIN [id number] Diagnos is: ICD-10- CM F41.1 General ized anxiety disorde r CATARINA NEGRON IEL 08/[address] [facility] [place] [facility] Outpatient Encounter [id number] 08/17 [facility] PSYTX W PT 60 MINUTES [id number] Diagnos is: ICD-10- CM F41.0 Panic disorde r [episod ic paroxys mal anxiety ] ME MIGEL JIMÉNEZ M 08/28 [facility] Procedures Combined list of: 1) Procedures from Department of Veterans Affairs facilities going back up to thelast 18 months, not all VA non-surgical procedures are included; 2) All procedures from the Department of Defense facilities. Procedure Procedure Type Code Date Perfomer Comments Sourc e INJECTION, PENICILLIN G BENZATHINE, 100,000 UNITS 011 DoD MUSCLE TESTING, MANUAL (SEPARATE PROCEDURE) WITH REPORT; EXTREMITY (EXCLUDING HAND) OR TRUNK 011 DoD THERAPEUTIC, PROPHYLACTIC, OR DIAGNOSTIC INJECTION (SPECIFY SUBSTANCE OR DRUG); SUBCUTANEOUS OR INTRAMUSCULAR 011 DoD PURE TONE AUDIOMETRY (THRESHOLD); AIR ONLY 011 DoD FITTING OF SPECTACLES, EXCEPT FOR APHAKIA; MONOFOCAL 011 DoD SKIN TEST; TUBERCULOSIS, INTRADERMAL 011 DoD PURE TONE AUDIOMETRY (THRESHOLD); AIR ONLY DoD FITTING OF SPECTACLES, EXCEPT FOR APHAKIA; MONOFOCAL 016 DoD PATIENT EDUCATION, NOT OTHERWISE CLASSIFIED, NON-PHYSICIAN PROVIDER, INDIVIDUAL, PER SESSION DoD NEUROPSYCHOLOGICAL TESTING (EG, [place] CARD SORTING TEST), ADMINISTERED BY A COMPUTER, WITH QUALIFIED HEALTH COMMUTATOR ASSEMBLER INTERPRETATION AND REPORT DoD APPLICATION OF A MODALITY TO 1 OR MORE AREAS; HOT OR COLD PACKS DoD SCREENING TEST, PURE TONE, AIR ONLY 014 DoD NEUROPSYCHOLOGICAL TESTING (EG, [place] CARD SORTING TEST), ADMINISTERED BY A COMPUTER, WITH QUALIFIED HEALTH COMMUTATOR ASSEMBLER INTERPRETATION AND REPORT DoD PATIENT EDUCATION, NOT OTHERWISE CLASSIFIED, NON-PHYSICIAN PROVIDER, GROUP, PER SESSION DoD DETERMINATION OF REFRACTIVE STATE DoD NEUROPSYCHOLOGICAL TESTING (EG, [place] CARD SORTING TEST), ADMINISTERED BY A COMPUTER, WITH QUALIFIED HEALTH COMMUTATOR ASSEMBLER INTERPRETATION AND REPORT DoD NEUROPSYCHOLOGICAL TESTING (EG, [place] CARD SORTING TEST), ADMINISTERED BY A COMPUTER, WITH QUALIFIED HEALTH COMMUTATOR ASSEMBLER INTERPRETATION AND REPORT DoD Patient education, not otherwise cla ified, non-physician provider, group, per se ion 016 DENIZ KNAPP Threshold Audiogram (Pure Tone) Threshold Audiogram (Pure Tone) 91542 016 DENIZ KNAPP Spectacles Services Fitting Monofocals (Not For Aphakia) Spectacles Services Fitting Monofocals (Not For Aphakia) 74741 016 TUNDE MAN Foc, r5a DoD Ophthalmological Prior Patient Start Comprehensive Care Ophthalmological Prior Patient Start Comprehensive Care 52766 016 TUNDE MAN Determination Of Refractive State Determination Of Refractive State 08738 016 TUNDE MAN Patient education, not otherwise cla ified, non-physician provider, individual, per se ion 015 DENIZ KNAPP Threshold Audiogram (Pure Tone) Threshold Audiogram (Pure Tone) 73131 015 DENIZ KNAPP [facility] Psychometric Neuropsych Testing Battery Admin By Computer Psychometric Neuropsych Testing Battery Admin By Computer 23236 015 ROSALEE PITTMAN I [facility] Modalities Cryotherapy Cold Packs Modalities Cryotherapy Cold Packs 96107 015 HUMBERTO HARDWICK Exercises A isted Exercises For ROM Exercises Assisted Exercises For ROM 09739 015 HUMBERTO HARDWICK Athletic Training Evaluation Athletic Training Evaluation 39671 015 HUMBERTO HARDWICK Audiogram (Screening) Audiogram (Screening) 01535 014 FISH TRAN [facility] Psychometric Neuropsych Testing Battery Admin By Computer Psychometric Neuropsych Testing Battery Admin By Computer 00949 013 JUDY FELICIANO Audiogram (Screening) Audiogram (Screening) 17767 013 LEANDRO TIDWELL [facility] Patient education, not otherwise cla ified, non-physician provider, group, per se ion 013 LEANDRO TIDWELL [facility] Determination Of Refractive State Determination Of Refractive State 00502 013 ADA SARABIA Ophthalmological New Patient Start Comprehensive Care Ophthalmological New Patient Start Comprehensive Care 72638 013 ADA SARABIA Spectacles Services Fitting Monofocals (Not For Aphakia) Spectacles Services Fitting Monofocals (Not For Aphakia) 95177 013 ADA SARABIA [facility] Psychometric Neuropsych Testing Battery Admin By Computer Psychometric Neuropsych Testing Battery Admin By Computer 10086 012 JUDY FELICIANO Psychometric Neuropsych Testing Battery Admin By Computer Psychometric Neuropsych Testing Battery Admin By Computer 68742 012 TYRESE TREVIZO [facility] Vaccines Viral Yellow Fever Vaccines Viral Yellow Fever 67380 011 SHILPI SMITH Vaccines Viral Varicella (Active) Vaccines Viral Varicella (Active) [address] Supervised Injection Intramuscular Antibiotic Supervised Injection Intramuscular Antibiotic 63863 011 SHILPI SMITH Injection, penicillin g benzathine, 100,000 units SHILPI SMITH Motor - Performing Exam - Extremity (not hand) Motor - Performing Exam - Extremity (not hand) 69040 GABINO OTERO [facility] Range Of Motion Evaluation Of Extremity Range Of Motion Evaluation Of Extremity 92589 011 GABINO OTERO [facility] Vaccines Viral Polio, Inactivated (Salk) Vaccines Viral Polio, Inactivated (Salk) [address] Supervised Injection Intramuscular Antibiotic Supervised Injection Intramuscular Antibiotic 89555 011 ELVIRA POLLARD [facility] Immunization Administration Each Additional Vaccine Immunization Administration Each Additional Vaccine 61299 011 ELVIRA POLLARD [facility] Immunization Administration One Vaccine Immunization Administration One Vaccine 57593 011 ELVIRA POLLARD [facility] Vaccines Viral Varicella (Active) Vaccines Viral Varicella (Active) 59647 011 LATRICE, ELVIRA DoD Hepatitis A And Hepatitis B (Intramuscular Use) Adult Dosage Hepatitis A And Hepatitis B (Intramuscular Use) Adult Dosage 60580 011 ELVIRA POLLARD [facility] Spectacles Services Fitting Monofocals (Not For Aphakia) Spectacles Services Fitting Monofocals (Not For Aphakia) 54488 011 JT NUÑEZ Determination Of Refractive State Determination Of Refractive State 75567 011 JT NUÑEZ Ophthalmological New Patient Start Intermediate Level Care Ophthalmological New Patient Start Intermediate Level Care 87421 011 JT NUÑEZ Collection Of Capillary Blood Specimen Collection Of Capillary Blood Specimen 03869 SHILPI SMITH Skin Test Anergy Tuberculin Intradermal Skin Test Anergy Tuberculin Intradermal 83699 SHILPI SMITH Immunology Studies Immunology Studies 39440 21/06 SHILPI SMITH Venipuncture Venipuncture 17970 SHILPI SMITH Tdap Vaccine Seven Years Of Age And Above Tdap Vaccine Seven Years Of Age And Above 29308 011 MYRA MUSA SHILPI Paul [facility] Pneumococcal Polysaccharide Vaccine Adult Dos For Intramusc Pneumococcal Polysaccharide Vaccine Adult Dos For Intramusc 16836 011 LUIS, SHILPI Miller [facility] Meningococcal Polysaccharide Vaccine (Active) Meningococcal Polysaccharide Vaccine (Active) 10495 011 SHILPI SMITH [facility] Hepatitis A And Hepatitis B (Intramuscular Use) Adult Dosage Hepatitis A And Hepatitis B (Intramuscular Use) Adult Dosage 24921 011 MYRA MUSA SHILPI Miller [facility] Social History Combined list of available smoking, tobacco, and other social history from Department of Defense and [facility] facilities. 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 [facility] Plan of Care List of future care activities from Department of Veterans Affairs facilities. Additional future care activities may be listed in the Assessment and Plan section. Date/Time Care Activity Care Activity Detail Facili ty 09/18/2024 AMBULATORY - PSYCHIATRY AMBULATORY - PSYC HIATRY [facility]
--- OUTSIDE RECORDS SUMMARY | 2024-08-29 14:07 | XMS_ITS | Encounter Summary ---
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 Date/Time Encounter Type Encounter Description Reason Pro vider Source Jul 20, 2024 04:00 PM Outpatient Encounter ADMIN PAT ACTIVTIES (MASNONCT) IHE Encounter Template Text not used by VA Plan of Treatment: Future Appointments (+ 6 months) and Future Tests (+/- 45 days) The Plan of Treatment section includes future care activities for the patient from all [place] [facility]. This section includes future appointments and future orders which are active, pending or scheduled. Future Appointments This section includes appointments that were scheduled to occur 6 months from the date of the Encounter, up to a maximum of 20 appointments. The data comes from all [facility]. Appointment Date/Time Appointment Type Appointme nt Facility Name Jul 21, 2024 08:30 AM AMBULATORY - MEDICINE [facility] Jul 31, 2024 02:00 PM AMBULATORY - PSYCHIATRY [facility] Aug 14, 2024 01:00 PM AMBULATORY - PSYCHIATRY [facility] Aug 17, 2024 04:00 PM AMBULATORY - PSYCHIATRY [facility] Aug 17, 2024 04:00 PM [facility] [place] [facility] Aug 28, 2024 03:00 PM AMBULATORY - PSYCHIATRY [facility] September 18, 2024 03:00 PM AMBULATORY - PSYCHIATRY [facility] September 29, 2024 03:30 PM AMBULATORY - PS[facility]CHIATRY [facility] [place] [facility] September 29, 2024 03:30 PM AMBULATORY - PSYCHIATRY [facility] Active, Pending, and Scheduled Orders This section includes a listing of several types of active, pending, and scheduled orders, including clinic medications orders, diagnostic test orders, procedure orders and consult orders; where the start date of the order is 45 days before the date of the Encounter or 45 days after the date of theEncounter. The data comes from all [facility]. Test Date/Time Test Type Test Details Facility Name Jul 18, 2024 12:00 AM Laboratory - Chemistry Order TSH W/ REFLEX FT4 (STL) GREEN LI-HEP PLASMA [facility] Jul 18, 2024 12:00 AM Laboratory - Chemistry Order VITAMIN D, 25-HYDROXY GOLD/RED SST [facility] Jul 18, 2024 12:00 AM Laboratory - Chemistry Order COMPREHENSIVE METABOLIC PANEL GREEN LI/HEP BLD/PLAS [facility] Jul 18, 2024 12:00 AM Laboratory - Chemistry Order URINALYSIS (STL-PB) URINE [facility] Jul 18, 2024 12:00 AM Laboratory - Chemistry Order LIPID PANEL (STL) GREEN LI/HEP BLD/PLAS PLASMA SP ONCE [facility] Jul 18, 2024 12:00 AM Laboratory - Chemistry Order CBC BLOOD SP [facility] Jul 18, 2024 12:00 AM Laboratory - Chemistry Order [id number] BLOOD SP [facility] Encounter Notes: All associated encounter notes This section contains the clinical notes associated to the Encounter. Date/Time Encounter Note(s) Provider Source Jul 20, 2024 03:55 PM ACCOUNTING OF DISC LOSURES NOTE: LOCAL TITLE: STATE PRESCRIPTION DRUG MONITORING PROGRAM STANDARD TITLE: ACCOUNTING OF DISCLOSURES NOTE DATE OF NOTE: JUL 20, 2024@15:55:28 ENTRY DATE: JUL 20, 2024@15:55:28 AUTHOR: JONO NEGRON EXP COSIGNER: URGENCY: STATUS: COMPLETED This PDMP query was submitted by Jono Negron. The clinical justification for this PDMP query is to review controlled substances prescribed outside of the [facility], and any additional information that may become available, as an important component of standard clinical care, and in accordance with [facility] policy. Patient information was shared with the PDMP Appriss Earling. No prescription(s) for controlled substances outside the [facility] were found in the last 90 days. /allan/ JONO NEGRON Psychiatrist V15 Signed: 07/20/2024 15:55 JONO NEGRON [facility] Jul 20, 2024 03:55 PM PSYCHIATRY NOTE: LOCAL TITLE: PSYCHIATRY ST[facility] STANDARD TITLE: PSYCHIATRY NOTE DATE OF NOTE: JUL 20, 2024@15:55 ENTRY DATE: JUL 20, 2024@15:56:04 AUTHOR: JONO NEGRON EXP COSIGNER: URGENCY: STATUS: COMPLETED Encounter was conducted via Telehealth Modality with patient located at home via [facility]. Verbal informed consent was obtained from the [place] at the time of the encounter. Video room locked at time of appointment. Two patient identifiers were utilized for patient identification. address: [address] [place] [phone] phone: Primary NOK: [id number] Relation: UNRELATED FRIEND/ <street address not available> Length of services provided: 25 minutes (15 video, 10 chart review and documentation) Chief complaint: f/u MH med management with diagnoses ADHD, combined type GLORIA with panic attacks r/o mood disorder Subjective- Today, the patient reports: At last appointment continued clonazepam 0.25mg PO BID prn for severe anxiety only. He has stopped Concerta due to anxiety but will consider restart 18mg next visit. He has stopped mirtazapine feeling hungover next day with it. States he may take rarely for a good night sleep so will not discontinue for now Getting over being sick. Just started beta asad today. Started on nadolol. Is planning to see how he does for a little while before going to gym, then potentially considering restart of Concerta. For now he would like to wait a while on nadolol and monitor, just taking clonazepam as needed. REVIEW OF SYSTEMS (ROS): Sleep: recent sleep study showed VANESSA and has CPAP, recently with new mask and trying this Energy level: ongoing fear of being too active, will ease into this now on beta asad Appetite: intact other than having been sick SI and HI: denied AVH, paranoia, delusions: denied Hypomania or montrell: denied Pain: denied ========= History from initial encounter with this provider for reference: Firearms Access: yes Nutrition: no unexpected weight changes/other nutritional concerns Psychiatric History: Past therapy: IPT helpful in past, tried EMDR but did not feel was a good fit Past medical interventions: escitalopram- zombie , clonidine ED hospitalizations: denied Substance Related Treatment: denied Suicide attempts or SIB: denied Family Psychiatric History: father AUD Social History: Raised by: mother more than father, when he was 3 Primary relatives: only child Legal: denied Highest level of education or training: bachelor's 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 Indication: FOR ANXIETY 2) LOSARTAN 100MG TAB TAKE ONE-HALF TABLET BY MOUTH ONCE A DAY ACTIVE Indication: FOR HIGH BLOOD PRESSURE 3) MIRTAZAPINE 30MG TAB TAKE ONE TABLET BY MOUTH AT BEDTIME ACTIVE TAKE ONE HOUR PRIOR TO BEDTIME. Indication: ANXIETY/SLEEP/MOOD 4) PANTOPRAZOLE NA 40MG EC TAB TAKE ONE TABLET BY MOUTH EVERY ACTIVE MORNING BEFORE A MEAL TAKE 30 MINUTES BEFORE MEAL(S) Indication: FOR GASTROESOPHAGEAL REFLUX DISEASE Active Non-VA Medications Status = 1) Non-VA LOSARTAN 50MG TAB 25MG BY MOUTH ONCE A DAY ACTIVE Indication: FOR HIGH BLOOD PRESSURE 2) Non-VA NAPROXEN 500MG TAB 500MG BY MOUTH TWICE DAILY ACTIVE NEEDED 6 Total Medications MEDICAL HISTORY: 1) Gastroesophageal reflux [...] 12:35 TSH: TSH 1.054 uIU/mL 12/03/2023 09:18 [place]: ____ Depakote: ____ Carbamazepine: No CARBAMAZEPINE EO [...] 09:17 Folate: No FOLATE (STL-MA);FOLATE (PB);FOLATE (DC 10-08);FOLATE (DC 02/07) data found B12: No B12 EO data found Vitals: VSD - Detailed Vitals No data available Mental Status Exam: Orientation: A+O to person, date and situation grossly General appearance: appropriately groomed, good eye contact via video, Mood: pretty good Affect: slightly restricted but appropriately reactive, more calm and euthymic today Gait: patient was seated Memory: sufficient to [...] clinic: f/u next month, sooner prn The agrees to contact the clinic sooner for any new or worsening symptoms. --Discussed plan as written above with who verbalized understanding and agreement with plan. Detailed safety plan was discussed with the patient. -[place] would ask for help if needed -All ways to access care discussed with patient including how and when to call the mental health clinic, 24 hour emergency room services, [facility] Crisis Line ([phone] or Text [phone]) and 911. Patient voiced understanding and agreed to utilize these services when needed. /allan/ JONO NEGRON Psychiatrist V15 Signed: 07/20/2024 16:06 JONO NEGRON [facility]
--- OUTSIDE RECORDS SUMMARY | 2024-08-29 14:08 | XMS_ITS | Encounter Summary ---
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 [place] [facility] [place] Organization [facility] [place] Address [address] [place] [address] Care Team Providers Care Customer Data Technician Name Role Phone TIFFANIE DALE Primary Care [...] ION RX PLAN Oct 09, 2022 [id number] [phone] ADA GALO PATIENT [facility] [place] GE OF JAY[employer]AY [employer] Oct 09, 2022 [id number] [phone] ADA GALO PATIENT [facility] [place] GE OF [facility] Oct 09, 2022 [id number] [phone] ADA GALO PATIENT Selected Encounter This section includes the information on record at [place] for the Encounter. Date/Time Encounter Type Encounter Description Reason Provider Source Jun 26, 2024 05:00 PM SYNCH AUDIO-VIDEO EST MOD 30 [facility] CLINIC - IND ICD-10-CM F41.0 Panic disorder [episodic paroxysmal anxiety] ALEA NEGRON Encounter Template Text not used by [facility] Assessments - Encounter Diagnoses This section includes the primary and secondary diagnoses documented for the Encounter. Date/Time Primary/Secondary Diagnosis Diagnosis Name Provider Source Jun 26, 2024 05:08 PM PRIMARY Panic disorder [episodic paroxysmal anxiety] ALEA NEGRON [facility] Jun 26, 2024 05:08 PM SECONDARY Attention-deficit hyperactivity disorder, combined type ALEA NEGRON [facility] Jun 26, 2024 05:08 PM SECONDARY Generalized anxiety disorder ALEA NEGRON [facility] Plan of Treatment: Future Appointments (+ 6 months) and Future Tests (+/- 45 days) The Plan of Treatment section includes future care activities for the patient from all [place] [facility]. This section includes future appointments and future [...] 11, 2024 09:30 AM AMBULATORY - PSY[facility]IATRY [facility] Jul 20, 2024 04:00 PM AMBULATORY - PSYCHIATRY [facility] Jul 20, 2024 04:00 PM AMBULATORY - PSYCHIATRY [facility] Jul 21, 2024 08:30 AM AMBULATORY - MEDICINE [facility] Jul 31, 2024 02:00 PM AMBULATORY - PSYCHIATRY [facility] Aug 14, 2024 01:00 PM AMBULATORY - PSYCHIATRY [facility] Aug 17, 2024 04:00 PM AMBULATORY - PSYCHIATRY [facility] Aug 17, 2024 04:00 PM [facility]ULATORY [facility] Aug 28, 2024 03:00 PM AMBULATORY - PSYCHIATRY [facility] September 18, 2024 03:00 PM AMBULATORY - PSYCHIATRY [facility] September 29, 2024 03:30 PM AMBULATORY - PSYCHIATRY [facility] September 29, 2024 03:30 PM AMBULATORY - PSYCHIATRY [facility] Active, Pending, and Scheduled Orders This section includes a listing of several types of active, pending, and scheduled orders, including clinic medications orders, diagnostic test orders, procedure orders and consult orders; where the start date of the order is 45 days before the date of the Encounter or 45 days after the date of theEncounter. The data comes from all [place] treatment facilities. Test Date/Time Test Type Test Details Facility Name Jul 18, 2024 12:00 AM Laboratory - Chemistry Order TSH W/ REFLEX FT4 (STL) GREEN LI-HEP PLASMA [facility] Jul 18, 2024 12:00 AM Laboratory - Chemistry Order VITAMIN D, 25-HYDROXY GOLD/RED SST SERUM [facility] Jul 18, 2024 12:00 AM Laboratory - Chemistry Order COMPREHENSIVE METABOLIC PANEL GREEN LI/HEP BLD/PLAS PLASMA [facility] Jul 18, 2024 12:00 AM Laboratory - Chemistry Order LIPID PANEL (STL) GREEN LI/HEP BLD/PLAS PLASMA [facility] Jul 18, 2024 12:00 AM Laboratory - Chemistry Order URINALYSIS (STL-PB) URINE [facility] Jul 18, 2024 12:00 AM Laboratory - Chemistry Order CBC BLOOD [facility] Jul 18, 2024 12:00 AM Laboratory - Chemistry Order [id number] BLOOD [facility] Encounter Notes: All associated encounter notes This section contains the clinical notes associated to the Encounter. Date/Time Encounter Note(s) Provider Source Jun 26, 2024 04:37 PM MENTAL HEALTH PHYS ICIAN NOTE: LOCAL TITLE: EK-PHYSICIAN STANDARD TITLE: MENTAL HEALTH PHYSICIAN NOTE DATE OF NOTE: JUN 26, 2024@16:37 ENTRY DATE: JUN 26, 2024@16:37:33 AUTHOR: ALEA NEGRON EXP COSIGNER: URGENCY: STATUS: COMPLETED A telehealth encounter was conducted with ADA GALO MATTHEW ALLEN at [facility] on Jun. Please see [employer] for progress note, clinical reminders and patient orders. /allan/ ALEA NEGRON MD PSYCHIATRIST Signed: 06/26/2024 17:14 ALEA NEGRON [facility]
--- OUTSIDE RECORDS SUMMARY | 2024-08-29 14:08 | XMS_ITS | Referral Summary ---
Author Organization [facility] Address [address] [place] [address] Care Team Providers Care Fire Eater Name Role Phone Kwsai Manriquez MD Primary Care Provider Luc Sorensen MD Unavailable Allergies No known active allergies Medications multivitamin capsuleIndicatio ns:Vitamin Deficiency Prevention Take 1 capsule by mouth every morning Active pantoprazole DR (PROTONIX) 40 mg EC tabletIndication s:Gastroesophage al reflux disease without esophagitis TAKE 1 TABLET(40 MG) BY MOUTH DAILY 30 tablet 2 06/26/2022 Active ibuprofen (ADVIL,MOTRIN) 800 mg tablet Take 1 tablet (800 mg total) by mouth 3 (three) times a day 90 tablet 1 07/29/2022 Active traMADoL (ULTRAM) 50 mg tablet Take 1 tablet (50 mg total) by mouth every 6 (six) hours as needed for pain for up to 7 days 28 tablet 07/29/2022 Active Active Problems Problem Noted Date Diagnosed Date Gastroesophageal reflux disease without esophagi tis 03/25/2022 Assessment & Plan (03/29/2022 1:59 PM MARKER ASSEMBLER): Will switch to Protonix from omeprazole GI referral ordered, likely will need EGD Add probiotic to daily regimen Cut back on caffeine intake, avoid alcohol for the time being Encounter for medical examination to establish c are 11/20/2021 Assessment & Plan (11/20/2021 9:26 PM CDT): A(n) initial well visit to establish care has been performed today. Dann Cazares is up to date on screening tests. He is in need of None- no screening indicated at this time. He is not up to date on needed preventative vaccinations; He is in need of Tdap/Td and Covid-19 (booster). Recommended Voltaren topical cream/gel (OTC) May continue PRN naproxen, tylenol Recommended compression over the elbow if active BP looks slightly elevated today Olecranon bursitis of left elbow 11/18/2021 Other anterior urethral stricture, male, anterio r 08/23/2018 Overview (08/23/2018): Added automatically from request for surgery [id number] Immunizations Immunization Administration Dates Next Due Influenza, Quadrivalent, Spl it, Preservative Free, Intramuscular 03/25/2022 Influenza, Unspecified 05/03/2021(Deferr ed: Patient Refused),05/03/2020(Deferred: Patient Refused) Pfizer SARS-CoV-2 Monovalent Vaccination (12+ Yrs) PURPLE 06/14/2020,05/24/2020 Tdap 03/25/2022 Social History Tobacco Use Types Packs/Day Years Used Date Smoking Tobacco: Former Cigarettes 0.5 3 2 012 - 2015 Passive Smoke Exposure: Never Smokeless Tobacco: Former Chew, Snuff Quit: 2014 Tobacco Cessation:Counseling Given: Not Answered AUDIT-C Answer Date Recorded Q1: How often do you have a drink containing alc ohol? Monthly or less 04/21/2022 Q2: How many drinks containi ng alcohol do you have on a typical day when you are drinking? 1 or 2 04/21/2022 Q3: How often do you have si x or more drinks on one occasion? 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 file Not on file Not on file Last Filed Vital Signs Vital Sign Reading Time Taken Comments Blood Pressure 118/96 07/29/2022 9:56 AM CDT Pulse 72 07/29/2022 9:56 AM CDT Temperature 36.9 C (98.4 F) 11/18/2021 3:33 PM CDT Respiratory Rate 18 07/29/2022 9:56 AM CDT Oxygen Saturation 96% 07/29/2022 9:56 AM CDT Inhaled Oxygen Concentration - - Weight 91.2 kg (201 lb) 07/29/2022 9:56 AM CDT Height 177.8 cm (5' 10 ) 07/29/2022 9:56 AM CDT Body Mass Index 28.84 07/29/2022 9:56 AM CDT Plan of Treatment Not on file Insurance [facility] [place] [facility] [place] [facility]O [place]: [place] [address] [facility] [place] [facility] [place] [facility] Address: [address] COMMUNITY CARE Care Teams Fire Eater Relationship Specialty Start Date End Date Kwasi Manriquez MD [address] [place] [address] PCP - General Family Medicine 11/17/21 Luc Sorensen MD [address] [place] [address] Consulting Physician Urology 11/18/21
--- OUTSIDE RECORDS SUMMARY | 2024-08-29 14:08 | XMS_ITS | Clinical Summary ---
Author Organization [facility] Address [address] [place] [address] Care Team Providers Care Policeman Name Role Phone Kwasi Manriquez MD Primary Care Provider [phone] Luc Sorensen MD Unavailable Allergies No known [...] 03/25/2022 Assessment & Plan (03/29/2022 1:59 PM RAG GRADER): Will switch to Protonix from omeprazole GI [...] (08/23/2018): Added automatically from request for surgery [id number] Immunizations Immunization Administration Dates Next Due Influenza, Quadrivalent, Spl it, Preservative Free, Intramuscular 03/25/2022 Influenza, Unspecified 05/03/2021(Deferr ed: Patient Refused),05/03/2020(Deferred: Patient Refused) Pfizer SARS-CoV-2 Monovalent Vaccination (12+ Yrs) PURPLE 06/14/2020,05/24/2020 Tdap 03/25/2022 Surgical History Surgery Date Site/Laterality Comments URETHRA SURGERY 05/03/2016 - 05/02/2017 NOSE SURGERY 05/03/2008 - 05/02/2009 NOSE SURGERY 05/03/2003 - 05/02/2004 x2 ESOPHAGOGASTRODUODENOSCOPY 04/21/2022 Medical History Medical History Date Comments Hypospadias in male GERD (gastroesophageal reflux disease) Family History Medical History Relation Name Comments Alcohol abuse Father Heart disease Father Hypertension Father Stroke Father fatty liver Father Heart attack Maternal Grandfather Hypertension Maternal Grandfather Hypertension Maternal Grandmother No Known Problems Mother Diabetes type II Paternal Grandfather Hypertension Paternal Grandfather Hypertension Paternal Grandmother Anesthesia problems Neg Hx Relation Name Status Comments Father Alive Maternal Grandfather Maternal Grandmother Alive Mother Alive Other Alive Paternal Grandfather Paternal Grandmother Social History Tobacco Use Types Packs/Day Years [...] on file Legal Sex Male 3:58 PM RAG GRADER Gender Identity Not on file Sexual Orientation Not on file 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 on file Not on file Obstetrics History Last Filed Vital Signs Vital Sign Reading [...] 07/29/2022 9:56 AM CDT Plan of Treatment Health Maintenance Due Date Last Done Comments Hepatitis C Screening 1990 Hepatitis B Screening 01/31/2008 Regular Well Visit/Exam 18-64 11/18/2022 11/18/2021 Depression Screening 03/25/2023 03/25/2022, 11/18/2021 Covid-19 Vaccine ( season) 2024 06/14/2020, 05/24/2020 Influenza Vaccine (Season Ended) 2025 03/25/2022 DTaP/Tdap/Td Vaccine (2 - Td or Tdap) 03/25/2032 03/25/2022 HPV Vaccines Aged Out No longer eligi ble based on patient's age to complete this topic Pneumococcal vaccine <65 Aged Out No longer eligible based on patient's age to complete this topic Varicella Vaccines Discontinued Insurance [facility] CHOICE PLUS [facility] CHOICE PLUS Member Subscriber Plan / Payer (Ef fective 2021-Present) Name:Dann Cazares Relation to Subscriber:Self Name:Dann Cazares Payer ID:[id number] ([facility]) Type:[facility] HMO/PPO Address: [address] COMMUNITY CARE Care Teams Policeman Relationship Specialty Start Date End Date Kwasi Manriquez MD [facility] [address] [place] [address] PCP - General Family Medicine 11/17/21 Luc Sorensen MD [address] [place] [address] Consulting Physician Urology 11/18/21
--- OUTSIDE RECORDS SUMMARY | 2024-08-29 14:08 | XMS_ITS | Clinical Summary ---
Author Organization [facility] Address [address] [place] [address] Care Team Providers Care Employee Health Nurse Name Role Phone Wilma Weiss Primary Care Provider [phone] Source Comments [facility],non-owned Affiliates and Associated Physician Practices is amultiple site organization consisting of ambulatory clinics and hospital sitesin [place], [place], [place] and [place]. This disclosure is being madepursuant to the Care Everywhere program and may not contain all information available regarding this patient. Last updated 18.[facility] [employer] Allergies No known active allergies Medications * Be aware that medications may not be up to date on this document. Alwaysverify current medications with the patient. losartan (Cozaar) 25 MG tablet Take 1 (one) tablet by mouth once daily 12/24/2022 Active pantoprazole EC (Protonix) 40 MG tablet 1 (one) tablet 06/26/2022 Active Social History Tobacco Use Types Packs/Day Years Used Date Smoking Tobacco: Never Assessed Sex and Gender Information Value Date Recorded Sex Assigned at Not on file Legal Sex Male 11:42 AM CDT Gender Identity Not on file Sexual Orientation Not on file Last Filed Vital Signs Vital Sign Reading Time Taken Comments Blood Pressure 130/82 03/15/2023 9:24 AM TACTICAL AIR DEFENSE CONTROLLER Pulse 61 03/15/2023 9:24 AM TACTICAL AIR DEFENSE CONTROLLER Temperature 36.8 C (98.2 F) 03/15/2023 9:24 AM TACTICAL AIR DEFENSE CONTROLLER Respiratory Rate - - Oxygen Saturation 98% 03/15/2023 9:24 AM TACTICAL AIR DEFENSE CONTROLLER Inhaled Oxygen Concentration - - Weight 90.7 kg (200 lb) 03/15/2023 9:24 AM TACTICAL AIR DEFENSE CONTROLLER Height 180.3 cm (5' 11 ) 03/15/2023 9:24 AM TACTICAL AIR DEFENSE CONTROLLER Body Mass Index 27.89 03/15/2023 9:24 AM TACTICAL AIR DEFENSE CONTROLLER Plan of Treatment Health Maintenance Due Date Last Done Comments HIV SCREENING 2005 HEPATITIS C SCREENING 01/26/2008 DTAP/TDAP/TD VACCINES (1 - Tdap) 2009 HEPATITIS B VACCINE (1 of 3 - 19+ 3-dose series) 2009 COVID-19 VACCINE (3 - season) 2024 06/14/2020, 05/24/2020 DEPRESSION SCREENING 05/03/2024 INFLUENZA VACCINE (Season Ended) 2025 03/25/2022, 02/10/2020, 05/31/2019, Additional history exists ZOSTER VACCINE (1 of 2) 01/31/2040 HIB VACCINE Aged Out No longer eligi ble based on patient's age to complete this topic HPV VACCINE Aged Out No longer eligi ble based on patient's age to complete this topic MENINGOCOCCAL (Group B) VACCINE SHARED DECISION-MAKING Aged Out No longer eligible based on patient's age to complete this topic MENINGOCOCCAL GROUPS A/C/Y/W VACCINE Aged Out No longer eligible based on patient's age to complete this topic PNEUMOCOCCAL VACCINE Aged Out No long er eligible based on patient's age to complete this topic Insurance Care Teams Employee Health Nurse Relationship Specialty Start Date End Date Wilma Weiss [address] [place], [place] [address] PCP - General Pediatrics 02/22/23
--- OUTSIDE RECORDS SUMMARY | 2024-08-29 14:08 | XMS_ITS ---
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 [facility] [place] Address [address] [place] [address] Care Team Providers Care Hot Metal Car Operator Name Role Phone TIFFANIE DALE Primary [...] ION RX PLAN Oct 09, 2022 [id number] [phone] ADA GALO PATIENT [facility] [place] GE OF JAYJAY [employer] Oct 09, 2022 [id number] [phone] IRAJ ADA PATIENT [facility] POINT OF SERVICE [place] GE OF [employer] Oct 09, 2022 [id number] [phone] ADA GALO PATIENT Selected Encounter This section includes the information on record at CT for the Encounter. Date/Time Encounter Type Encounter Description Reason Pro vider Source May 24, 2024 05:00 PM Outpatient Encounter ADMIN PAT ACTIVTIES (MASNONCT) IHE Encounter Template Text not used by [facility] Plan of Treatment: Future Appointments (+ 6 months) and Future Tests (+/- 45 days) The Plan of Treatment section includes future care activities for the patient from all [facility]. This section includes future appointments and future orders which are active, pending or scheduled. Future Appointments This section includes appointments that were scheduled to occur 6 months from the date of the Encounter, up to a maximum of 20 appointments. The data comes from all [place] treatment [facility]. Appointment Date/Time Appointment Type Appointme nt Facility Name May 25, 2024 10:00 AM AMBULATORY - PSYCHIATRY [facility] Jun 08, 2024 10:00 AM AMBULATORY - PSYCHIATRY [facility] Jun 26, 2024 10:00 AM AMBULATORY - PSYCHIATRY [facility] Jun 26, 2024 05:00 PM AMBULATORY - PS[facility]CHIATRY [facility] Jun 26, 2024 05:00 PM AMBULATORY - PS[facility]IATRY [facility] Jul 11, 2024 09:30 AM AMBULATORY - PSYCHIATRY [facility] Jul 20, 2024 04:00 PM AMBULATORY - PSYCHIATRY [facility] Jul 20, 2024 04:00 PM AMBULATORY - PS[facility]CHIATRY [facility] Jul 21, 2024 08:30 AM AM[facility]ULATORY - MEDICINE [facility] Jul 31, 2024 02:00 PM AMBULATORY - PSYCHIATRY [facility] Aug 14, 2024 01:00 PM AMBULATORY - PSYCHIATRY [facility] Aug 17, 2024 04:00 PM AMBULATORY - PSYCHIATRY [facility] Aug 17, 2024 04:00 PM AMBULATORY - PS[facility]CHIATRY [facility] Aug 28, 2024 03:00 PM AMBULATORY - PSYCHIATRY [facility] September 18, 2024 03:00 PM AMBULATORY - PSYCHIATRY [facility] September 29, 2024 03:30 PM AMBULATORY - PS[facility]IATRY [facility] September 29, 2024 03:30 PM AMBULATORY - PSYCHIATRY [facility] Encounter Notes: All associated encounter notes This section contains the clinical notes associated to the Encounter. Date/Time Encounter Note(s) Provider Source May 24, 2024 04:53 PM ACCOUNTING OF DISC LOSURES NOTE: LOCAL TITLE: STATE PRESCRIPTION DRUG MONITORING PROGRAM STANDARD TITLE: ACCOUNTING OF DISCLOSURES NOTE DATE OF NOTE: MAY 24, 2024@16:53:56 ENTRY DATE: MAY 24, 2024@16:53:56 AUTHOR: ALEA NEGRON EXP COSIGNER: URGENCY: STATUS: COMPLETED This PDMP query was submitted by Alae Negron. The clinical justification for this PDMP query is to review controlled substances prescribed outside of the [place], and any additional information that may become available, as an important component of standard clinical care, and in accordance with [facility] policy. Patient information was shared with the PDMP [place]. No prescription(s) for controlled substances outside the [place] were found in the last 90 days. /allan/ ALEA NEGRON Psychiatrist V15 Signed: 05/24/2024 16:54 ALEA NEGRON [facility] May 24, 2024 04:41 PM PSYCHIATRY NOTE: LOCAL TITLE: PSYCHIATRY [place] STANDARD TITLE: PSYCHIATRY NOTE DATE OF NOTE: MAY 24, 2024@16:41 ENTRY DATE: MAY 24, 2024@16:41:42 AUTHOR: ALEA NEGRON EXP COSIGNER: URGENCY: STATUS: COMPLETED Encounter was conducted via Telehealth Modality with patient located at home via [facility]. Verbal informed consent was obtained from the at the time of the encounter. Video room locked at time of appointment. Two patient identifiers were utilized for patient identification. address: [address] [place] [address] phone: Primary NOK: SHYAM GALO Relation: UNRELATED FRIEND/ <street address not available> Length of services provided: 25 minutes (15 video, 10 chart review and documentation) Chief complaint: f/u MH med management with diagnoses ADHD, combined type GLORIA with panic attacks r/o mood disorder Subjective- Today, the patient reports: At last appointment continued mirtazapine 30mg QHS for mood, anxiety, sleep. Some increased appetite- monitor. Hold Concerta 18mg QAM for ADHD due to recent heightened anxiety. Continued hydroxyzine 10-20mg TID prn for anxiety symptoms. Started clonazepam 0.25mg PO BID prn for severe anxiety only. He will take only if feels he would otherwise be going to ED. Discussed habit forming potential and r/b/a and potential SEs. Reports has been not too bad actually. Anxiety has lately has actually been pretty good. Shortly after last appointment was having some panic symptoms nothing where I had to go to the hospital and took half a clonazepam. Had previously been going home when feeling overwhelming anxiety at work and taking his lunch break at home, would take a nap and feel better. Feels he responds to the clonazepam fine. Started taking half a pill before work and go through the day without problems. May get anxiety but not to the point has to lay down or go home or worries he is dying. Denies any SEs. Does notice that being off the Concerta has a lot more focus concerns but does not want to restart. Not taking mirtazapine as was having hangover next day. Has not needed to take hydroxyzine. Is continuing therapy and feels this is helpful. 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 DO NOT DRINK ALCOHOL. Indication: FOR PANIC SYMPTOMS 2) HYDROXYZINE HCL 10MG TAB TAKE ONE [...] 12:35 TSH: TSH 1.054 uIU/mL 12/03/2023 09:18 [place]: ____ Depakote: ____ Carbamazepine: No CARBAMAZEPINE EO [...] Well groomed, good eye contact via video, thomas Mood: pretty good actually Affect: slightly restricted but appropriately reactive, less anxious Gait: patient was seated Memory: sufficient [...] prn clonazepam for severe symptoms --Medications: Continue: He has stopped mirtazapine feeling hungover next day with it. He has stopped Concerta due to anxiety He is no longer taking hyroxyzine Continue clonazepam 0.25mg PO daily prn for [...] clinic: f/u next month, sooner prn [facility] agrees to contact the clinic sooner for [...] hour emergency room services, [facility] (917 and press 1 or Text [phone]) and 911. Patient voiced understanding and agreed to utilize these services when needed. /allan/ ALEA NEGRON Psychiatrist V15 Signed: 05/24/2024 17:14 ALEA NEGRON [facility]
--- OUTSIDE RECORDS SUMMARY | 2024-08-29 14:08 | XMS_ITS | Encounter Summary ---
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 Address [address] [place] [address] Care Team Providers Care Sales Enablement Manager Name Role Phone TIFFANIE DALE Primary Care [...] ION RX PLAN Oct 09, 2022 IPBCRXG [phone] ADA GALO PATIENT [facility] [place] [facility] JAYJAY [employer] Oct 09, 2022 [id number] [phone] ADA GALO PATIENT [facility] POINT OF SERVICE [place] GE OF [employer] Oct 09, 2022 [id number] [phone] ADA GALO PATIENT Selected Encounter This section includes the information on record at [place] for the Encounter. Date/Time Encounter Type Encounter Description Reason Provider Source Apr 19, 2024 04:30 PM OFFICE O/P EST MOD 30 MIN MENTAL HEALTH CLINIC - IND ICD-10-CM F41.0 Panic disorder [episodic paroxysmal anxiety] ALEA NEGRON Encounter Template Text not used by VA Assessments - Encounter Diagnoses This section includes the primary and secondary diagnoses documented for the Encounter. Date/Time Primary/Secondary Diagnosis Diagnosis Name Provider Source Apr 19, 2024 04:49 PM PRIMARY Panic disorder [episodic paroxysmal anxiety] ALEA NEGRON [facility] Apr 19, 2024 04:49 PM SECONDARY Attention-deficit hyperactivity disorder, combined type ALEA NEGRON [facility] Apr 19, 2024 04:49 PM SECONDARY Generalized anxiety disorder ALEA NEGRON [facility] Plan of Treatment: Future Appointments (+ 6 months) and Future Tests (+/- 45 days) The Plan of Treatment section includes future care activities for the patient from all [place] [facility]. This section includes future appointments and future orders which are active, pending or scheduled. Future Appointments This section includes appointments that were scheduled to occur 6 months from the date of the Encounter, up to a maximum of 20 appointments. The data comes from all [place] treatment facilities. Appointment Date/Time Appointment Type Appointme nt Facility Name May 01, 2024 11:00 AM [facility] May 24, 2024 05:00 PM AM[facility]ORY [facility]ATRY [facility] May 24, 2024 05:00 PM AMBULATORY - PS[facility]CHIATRY [facility] May 25, 2024 10:00 AM AMBULATORY - PS[facility]CHIATRY [facility] Jun 08, 2024 10:00 AM AMBULATORY - PSYCHIATRY [facility] Jun 26, 2024 10:00 AM [facility] Jun 26, 2024 05:00 PM AMBULATORY - PS[facility]CHIATRY [facility] Jun 26, 2024 05:00 PM AMBULATORY - PS[facility]CHIATRY [facility] Jul 11, 2024 09:30 AM [facility] Jul 20, 2024 04:00 PM AMBULATORY - PS[facility]CHIATRY [facility] Jul 20, 2024 04:00 PM AMBULATORY - PS[facility]CHIATRY [facility] Jul 21, 2024 08:30 AM AMBULATORY - MEDICINE [facility] Jul 31, 2024 02:00 PM [facility] Aug 14, 2024 01:00 PM [facility] Aug 17, 2024 04:00 PM AM[facility]ATORY - [facility]RY [facility] Aug 17, 2024 04:00 PM AMBULATORY - PS[facility]CHIATRY [facility] Aug 28, 2024 03:00 PM AMBULATORY - [facility]IATRY [facility] September 18, 2024 03:00 PM [facility] September 29, 2024 03:30 PM AMBULATORY - PS[facility]CHIATRY [facility] September 29, 2024 03:30 PM AMBULATORY - PS[facility]CHIATRY [facility] Encounter Notes: All associated encounter notes This section contains the clinical notes associated to the Encounter. Date/Time Encounter Note(s) Provider Source Apr 19, 2024 04:18 PM MENTAL HEALTH PHYS ICIAN NOTE: LOCAL TITLE: EK-PHYSICIAN MH STANDARD TITLE: MENTAL HEALTH PHYSICIAN NOTE DATE OF NOTE: APR 19, 2024@16:18 ENTRY DATE: APR 19, 2024@16:18:25 AUTHOR: ALEA NEGRON EXP COSIGNER: URGENCY: STATUS: COMPLETED A telehealth encounter was conducted with ADA GALO MATTHEW ALLEN at [facility] on Apr. Please see [employer] Viewer for progress note, clinical reminders and patient orders. /allan/ ALEA NEGRON MD PSYCHIATRIST Signed: 04/19/2024 16:49 ALEA NEGRON [facility]
--- OUTSIDE RECORDS SUMMARY | 2024-08-29 14:08 | XMS_ITS | Encounter Summary ---
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 Address [address] [place] [address] Care Team Providers Care Computer System Specialist Name Role Phone TIFFANIE DALE Primary Care [...] ION RX PLAN Oct 09, 2022 IPBCRXG [id number] [phone] ADA GALO PATIENT [facility] [place] GE OF [employer]AY[employer]AY [employer] Oct 09, 2022 [id number] [phone] ADA GALO PATIENT [facility] POINT OF SERVICE [place] GE OF [employer] Oct 09, 2022 [id number] [phone] ADA GALO PATIENT Selected Encounter This section includes the information on record at [place] for the Encounter. Date/Time Encounter Type Encounter Description Reason Provider Source May 24, 2024 05:00 PM SYNCH AUDIO-VIDEO EST MOD 30 MENTAL HEALTH CLINIC - IND ICD-10-CM F41.1 Generalized anxiety disorder ALEA NEGRON Encounter Template Text not used by VA Assessments - Encounter Diagnoses This section includes the primary and secondary diagnoses documented for the Encounter. Date/Time Primary/Secondary Diagnosis Diagnosis Name Provider Source May 24, 2024 05:07 PM PRIMARY Generalized anxiety disorder ALEA NEGRON [facility] May 24, 2024 05:07 PM SECONDARY Attention-deficit hyperactivity disorder, combined type ALEA NEGRON [facility] May 24, 2024 05:07 PM SECONDARY Panic disorder [episodic paroxysmal anxiety] ALEA NEGRON [facility] Plan of Treatment: Future Appointments (+ 6 months) and Future Tests (+/- 45 days) The Plan of Treatment section includes future care activities for the patient from all [place] [facility]. This section includes future appointments and future orders which are active, pending or scheduled. Future Appointments This section includes appointments that were scheduled to occur 6 months from the date of the Encounter, up to a maximum of 20 appointments. The data comes from all [place] treatment facilities. Appointment Date/Time Appointment Type Appointme nt Facility Name May 25, 2024 10:00 AM AMBULATORY - PS[facility]CHIATRY [facility] Jun 08, 2024 10:00 AM AMBULATORY - PS[facility]CHI[facility]RY [facility] Jun 26, 2024 10:00 AM AMBULATORY - PS[facility]CHIATRY [facility] Jun 26, 2024 05:00 PM AMBULATORY - PS[facility]IATRY [facility] Jun 26, 2024 05:00 PM AMBULATORY - PS[facility]CHIATRY [facility] Jul 11, 2024 09:30 AM AMBULATORY - PSYCHIATRY [facility] Jul 20, 2024 04:00 PM AMBULATORY - PS[facility]CHIATRY [facility] Jul 20, 2024 04:00 PM AMBULATORY - PSYCHIATRY [facility] Jul 21, 2024 08:30 AM AMBULATORY - MEDICINE [facility] Jul 31, 2024 02:00 PM AMBULATORY - PSYCHIATRY [facility] Aug 14, 2024 01:00 PM AMBULATORY - PSYCHIATRY [facility] Aug 17, 2024 04:00 PM AMBULATORY - PS[facility]CHIATRY [facility] Aug 17, 2024 04:00 PM AMBULATORY - PSYCHIATRY [facility] Aug 28, 2024 03:00 PM AMBULATORY - PSYCHIATRY [facility] September 18, 2024 03:00 PM AMBULATORY - PS[facility]CHIATRY [facility] September 29, 2024 03:30 PM AMBULATORY - PSYCHIATRY [facility] BAUTIST[facility] September 29, 2024 03:30 PM AMBULATORY - PS[facility]CHIATRY [facility] Encounter Notes: All associated encounter notes This section contains the clinical notes associated to the Encounter. Date/Time Encounter Note(s) Provider Source May 24, 2024 04:41 PM MENTAL HEALTH PHYS ICIAN NOTE: LOCAL TITLE: EK-PHYSICIAN MH STANDARD TITLE: MENTAL HEALTH PHYSICIAN NOTE DATE OF NOTE: MAY 24, 2024@16:41 ENTRY DATE: MAY 24, 2024@16:41:19 AUTHOR: ALEA NEGRON EXP COSIGNER: URGENCY: STATUS: COMPLETED A telehealth encounter was conducted with ADA GALO MATTHEW ALLEN at [facility] on May. Please see [employer] Viewer for progress note, clinical reminders and patient orders. /allan/ ALEA NEGRON MD PSYCHIATRIST Signed: 05/24/2024 17:13 ALEA NEGRON [facility]
--- OUTSIDE RECORDS SUMMARY | 2024-08-29 14:08 | XMS_ITS | Encounter Summary ---
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 [facility] Address [address] [place] [address] Care Team Providers Care Osteopathic Neurologist Name Role Phone TIFFANIE DALE Primary Care [...] ION RX PLAN Oct 09, 2022 IPBCRXG [id number] [phone] ADA GALO PATIENT [facility] [place] [facility] JAYJAY [employer] Oct 09, 2022 [id number] [phone] [address] [facility] POINT OF SERVICE [place] GE OF [employer] Oct 09, 2022 [id number] [id number] [phone] IRAJ ADA PATIENT Selected Encounter This section includes the information on record at [place] for the Encounter. Date/Time Encounter Type Encounter Description Reason Provider Source Jul 31, 2024 02:00 PM PSYTX W PT 60 MINUTES MENTAL HEALTH CLINIC - IND ICD-10-CM F41.0 Panic disorder [episodic paroxysmal anxiety] FELISA JIMÉNEZ Jay Encounter Template Text not used by VA Assessments - Encounter Diagnoses This section includes the primary and secondary diagnoses documented for the Encounter. Date/Time Primary/Secondary Diagnosis Diagnosis Name Provider Source Jul 31, 2024 04:20 PM PRIMARY Panic disorder [episodic paroxysmal anxiety] FELISA JIMÉNEZ [facility] Plan of Treatment: Future Appointments (+ 6 months) and Future Tests (+/- 45 days) The Plan of Treatment section includes future care activities for the patient from all [place] [facility]. This section includes future appointments and future orders which are active, pending or scheduled. Future Appointments This section includes appointments that were scheduled to occur 6 months from the date of the Encounter, up to a maximum of 20 appointments. The data comes from all [facility]. Appointment Date/Time Appointment Type Appointme nt Facility Name Aug 14, 2024 01:00 PM AMBULATORY - PS[facility]IATRY [facility] Aug 17, 2024 04:00 PM AMBULATORY - PS[facility]IATRY [facility] Aug 17, 2024 04:00 PM AMBULATORY - PSYCHIATRY [facility] Aug 28, 2024 03:00 PM AMBULATORY - PSYCHIATRY [facility] September 18, 2024 03:00 PM AMBULATORY - PSYCHIATRY [facility] September 29, 2024 03:30 PM AMBULATORY [...] of theEncounter. The data comes from all [facility]. Test Date/Time Test Type Test Details Facility Name Jul 18, 2024 12:00 AM Laboratory - Chemistry Order TSH W/ REFLEX FT4 (STL) GREEN LI-HEP [facility] Jul 18, 2024 12:00 AM Laboratory - Chemistry Order COMPREHENSIVE METABOLIC PANEL GREEN LI/HEP BLD/PLAS [facility] Jul 18, 2024 12:00 AM Laboratory - Chemistry Order VITAMIN D, 25-HYDROXY GOLD/RED SST [facility] Jul 18, 2024 12:00 AM Laboratory - Chemistry Order LIPID PANEL (STL) GREEN LI/HEP BLD/PLAS [facility] Jul 18, 2024 12:00 AM Laboratory - Chemistry Order URINALYSIS (STL-PB) URINE SP [facility] Jul 18, 2024 12:00 AM Laboratory - Chemistry Order CBC BLOOD SP [facility] Jul 18, 2024 12:00 AM Laboratory - Chemistry Order [id number] BLOOD SP [facility] Encounter Notes: All associated encounter notes This section contains the clinical notes associated to the Encounter. Date/Time Encounter Note(s) Provider Source Jul 31, 2024 03:04 PM PSYCHOLOGY NOTE: LOCAL TITLE: PSYCHOLOGY EVIDENCE BASED PSYCHOTHERAPY STL STANDARD TITLE: PSYCHOLOGY NOTE DATE OF NOTE: JUL 31, 2024@15:04 ENTRY DATE: JUL 31, 2024@15:05:04 AUTHOR: TONY JIMÉNEZ COSIGNER: URGENCY: STATUS: COMPLETED PSYCHOLOGY EVIDENCE BASED PSYCHOTHERAPY STL Has ADDENDA NATURE OF ENCOUNTER: CBT: Panic; Mastery of Anxiety and Panic ([employer]el[employer]ren[employer], 2021) TIME SPENT WITH PATIENT (Minutes): 55 minutes DIAGNOSES TREATED THIS VISIT: Panic with agoraphobia; GLORIA SESSION FORMAT: [ ] [id number] [X] Video Telehealth [ ] Phone PROCEDURES: has been advised of risks/benefits to engaging in treatment and agreed to participate with this provider in today's session. No other individuals were present for today's appointment. TELEHEALTH PROCEDURES: Visit was conducted by video using [facility]; virtual medical room was locked for this encounter. Identified 's current location and discussed plan for dispatching of emergency services if needed. Confirmed was in a safe, confidential place and able to participate fully in today's visit by video. was informed of risks/benefits of participating in video telehealth and was notified of right to decline Telehealth services and eligibility for other options. [place] consented to be seen via video. Location: [address] [place] [id number]; Emergency Contact: Amy Galo [phone] SHYAM GALO (UNRELATED FRIEND/OTHER) Phone number: Work phone number: INTERVENTION/TREATMENT PROVIDED: [X]Psychotherapy Assessment [X][place] Centered Treatment Planning [X]Motivational Interviewing-based interventions: Discussed motivation for tx in light of medication working better [X]Psychoeducation: Panic education, including anxiety model; dr previously said if bp is high, go to ER (200/128, hr 135) [X]Resources and Referrals [X]Shared decision-making regarding goals of care [X] Establish rapport [X] Assessment of mental health symptoms: avoids traffic; derealization symptoms, like a movie during panic [X] Identify [place]'s treatment goals [X] Review tx progress and explore options for future care [X] Practiced interoceptives: hyperventilation (30 seconds up to a 5, similar to panic up to a 5 with the philip feeling in the head; 1 min up to a 5, similar 7) [X] HW Review from previous session: No panic attacks to track; Skimmed 8, Reviewed Chapter 5-7, 7.2 for cardiac issues, spoke with therapist phys (low risk for heart attack or stroke) about exercises (within comfort) or restrictions (none) and panic exercises, listed new avoidances: hard cardio: running at gym, ju jiEncore HQu with breaks, perhaps caffeinated energy drink [X] Measurement Based Care Instrument used (embedded in note/separate CPRS note): To be completed during the next visit [] PHQ-9 [X] GLORIA-7 [] BAM [] PCL-5 [] Other: Score: 8 Changes in measure score: recently 10; Baseline GLORIA = 19 [X] Collaboratively discussed PROM outcomes related to assessment and treatment progress. [ ] Not administered this session [ ] Measures not indicated this session. Frequency of administration: [X] Completed symptom review (see Progress Towards Goals) [ ] [place] declined to complete measures this session. [ ] Describe efforts to increase measurement: [X] Measure in Mental Health Hospice Volunteer. [] Sent self-report measures to vet via text or email through [employer] application. Discussed measurement-based care (MBC) and self- monitoring with the [place]. Oriented the to completing MBC through [employer]. Reminded the [place] that the responses are not reviewed in real time and encouraged them to contact this provider or the care team directly with any concerns or questions. Reviewed potential risks (e.g., privacy concerns) and benefits (e.g., ease and convenience). Reviewed clear guidelines on what actions the [place] should take if experiencing an acute MH crisis (i.e., contact the Veterans Crisis Line (VCL), call 911, go to the nearest emergency room, etc.). [place] consents to use the of the [facility] application consistent with the agreed upon parameters (e.g., not to be used for urgent communications). RISK ASSESSMENT: [X] Emergency services: [place] educated/aware of how to access emergency Services; weapons stored in safe [X] No new risk factors relevant to suicide or homicide are reported by the . [] Changes in risk factors identified: [] Suicidal or homicidal ideation/behaviors present: [X] did not appear to be at imminent risk to harm self or others at this time. [place] remains sustainable as an outpatient. [] Additional steps taken to mitigate elevated risk, if indicated: [] [place] is judged in need of further evaluation regarding appropriate/safe level of care. [] *Emergency protocols are initiated. 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 Ecologist visits 06/27 with inappropriate sinus tachycardia, seemingly random, suggested that can exercise (since getting the angiogram and other tests, as high heart rate is not dangerous not going to kill you ), stomach pains (GERD) have improved [X] PROGRESS ON PSYCHOSOCIAL/PSYCHOTHERAPY GOALS/OBJECTIVES: 'S PROBLEM/GOALS/OBJECTIVES FOR TREATMENT, DEVELOPED USING SHARED DECISION-MAKING: Problem: Anxiety; panic attacks are the worst?prevents me from doing anything else Goal: Being able to live in the moment, enjoy the day, not being stuck in past or future; drive far away (concert or road trip); be in public; workout and physically push myself, ju jitsu, not limit myself Clinical Goals: Measurable Treatment Goals #1. GOAL/OBJECTIVES FOR THIS EPISODE OF CARE: Be able to drive long distances to unfamiliar places, workout (pushing self and ju jitsu sparring and competitions), without calling PROGRESS TOWARDS GOAL OR SYMPTOM REVIEW: Currently: working out moderately 3-5 times a week, once had an issue with high heart rate and called , [place] 2-4 times a week; no anxiety medication since taking heart medication; Previous session: Drove to [facility] with colleagues, no issues driving ([place], [place]), increasing exercise; no calling ; Recently: [place]), worked out 3 times, not calling , went to crowded work libertarian, not napping; Recently: less napping and less intense workouts; Baseline: 20 minutes of driving away from home; less intense workouts (walking on treadmill, long breaks between sets); left work libertarian early and called , comfortable at work and home only; flow rolling only #2. GOAL/OBJECTIVES FOR THIS EPISODE OF CARE: More mindful, with less anxiety PROGRESS TOWARDS GOAL OR SYMPTOM REVIEW: Current: More present: 45%, GLORIA-7 = 8; Recent: bit more mindful 40%; Baseline: 25% mindful; GLORIA-7 = 19 Interventions: Below Interpretive Summary: Panic with agoraphobia and cardiac fears TREATMENT PLAN: [X] EBP was discussed for applicable MH disorders (e.g. MDD, Schizophrenia, PTSD). [X] EBP part of care plan (specify) [] [place] declined/deferred EBP at this time. [] EBP not clinically indicated at this time. [X] Individual Psychotherapy. Estimated duration/frequency: CBT for Panic 15 sessions over 36 weeks; begin with education, consider UP INFORMED CONSENT: [X] Engaged in shared decision making discussion about the risks and benefits of receiving psychotherapy/psychosocial interventions, including receiving no intervention. [place] consents to treatment plan. Also discussed limits of confidentiality at the outset of session and consented to services. RESPONSE TO INTERVENTIONS: [X] The participated actively in the current interventions. [ ] Other: agreed to following RECOMMENDATIONS/PLAN: [X] RTC: Date/time/method: 08/14 at 1 pm; 08/28 & 09/18 3 pm vvc (2-4 availability) [ ] Referrals/Interdisciplinary care? [X] Assigned Therapy Tasks: Track panic; Read 8, Review Chapter 5-7, 7.2 for cardiac issues, talk with therapist phys about exercises or restrictions and panic exercises, list new avoidances [X] The [place] continues to agree with the current plan of care and izbwku-ko-iubryz plan. Comments: /allan/ TONY JIMÉNEZ Psychologist [facility] 2 Signed: 07/31/2024 16:20 07/31/2024 ADDENDUM STATUS: COMPLETED [place] also agreed to practice 30-60 seconds of overbreathing. /allan/ TONY JIMÉNEZ Psychologist [facility] 2 Signed: 07/31/2024 16:22 TONY JIMÉNEZ [facility]
--- OUTSIDE RECORDS SUMMARY | 2024-08-29 14:08 | XMS_ITS | Encounter Summary ---
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 [facility] Address [address] [place] [address] Care Team Providers Care Oyster Worker Name Role Phone TIFFANIE DALE Primary [...] ION RX PLAN Oct 09, 2022 IPBCRXG [id number] [phone] ADA GALO PATIENT [facility] [place] GE OF JAYJAY iMotions - Eye Tracking Oct 09, 2022 [id number] [phone] IRAJ ADA PATIENT [facility] POINT OF SERVICE [place] GE OF Riskalyze Oct 09, 2022 [id number] [phone] ADA GALO PATIENT Selected Encounter This section includes the information on record at [place] for the Encounter. Date/Time Encounter Type Encounter Description Reason Pro vider Source Mar 20, 2024 08:00 AM Outpatient Encounter ADMIN PAT ACTIVTIES (MASNONCT) IHE Encounter Template Text not used by [facility] Plan of Treatment: Future Appointments (+ 6 months) and Future Tests (+/- 45 days) The Plan of Treatment section includes future care activities for the patient from all [place] [facility]. This section includes future appointments and future orders which are active, pending or scheduled. Future Appointments This section includes appointments that were scheduled to occur 6 months from the date of the Encounter, up to a maximum of 20 appointments. The data comes from all [place] treatment facilities. Appointment Date/Time Appointment Type Appointme nt Facility Name Mar 27, 2024 10:30 AM AMBULATORY - MEDICINE [facility] Apr 11, 2024 01:00 PM AMBULATORY - PSYCHIATRY [facility] Apr 17, 2024 11:00 AM AMBULATORY - PSYCHIATRY [facility] Apr 19, 2024 04:30 PM AMBULATORY - PSYCHIATRY [facility] Apr 19, 2024 04:30 PM [facility]ORY [facility] May 01, 2024 11:00 AM AMBULATORY - PSYCHIATRY [facility] May 24, 2024 05:00 PM AMBULATORY - PSYCHIATRY [facility] May 24, 2024 05:00 PM AMBULATORY - [facility]IATRY [facility] May 25, 2024 10:00 AM AMBULATORY - PSYCHIATRY [facility] Jun 08, 2024 10:00 AM AMBULATORY - PSYCHIATRY [facility] Jun 26, 2024 10:00 AM AMBULATORY - PSYCHIATRY [facility] Jun 26, 2024 05:00 PM AMBULATORY - PSYCHIATRY [facility] Jun 26, 2024 05:00 PM AMBULATORY - [facility]IATRY [facility] Jul 11, 2024 09:30 AM AMBULATORY - PSYCHIATRY [facility] Jul 20, 2024 04:00 PM AMBULATORY - PS[facility]CHIATRY [facility] Jul 20, 2024 04:00 PM AMBULATORY - [facility]IATRY [facility] Jul 21, 2024 08:30 AM AMBULATORY - MEDICINE [facility] Jul 31, 2024 02:00 PM AMBULATORY - PSYCHIATRY [facility] Aug 14, 2024 01:00 PM AMBULATORY - PSYCHIATRY [facility] Aug 17, 2024 04:00 PM AMBULATORY - PSYCHIATRY [facility] Encounter Notes: All associated encounter notes This section contains the clinical notes associated to the Encounter. Date/Time Encounter Note(s) Provider Source Mar 20, 2024 07:58 AM ACCOUNTING OF DISC LOSURES NOTE: LOCAL TITLE: STATE PRESCRIPTION DRUG MONITORING PROGRAM STANDARD TITLE: ACCOUNTING OF DISCLOSURES NOTE DATE OF NOTE: MAR 20, 2024@07:58:57 ENTRY DATE: MAR 20, 2024@07:58:57 AUTHOR: ALEA NEGRON EXP COSIGNER: URGENCY: STATUS: COMPLETED This PDMP query was submitted by Alea Negron. The clinical justification for this PDMP query is to review controlled substances prescribed outside of the [place], and any additional information that may become available, as an important component of standard clinical care, and in accordance with [facility] policy. Patient information was shared with the PDMP Appriss [place]. No prescription(s) for controlled substances outside the [place] were found in the last 90 days. /allan/ ALEA NEGRON Psychiatrist V15 Signed: 03/20/2024 07:59 ALEA NEGRON [facility] Mar 20, 2024 07:54 AM PSYCHIATRY NOTE: LOCAL TITLE: PSYCHIATRY ST[facility] STANDARD TITLE: PSYCHIATRY NOTE DATE OF NOTE: MAR 20, 2024@07:54 ENTRY DATE: MAR 20, 2024@07:54:49 AUTHOR: ALEA NEGRON EXP COSIGNER: URGENCY: STATUS: COMPLETED Encounter was conducted via Telehealth Modality with patient located at home via [facility]. Verbal informed consent was obtained from the Farrell at the time of the encounter. Video room locked at time of appointment. Two patient identifiers were utilized for patient identification. address: [address] [place] [address] phone: Primary NOK: IRAJSHYAM Relation: UNRELATED FRIEND/ <street address not available> Length of services provided: 55 minutes (25 video, 10 chart review and documentation) Chief complaint: f/u MH med management with diagnoses ADHD, combined type GLORIA with panic attacks r/o mood disorder Subjective- Today, the patient reports: At last appointment continued mirtazapine 30mg QHS for mood, anxiety, sleep. Some increased appetite- monitor. Continued Concerta 18mg QAM for ADHD. Started clonidine 0.1mg PO BID prn for anxiety off label. Referred for individual therapy. Reports doing good , does report at first he was doing better with medication without major panic but still more anxiety than he was used to. Lately however feeling afraid to go to the gym and push himself because of worry about having panic symptoms and that he is going to . Has only gone once and felt uncomfortable and left. Has continue to go to [facility] but being less active and less comfortable overall. Feeling uncomfortable getting away from places he is used to. Not typically having issues at work when busy but if driving around on his own can feel a little weird. Wonders today if he has PTSD or other underlying mental thing and this is why things were set off by being on vacation in [place] which we had discussed last time. Provided some normalization and psychoeducation regarding common response to panic symptoms and steps we are taking to help him move forward. Continuing mirtazapine and Concerta. Has tried the clonidine but it caused ED. Has some concern feeling hungover for an hour recently and wonders if relates to mirtazapine or recently diagnoses VANESSA concerns. He has tried not taking mirtazapine and this helped. He was encouraged to try taking earlier and then if needed try half dose rather than not taking, and if cannot find something tolerable will discuss other options in f/u. He is amenable to trial of hydroxyzine as needed. He also mentioned some friends that did not tolerate escitalopram but did benefit from bupropion and we discussed common indications for this and that it may go either way in targeting anxiety symptoms but if he wants a trial in the future we can consider. 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 4) MIRTAZAPINE 30MG TAB TAKE ONE TABLET BY MOUTH AT ACTIVE BEDTIME TAKE ONE HOUR PRIOR TO BEDTIME. 5) PANTOPRAZOLE NA 40MG EC TAB TAKE [...] 12:35 TSH: TSH 1.054 uIU/mL 12/03/2023 09:18 [employer]: ____ Depakote: ____ Carbamazepine: No CARBAMAZEPINE EO [...] okay Affect: slightly restricted but appropriately reactive, euthymic overall, with anxiety Gait: patient was seated Memory: sufficient to [...] modify as needed every 12 months -Progress: did not tolerate clonidine, changes as below --Medications: Continue: Mirtazapine 30mg QHS for mood, anxiety, sleep. Some increased appetite and morning hangover, he will try taking earlier and if needed half dose. Concerta 18mg QAM for ADHD. Denies SEs. UDS due 12/25 Stop clonidine due to ED. Start hydroxyzine 10-20mg TID prn for anxiety symptoms. Discussed sedation and other common Ses. The patient indicated an informed decision to take medications as described above. The [place]rell was informed that if any new side effects or problems arise, the Clinic should be contacted, or can come in for re- evaluation of medication. --Therapy: he requests a referral for individual therapy, did IPT in past with benefit and feels would be useful to discuss his anxiety and underlying contributing/perpetuating factors --labs/rads/consults: pending therapy referral --Return to clinic: f/u 4-6w, sooner prn The agrees to contact the clinic sooner for any new or worsening symptoms. --Discussed plan as written above with Farrell who verbalized understanding and agreement with plan. Detailed safety plan was discussed with the patient. - would ask for help if needed -All ways to access care discussed with patient including how and when to call the mental health clinic, 24 hour emergency room services, [facility] Crisis [facility] (447 and press 1 or Text [phone]) and 911. Patient voiced understanding and agreed to utilize these services when needed. /allan/ ALEA NEGRON Psychiatrist V15 Signed: 03/20/2024 08:33 ALEA NEGRON [facility]
--- OUTSIDE RECORDS SUMMARY | 2024-08-29 14:08 | XMS_ITS | Clinical Summary ---
Author Organization [facility] Address [address] [place] [address] Care Team Providers Care Environmental Officer Name Role Phone Unavailable Primary Care Provider Unavailabl e Encounters Date Type Department Care Team Description 08/08/2024 External Device Data [facility] ABSTRACTION Provider, Abstract 07/08/2024 External Device Data [facility] ABSTRACTION Provider, Abstract 07/07/2024 External Device Data [facility] ABSTRACTION Provider, Abstract 07/05/2024 External Device Data [facility] ABSTRACTION Provider, Abstract from Last 3 Months Social History Tobacco Use Types Packs/Day Years Used Date Smoking Tobacco: Never Assessed Sex and Gender Information Value Date Recorded Sex Assigned at Not on file Legal Sex Male 9:21 AM CDT Gender Identity Not on file Sexual Orientation Not on file Plan of Treatment Health Maintenance Due Date Last Done Comments INFLUENZA VACCINE (#1) 2023 , 05/31/2019, 02/18/2018, Additional history exists COVID-19 Vaccine ( - 2023- season) 2024 06/14/2020, 05/24/2020 DTAP/TDAP/TD VACCINES (3 - Td or Tdap) 03/25/2032 03/25/2022, 09/17/2010 HEPATITIS B VACCINES Completed 06/17/2011, 05/26/2011, 10/17/2010, Additional history exists HPV VACCINES Aged Out No longer eligi ble based on patient's age to complete this topic Insurance [employer]
--- OUTSIDE RECORDS SUMMARY | 2024-08-29 14:08 | XMS_ITS ---
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 Affairs ([place]) Organization [facility] Address [address] [place] [address] Care Team Providers Care Research Nurse Name Role Phone TIFFANIE DALE Primary Care [...] ION RX PLAN Oct 09, 2022 IPBCRXG [id number] [phone] ADA GALO PATIENT [facility] [place] GE OF JAYJAY Zenedy Oct 09, 2022 [id number] [phone] IRAJ ADA PATIENT [facility] POINT OF SERVICE [place] GE OF Eventable Oct 09, 2022 [id number] [phone] ADA GALO PATIENT Selected Encounter This section includes the information on record at [place] for the Encounter. Date/Time Encounter Type Encounter Description Reason Pro vider Source Aug 17, 2024 04:00 PM Outpatient Encounter ADMIN PAT ACTIVTIES (MASNONCT) IHE Encounter Template Text not used by VA Plan of Treatment: Future Appointments (+ 6 months) and Future Tests (+/- 45 days) The Plan of Treatment section includes future care activities for the patient from all [place] [facility]. This section includes future appointments and future orders which are active, pending or scheduled. Future Appointments This section includes appointments that were scheduled to occur 6 months from the date of the Encounter, up to a maximum of 20 appointments. The data comes from all [facility]. Appointment Date/Time Appointment Type Appointme nt Facility Name Aug 28, 2024 03:00 PM AMBULATORY - PSYCHIATRY [facility] September 18, 2024 03:00 PM AMBULATORY - PSYCHIATRY [facility] September 29, 2024 03:30 PM AMBULATORY - PS[facility]CHIATRY [facility] September 29, 2024 03:30 PM AMBULATORY - PSYCHIATRY [facility] Active, Pending, and Scheduled Orders This section includes a listing of several types of active, pending, and scheduled orders, including clinic medications orders, diagnostic test orders, procedure orders and consult orders; where the start date of the order is 45 days before the date of the Encounter or 45 days after the date of theEncounter. The data comes from all [facility]. Test Date/Time Test Type Test Details Facility Name Jul 18, 2024 12:00 AM Laboratory - Chemistry Order TSH W/ REFLEX FT4 (STL) GREEN LI-HEP PLASMA [facility] Jul 18, 2024 12:00 AM Laboratory - Chemistry Order VITAMIN D, 25-HYDROXY GOLD/RED SST SERUM [facility] Jul 18, 2024 12:00 AM Laboratory - Chemistry Order LIPID PANEL (STL) GREEN LI/HEP BLD/PLAS [facility] Jul 18, 2024 12:00 AM Laboratory - Chemistry Order URINALYSIS (STL-PB) URINE [facility] Jul 18, 2024 12:00 AM Laboratory - Chemistry Order CBC BLOOD [facility] Jul 18, 2024 12:00 AM Laboratory - Chemistry Order COMPREHENSIVE METABOLIC PANEL GREEN LI/HEP BLD/PLAS PLASMA [facility] Jul 18, 2024 12:00 AM Laboratory - Chemistry Order HGA1C BLOOD [facility] Encounter Notes: All associated encounter notes This section contains the clinical notes associated to the Encounter. Date/Time Encounter Note(s) Provider Source Aug 17, 2024 03:43 PM ACCOUNTING OF DISC LOSURES NOTE: LOCAL TITLE: STATE PRESCRIPTION DRUG MONITORING PROGRAM STANDARD TITLE: ACCOUNTING OF DISCLOSURES NOTE DATE OF NOTE: AUG 17, 2024@15:43:21 ENTRY DATE: AUG 17, 2024@15:43:21 AUTHOR: JONO NEGRON EXP COSIGNER: URGENCY: STATUS: COMPLETED This PDMP query was submitted by Jono Negron. The clinical justification for this PDMP query is to review controlled substances prescribed outside of the [facility], and any additional information that may become available, as an important component of standard clinical care, and in accordance with [facility] policy. Patient information was shared with the PDMP Appriss [place]. No prescription(s) for controlled substances outside the [facility] were found in the last 90 days. /allan/ JONO NEGRON Psychiatrist V15 Signed: 08/17/2024 15:[address] [facility] Aug 17, 2024 03:42 PM PSYCHIATRY NOTE: LOCAL TITLE: PSYCHIATRY STL STANDARD TITLE: PSYCHIATRY NOTE DATE OF NOTE: AUG 17, 2024@15:42 ENTRY DATE: AUG 17, 2024@15:42:10 AUTHOR: JONO NEGRON EXP COSIGNER: URGENCY: STATUS: COMPLETED Encounter was conducted via Telehealth Modality with patient located at home via [facility]. Verbal informed consent was obtained from the [place] at the time of the encounter. Video room locked at time of appointment. Two patient identifiers were utilized for patient identification. address: [address] [place] [address] phone: Primary NOK: SHYAM GALO Relation: UNRELATED [...] sleep so will not discontinue for now Reports I was pretty good for a while last couple of weeks have been okay. Was at a [employer] course a few days ago and was moving around and I got into my head about feeling bad, I started to spiral and had to leave early. Continuing since then to get into my head. That tends to happen, I'll be fine for a while and then get in my head. Prior to this was getting to the gym more and being more active and doing better overall. Normalized his difficulty and reinforced applying what he has been working on in therapy. Discussed doing over-breathing I don't really have an issue with that. Trying to retrain my train of thought which helps. I know this all now but I have a really hard time convincing myself of it once my brain gets into freakout mode. Discussed potentially using some apps to help when his brain doesn't want to cooperate. He also notes that distractions can be helpful if he gets fully engaged in something else and we explore this a bit. With guidance from therapy provider has been trying to do something physical after having increased anxiety rather than avoiding activity. Does feel like nadolol helped for a while it was doing a pretty good job. More recently I just don't feel right, my heart isn't even going fast. Next month has to do annual PT test for work and has anxiety about this. 400m run with and without gas mask, situps, pushups, conner carry. Encouraged to try doing some trial runs. Also going out of town for a week and nervous about this. Overall feels his anxiety is still better but with spikes of some panic not to the point where I have to go to the ER , he does get frustrated by little setbacks. Has been trying not to take the clonazepam and has not take for a few weeks. Rarely taking mirtazapine. Trying to do my best to do things without medication. Still some things he avoids or is hesitant about doing and wants to continue to work towards expanding his activity. Does not want to change anything with medications. 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 [employer] Housing: with Relationship status: Children: denied Any concern for safety/domestic violence: denies [place] [facility] [place] denied Combat: deployed to [place] 2011 Substance use: tobacco: denied alcohol: heavy [...] Active Non-VA Medications Status = 1) Non-VA NADOLOL 20MG TAB 20MG BY MOUTH ONCE A DAY ACTIVE Indication: UNKNOWN 2) Non-VA NAPROXEN 500MG TAB 500MG BY [...] 12:35 TSH: TSH 1.054 uIU/mL 12/03/2023 09:18 [place]: ____ Depakote: ____ Carbamazepine: No CARBAMAZEPINE EO [...] okay Affect: slightly restricted but appropriately reactive, some anxiety Gait: patient was seated Memory: sufficient to report recent events Attention/concentration: sufficient for conversation Muscle tone/strength: sufficient to sit independently Speech: fluent, normal rate, tone Thought process: goal directed conversation Fund of Knowledge: Appropriate/good Associations: coherent Thought content: Denies SI, HI and AVH. Judgment and insight: Both fair Therapy: >16min supportive with some CBT based interventions for anxiety Assessment: ADHD, combined type GLORIA with panic [...] modify as needed every 12 months -Progress: he does not want to change anything currently --Medications: Continue: He has stopped mirtazapine feeling [...] to take medications as described above. The [place] was informed that if any new side [...] hour emergency room services, [facility] (377 and press 1 or Text [phone]) and 911. Patient voiced understanding and agreed to utilize these services when needed. /allan/ JONO NEGRON Psychiatrist V15 Signed: 08/17/2024 16:[address] [facility]
--- OUTSIDE RECORDS SUMMARY | 2024-08-29 14:08 | XMS_ITS | Encounter Summary ---
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 [place] [facility] [place] Organization [facility] [place] Address [address] [place] [address] Care Team Providers Care Inward Toll Operator Name Role Phone TIFFANIE DALE Primary [...] ION RX PLAN Oct 09, 2022 IPBCRXG [id number] [phone] ADA GALO PATIENT [facility] [place] GE OF JAYJAY [email or web address] Oct 09, 2022 [id number] [phone] ADA GALO PATIENT [facility] POINT OF SERVICE [place] GE OF Moz Oct 09, 2022 [id number] [phone] ADA GALO PATIENT Selected Encounter This section includes the information on record at [place] for the Encounter. Date/Time Encounter Type Encounter Description Reason Provider Source Feb 17, 2024 08:00 AM OFFICE O/P [place] 60 MIN [facility] - IND ICD-10-CM F41.1 Generalized anxiety disorder ALEA NEGRON Encounter Template Text not used by [facility] Assessments - Encounter Diagnoses This section includes the primary and secondary diagnoses documented for the Encounter. Date/Time Primary/Secondary Diagnosis Diagnosis Name Provider Source Feb 17, 2024 08:30 AM PRIMARY Generalized anxiety disorder ALEA NEGRON [facility] Feb 17, 2024 08:30 AM SECONDARY Attention-deficit hyperactivity disorder, combined type ALEA NEGRON [facility] Feb 17, 2024 08:30 AM SECONDARY Panic disorder [episodic paroxysmal anxiety] ALEA NEGRON [facility] Plan of Treatment: Future Appointments (+ 6 months) and Future Tests (+/- 45 days) The Plan of Treatment section includes future care activities for the patient from all [place] treatment[facility]. This section includes future appointments and future [...] 20, 2024 08:00 AM AMBULATORY - PSYCHIATRY [facility] Mar 20, 2024 08:00 AM AMBULATORY - [facility]IATRY [facility] Mar 27, 2024 10:30 AM AMBULATORY - MEDICINE [facility] Apr 11, 2024 01:00 PM AMBULATORY - PSYCHIATRY [facility] Apr 17, 2024 11:00 AM AMBULATORY - PSYCHIATRY [facility] Apr 19, 2024 04:30 PM AMBULATORY - PSYCHIATRY [facility] Apr 19, 2024 04:30 PM AMBULATORY - PSYCHIATRY [facility] May 01, 2024 11:00 AM AMBULATORY - PSYCHIATRY [facility] May 24, 2024 05:00 PM AMBULATORY - PSYCHIATRY [facility] May 24, 2024 05:00 PM AMBULATORY - PS[facility]CHIATRY [facility] May 25, 2024 10:00 AM AMBULATORY - PSYCHIATRY [facility] Jun 08, 2024 10:00 AM AMBULATORY - PSYCHIATRY [facility] Jun 26, 2024 10:00 AM AMBULATORY - PSYCHIATRY [facility] Jun 26, 2024 05:00 PM AMBULATORY - PSYCHIATRY [facility] Jun 26, 2024 05:00 PM AMBULATORY - PS[facility]CHIATRY [facility] Jul 11, 2024 09:30 AM AMBULATORY - PSYCHIATRY [facility] Jul 20, 2024 04:00 PM AMBULATORY - PSYCHIATRY [facility] Jul 20, 2024 04:00 PM AMBULATORY - PS[facility]CHIATRY [facility] Jul 21, 2024 08:30 AM AMBULATORY - MEDICINE [facility] Jul 31, 2024 02:00 PM AMBULATORY - PSYCHIATRY [facility] Encounter Notes: All associated encounter notes This section contains the clinical notes associated to the Encounter. Date/Time Encounter Note(s) Provider Source Feb 17, 2024 07:27 AM MENTAL HEALTH PHYS ICIAN NOTE: LOCAL TITLE: EK-PHYSICIAN MH STANDARD TITLE: MENTAL HEALTH PHYSICIAN NOTE DATE OF NOTE: FEB 17, 2024@07:27 ENTRY DATE: FEB 17, 2024@07:28:01 AUTHOR: ALEA NEGRON EXP COSIGNER: URGENCY: STATUS: COMPLETED A telehealth encounter was conducted with ADA GALO MATTHEW ALLEN at [facility] on Jan. Please see [facility] Viewer for progress note, clinical reminders and patient orders. /allan/ ALEA NEGRON MD PSYCHIATRIST Signed: 02/17/2024 08:31 [facility] NEGR[facility]
--- OUTSIDE RECORDS SUMMARY | 2024-08-29 14:08 | XMS_ITS | Encounter Summary ---
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 Address [address] [place] [id number] Care Team Providers Care Loss Prevention Supervisor Name Role Phone TIFFANIE DALE Primary [...] ION RX PLAN Oct 09, 2022 IPBCRXG [id number] [phone] ADA GALO PATIENT [facility] [place] [facility] JAYJAY K[employer] Oct 09, 2022 [id number] [phone] ADA GALO PATIENT [facility] POINT OF SERVICE [place] GE OF Syn[employer]a Oct 09, 2022 [id number] [phone] ADA GALO PATIENT Selected Encounter This section includes the information on record at [place] for the Encounter. Date/Time Encounter Type Encounter Description Reason Provider Source Mar 20, 2024 08:00 AM OFFICE O/P EST MOD 30 MIN [facility] - IND ICD-10-CM F41.1 Generalized anxiety disorder ALEA NEGRON Encounter Template Text not used by [facility] Assessments - Encounter Diagnoses This section includes the primary and secondary diagnoses documented for the Encounter. Date/Time Primary/Secondary Diagnosis Diagnosis Name Provider Source Mar 20, 2024 08:26 AM PRIMARY Generalized anxiety disorder ALEA NEGRON [facility] Mar 20, 2024 08:26 AM SECONDARY Attention-deficit hyperactivity disorder, combined type ALEA NEGRON [facility] Mar 20, 2024 08:26 AM SECONDARY Panic disorder [episodic paroxysmal anxiety] ALEA NEGRON [facility] Plan of Treatment: Future Appointments (+ 6 months) and Future Tests (+/- 45 days) The Plan of Treatment section includes future care activities for the patient from all [place] [facility]. This section includes future appointments and future orders which are active, pending or scheduled. Future Appointments This section includes appointments that were scheduled to occur 6 months from the date of the Encounter, up to a maximum of 20 appointments. The data comes from all [place] treatment facilities. Appointment Date/Time Appointment Type Appointme nt Facility Name Mar 27, 2024 10:30 AM AMBULATORY - MEDICINE [facility] Apr 11, 2024 01:00 PM AMBULATORY - PSYCHIATRY [facility] Apr 17, 2024 11:00 AM AMBULATORY - PSYCHIATRY [facility] Apr 19, 2024 04:30 PM AMBULATORY - PS[facility]CHIATRY [facility] Apr 19, 2024 04:30 PM AMBULATORY - PSYCHIATRY A[facility]LIO MICHELE [facility] May 01, 2024 11:00 AM AMBULATORY - PSYCHIATRY [facility] May 24, 2024 05:00 PM AMBULATORY - PS[facility]CHIATRY [facility] May 24, 2024 05:00 PM AMBULATORY - PSYCHIATRY [facility] May 25, 2024 10:00 AM AMBULATORY - PSYCHIATRY [facility] Jun 08, 2024 10:00 AM AMBULATORY - PSYCHIATRY [facility] Jun 26, 2024 10:00 AM AMBULATORY - PSYCHIATRY [facility] Jun 26, 2024 05:00 PM AMBULATORY - PS[facility]CHIATRY [facility] Jun 26, 2024 05:00 PM AMBULATORY - PSYCHIATRY [facility] BAUTISTA [facility] Jul 11, 2024 09:30 AM AMBULATORY - PSYCHIATRY [facility] Jul 20, 2024 04:00 PM AMBULATORY - PSYCHIATRY [facility] Jul 20, 2024 04:00 PM AMBULATORY - PSYCHIATRY AURELIO BAUTISTA [facility] [facility] Jul 21, 2024 08:30 AM AMBULATORY - MEDICINE [facility] Jul 31, 2024 02:00 PM AMBULATORY - PSYCHIATRY [facility] Aug 14, 2024 01:00 PM AMBULATORY - PS[facility]CHIATRY [facility] Aug 17, 2024 04:00 PM AMBULATORY - PSYCHIATRY [facility] Encounter Notes: All associated encounter notes This section contains the clinical notes associated to the Encounter. Date/Time Encounter Note(s) Provider Source Mar 20, 2024 07:54 AM MENTAL HEALTH PHYS ICIAN NOTE: LOCAL TITLE: EK-PHYSICIAN MH STANDARD TITLE: MENTAL HEALTH PHYSICIAN NOTE DATE OF NOTE: MAR 20, 2024@07:54 ENTRY DATE: MAR 20, 2024@07:54:59 AUTHOR: ALEA NEGRON EXP COSIGNER: URGENCY: STATUS: COMPLETED A telehealth encounter was conducted with ADA GALO MATTHEW ALLEN at [facility] on Mar. Please see Urbasolar for progress note, clinical reminders and patient orders. /allan/ ALEA NEGRON MD PSYCHIATRIST Signed: 03/20/2024 08:27 ALEA NEGRON [facility]
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
--- OUTSIDE RECORDS SUMMARY | 2024-08-29 14:08 | XMS_ITS | Encounter Summary ---
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 Address [address] [place] [address] Care Team Providers Care Executive Communications Manager Name Role Phone TIFFANIE DALE Primary [...] ION RX PLAN Oct 09, 2022 IPBCRXG [id number] [phone] ADA GALO PATIENT [facility] [place] GE OF JAYJAY [employer] Oct 09, 2022 [id number] [phone] ADA GALO PATIENT [facility] POINT OF SERVICE [place] GE OF [employer] Oct 09, 2022 [id number] [phone] ADA GALO PATIENT Selected Encounter This section includes the information on record at [place] for the Encounter. Date/Time Encounter Type Encounter Description Reason Provider Source Jul 20, 2024 04:00 PM SYNCH AUDIO-VIDEO EST MOD 30 MENTAL HEALTH CLINIC - IND ICD-10-CM F41.1 Generalized anxiety disorder ALEA NEGRON Encounter Template Text not used by [facility] Assessments - Encounter Diagnoses This section includes the primary and secondary diagnoses documented for the Encounter. Date/Time Primary/Secondary Diagnosis Diagnosis Name Provider Source Jul 20, 2024 04:01 PM PRIMARY Generalized anxiety disorder ALEA NEGRON [facility] Jul 20, 2024 04:01 PM SECONDARY Attention-deficit hyperactivity disorder, combined type ALEA NEGRON [facility] Jul 20, 2024 04:01 PM SECONDARY Panic disorder [episodic paroxysmal anxiety] ALEA NEGRON [facility] Plan of Treatment: Future Appointments (+ 6 months) and Future Tests (+/- 45 days) The Plan of Treatment section includes future care activities for the patient from all [place] [facility]. This section includes future appointments and future orders which are active, pending or scheduled. Future Appointments This section includes appointments that were scheduled to occur 6 months from the date of the Encounter, up to a maximum of 20 appointments. The data comes from all [facility]. Appointment Date/Time Appointment Type Appointme nt Facility Name Jul 21, 2024 08:30 AM AMBULATORY - MEDICINE [facility] Jul 31, 2024 02:00 PM AMBULATORY - PSYCHIATRY [facility] Aug 14, 2024 01:00 PM AMBULATORY - PSYCHIATRY [facility] Aug 17, 2024 04:00 PM AMBULATORY - PSYCHIATRY [facility] Aug 17, 2024 04:00 PM AMBULATORY - PSYCHIATRY MICHELE CHEN [facility] [facility] Aug 28, 2024 03:00 PM AMBULATORY - PSYCHIATRY [facility] September 18, 2024 03:00 PM AMBULATORY - PSYCHIATRY [facility] September 29, 2024 03:30 PM AMBULATORY - PSYCHIATRY MICHELE CHEN [facility] September 29, 2024 03:30 PM AMBULATORY - PSYCHIATRY [facility] Active, Pending, and Scheduled Orders This section includes a listing of several types of active, pending, and scheduled orders, including clinic medications orders, diagnostic test orders, procedure orders and consult orders; where the start date of the order is 45 days before the date of the Encounter or 45 days after the date of theEncounter. The data comes from all [facility]. Test Date/Time Test Type Test Details Facility Name Jul 18, 2024 12:00 AM Laboratory - Chemistry Order TSH W/ REFLEX FT4 (STL) GREEN LI-HEP PLASMA [facility] Jul 18, 2024 12:00 AM Laboratory - Chemistry Order COMPREHENSIVE METABOLIC PANEL GREEN LI/HEP BLD/PLAS PLAS[facility] Jul 18, 2024 12:00 AM Laboratory - Chemistry Order VITAMIN D, 25-HYDROXY GOLD/RED SST SERUM SP [facility] Jul 18, 2024 12:00 AM Laboratory - Chemistry Order LIPID PANEL (STL) GREEN LI/HEP BLD/PLAS PLASMA SP ONCE [facility] Jul 18, 2024 12:00 AM Laboratory - Chemistry Order URINALYSIS (STL-PB) URINE SP [facility] Jul 18, 2024 12:00 AM Laboratory - Chemistry Order CBC BLOOD [facility] Jul 18, 2024 12:00 AM Laboratory - Chemistry Order [id number] BLOOD [facility] Encounter Notes: All associated encounter notes This section contains the clinical notes associated to the Encounter. Date/Time Encounter Note(s) Provider Source Jul 20, 2024 03:54 PM MENTAL HEALTH PHYS ICIAN NOTE: LOCAL TITLE: EK-PHYSICIAN STANDARD TITLE: MENTAL HEALTH PHYSICIAN NOTE DATE OF NOTE: JUL 20, 2024@15:54 ENTRY DATE: JUL 20, 2024@15:54:33 AUTHOR: ALEA NEGRON EXP COSIGNER: URGENCY: STATUS: COMPLETED A telehealth encounter was conducted with ADA GALO MATTHEW ALLEN at [facility] on Jul. Please see [employer] Viewer for progress note, clinical reminders and patient orders. /allan/ ALEA NEGRON MD PSYCHIATRIST Signed: 07/20/2024 16:04 ALEA NEGRON [facility]
--- OUTSIDE RECORDS SUMMARY | 2024-08-29 14:08 | XMS_ITS | Encounter Summary ---
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 description of his past seems much more consistent with significant ADHD with impulsivity and anxiety which are often comorbid. We can look to provide some hydroxyzine if needed in the interim Encouraged continued abstinence from alcohol Ordered urine drug screen, TSH, free T4, total T3 (with anxiety, panic and reporting loose stools and heat intolerance) in addition to labs already ordered by PCP. Blood work ordered by this physician looked good. All other lab work by PCP look good except for vitamin D was low. Will defer treatment to PCP, but of note, new large study again emphasizing the correlation between low vitamin D and mood disruption. Vitamin D was 21.4 in August and placed on vitamin D supplement. Would inquire about compliance and if compliant suggest other more aggressive treatment or workup for malabsorption etc per PCP discretion. Will tag PCP and appreciate assistance with this 's care. has upcoming sleep study consult, encouraged attendance C-SSRS completed day of visit Continue with psychotherapist Follow-up 6 weeks or sooner if needed INTERVENTIONS: We discussed alternatives to treatment, including no treatment, as well as risks, benefits, side effects. The patient/guardian understood and consented to treatment provided. Hartly is new to team. Provided with an overview of the interdisciplinary team and available services. REFERRALS: Psychotherapy/psychosocial interventions considered/discussed. INSTRUCTIONS GIVEN TO PATIENT/FAMILY: Report medication side effects promptly No alcohol/illicit drug use with medication Exercise caution with driving/use of machinery Monitor for sedation with use of the medication and if needed avoid use in situations where decreased level of alertness could potentially be dangerous Follow up with Primary Care Provider If symptoms get worse, call clinic or Emergency Room as appropriate Provided orientation to the inter-disciplinary team and ways to access crisis/emergency care Suicide Screen: C-SSRS Screening Orange-Suicide Severity Rating Scale (C-SSRS Screener) 1. Over [...] required due to responses to other questions. tagging PCP Ordered urine drug screen, TSH, free T4, total T3 (with anxiety, panic and reporting frequent loose stools and heat intolerance) in addition to labs already ordered by PCP. Blood work ordered by this physician looked good. All other lab work by PCP look good except for vitamin D deficiency. Will defer treatment to PCP, but of note, new high-quality evidence again emphasizing the correlation between vitamin D deficiency and mood disruption. Vitamin D was 21.4 in August 2023 and placed on vitamin D supplement by PCP. Would inquire about compliance and if compliant suggest either more aggressive treatment or workup for malabsorption etc per PCP discretion. Will tag PCP and appreciate assistance with this 's care. /es/ ADA GARCIA Staff Physician / Psychiatrist [facility] Signed: 12/03/2023 18:56 Receipt Acknowledged By: 12/13/2023 09:10 /es/ Tiffanie Dale MD Staff Physician 12/06/2023 08:00 /es/ Claudia Wang, PhD Psychologist 12/06/2023 08:21 /es/ Asmita Perez, Ph.D. Clinical Psychologist ADA GARCIA [facility]
--- OUTSIDE RECORDS SUMMARY | 2024-08-29 14:08 | XMS_ITS | Encounter Summary ---
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 Address [address] [place] [address] Care Team Providers Care Corporate Tax Manager Name Role Phone TIFFANIE DALE Primary [...] ION RX PLAN Oct 09, 2022 [id number] [phone] ADA GALO PATIENT [facility] [place] [facility] [employer] Oct 09, 2022 [id number] [phone] PEEIRISHROSETTEEW PATIENT [facility] POINT OF SERVICE [place] OF [employer] Oct 09, 2022 [id number] [phone] IRAJ ADA PATIENT Selected Encounter This section includes the information on record at [place] for the Encounter. Date/Time Encounter Type Encounter Description Reason Provider Source Aug 28, 2024 03:00 PM PSYTX W PT 60 MINUTES [facility] - IND ICD-10-CM F41.0 Panic disorder [episodic paroxysmal anxiety] FELISA JIMÉNEZ Encounter Template Text not used by [facility] Assessments - Encounter Diagnoses This section includes the primary and secondary diagnoses documented for the Encounter. Date/Time Primary/Secondary Diagnosis Diagnosis Name Provider Source Aug 28, 2024 04:16 PM PRIMARY Panic disorder [episodic paroxysmal anxiety] FELISA JIMÉNEZ [facility] Plan of Treatment: Future Appointments (+ 6 months) and Future Tests (+/- 45 days) The Plan of Treatment section includes future care activities for the patient from all [place] [facility]. This section includes future appointments and future orders which are active, pending or scheduled. Future Appointments This section includes appointments that were scheduled to occur 6 months from the date of the Encounter, up to a maximum of 20 appointments. The data comes from all [facility]. Appointment Date/Time Appointment Type Appointme nt Facility Name September 18, 2024 03:00 PM AMBULATORY - [facility]RY [facility] September 29, 2024 03:30 PM AMBULATORY - PS[facility]IATRY [facility] September 29, 2024 03:30 PM [facility]RY [facility] Active, Pending, and Scheduled Orders This section includes a listing of several types of active, pending, and scheduled orders, including clinic medications orders, diagnostic test orders, procedure orders and consult orders; where the start date of the order is 45 days before the date of the Encounter or 45 days after the date of theEncounter. The data comes from all [facility]. Test Date/Time Test Type Test Details Facility Name Jul 18, 2024 12:00 AM Laboratory - Chemistry Order TSH W/ REFLEX FT4 (STL) GREEN LI-HEP PLASMA [facility] Jul 18, 2024 12:00 AM Laboratory - Chemistry Order VITAMIN D, 25-HYDROXY GOLD/RED SST SERUM [facility] Jul 18, 2024 12:00 AM Laboratory - Chemistry Order COMPREHENSIVE METABOLIC PANEL GREEN LI/HEP BLD/PLAS PLASMA [facility] Jul 18, 2024 12:00 AM Laboratory - Chemistry Order LIPID PANEL (STL) GREEN LI/HEP BLD/PLAS PLASMA [facility] Jul 18, 2024 12:00 AM Laboratory - Chemistry Order URINALYSIS (STL-PB) URINE [facility] Jul 18, 2024 12:00 AM Laboratory - Chemistry Order HGA1C BLOOD [facility] Jul 18, 2024 12:00 AM Laboratory - Chemistry Order CBC BLOOD SP [facility] Encounter Notes: All associated encounter notes This section contains the clinical notes associated to the Encounter. Date/Time Encounter Note(s) Provider Source Aug 28, 2024 04:15 PM PSYCHOLOGY NOTE: LOCAL TITLE: PSYCHOLOGY [facility] STANDARD TITLE: PSYCHOLOGY NOTE DATE OF NOTE: AUG 28, 2024@16:15 ENTRY DATE: AUG 28, 2024@16:15:22 AUTHOR: TONY IJMÉNEZ COSIGNER: URGENCY: STATUS: COMPLETED NATURE OF ENCOUNTER: CBT: Panic; Mastery of Anxiety and Panic (Cornelio & Seren[employer], 2021) TIME SPENT WITH PATIENT (Minutes): 55 minutes DIAGNOSES TREATED THIS VISIT: Panic with agoraphobia 9; GLORIA SESSION FORMAT: [ ] Piod-xq-Oasq [X] Video Telehealth [ ] Phone PROCEDURES: has been advised of risks/benefits to engaging in treatment and agreed to participate with this provider in today's session. No other individuals were present for today's appointment. TELEHEALTH PROCEDURES: Visit was conducted by video using [employer]; virtual medical room was locked for this encounter. Identified 's current location and discussed plan for dispatching of emergency services if needed. Confirmed Dagmar was in a safe, confidential place and able to participate fully in today's visit by video. was informed of risks/benefits of participating in video telehealth and was notified of right to decline Telehealth services and eligibility for other options. Dagmar consented to be seen via video. Location: [address] [place] [address]; Emergency Contact: Amy Galo [phone] SHYAM GALO (UNRELATED FRIEND/OTHER) Phone number: Work phone number: INTERVENTION/TREATMENT PROVIDED: SESSION CONTENT: There are four main sections to the Mastery of Your Anxiety and Panic, Fourth Edition (MAP IV), Workbook: PART I: BASICS (Chapter 2 Learning to Record Panic and Anxiety, Chapter 3 Negative Cycles of Panic and Agoraphobia, Chapter 4 Panic Attacks Are Not Harmful, PART II: COPING SKILLS (Chapter 5 Establishing Your Hierarchy of Agoraphobia Situations, Chapter 6 Breathing Skills, Chapter 7 Thinking Skills); PART III: EXPOSURE TO FEARED SYMPTOMS AND SITUATIONS ( Chapter 8 Facing Physical Symptoms, Chapter 9 Facing Agoraphobia Situations, and Chapter 10 Involving Others); PART IV: PLANNING FOR THE FUTURE (Chapter 11 Medications & Chapter 12 Accomplishments, Maintenance, and Relapse Prevention ). In this session, we reviewed the Basics, and it involves (a) information and education designed to correct misinformation and misinterpretations of somatic sensations and of panic and anxiety; and (b) self-recording, which is intended to enhance objective self-awareness and a personal personnel research scientist approach to panic and anxiety. Practiced with rational responses: Scary not dangerous; uncomfortable but doable. This session focused on problem-solving behavioral exposures and reviewing techniques for coping skills. Discussed the ability to handle the sensations of panic and using mindfulness as a coping skill. Reviewed breathing, and mindful eating as a coping skill to promote comfort. Discussed and practiced interoceptive exercises: Hyperventilation 1 min, 1, similarity, 2-3. [X]Psychotherapy Assessment [X]Dagmar Centered Treatment Planning [X]Motivational Interviewing-based interventions: Discussed motivation for tx in light of medication working better [X]Psychoeducation: Panic education, including anxiety model; dr previously said if bp is high, go to ER (200/128, hr 135); I can refocus on what I am doing; Scary not dangerous [X]Resources and Referrals [X]Shared decision-making regarding goals of care [X] Establish rapport [X] Assessment of mental health symptoms: avoids traffic; derealization symptoms, like a movie during panic [X] Identify 's treatment goals [X] Review tx progress and explore options for future care [X] Practiced interoceptives: Tracked panic: up to a 7-8 with fears of something wrong with my head or hbp; Reviewed 7.2 for cardiac issues, list new avoidances; practiced overbreathing 60 seconds 1 [X] HW Review from previous session: Tracked panic; Read 8 and did 7.2 for cardiac issues, administrative associate said no restrictions and panic exercises, list new avoidances; practiced overbreathing 60 seconds, up to 4-5 [] Measurement Based Care Instrument used (embedded in note/separate CPRS note): To be completed during the next visit [] PHQ-9 [] GLORIA-7 [] BAM [] PCL-5 [] Other: Score: Changes in measure score: recently 8, 10; Baseline GLORIA = 19 [] Collaboratively discussed PROM outcomes related to assessment and treatment progress. [X] Not administered this session [ ] Measures not indicated this session. Frequency of administration: [X] Completed symptom review (see Progress Towards Goals) [ ] declined to complete measures this session. [ ] Describe efforts to increase measurement: [] Measure in Mental Health [employer]. [] Sent self-report measures to vet via text or email through [employer] application. Discussed measurement-based care (MBC) and self- monitoring with the . Oriented the Dagmar to completing MBC through [employer] Touch. Reminded the that the responses are not reviewed in real time and encouraged them to contact this provider or the care team directly with any concerns or questions. Reviewed potential risks (e.g., privacy concerns) and benefits (e.g., ease and convenience). Reviewed clear guidelines on what actions the Dagmar should take if experiencing an acute MH crisis (i.e., contact the [facility] Crisis Line ([facility]), call 911, go to the nearest emergency room, etc.). Dagmar consents to use the of the [employer] application consistent with the agreed upon parameters (e.g., not to be used for urgent communications). RISK ASSESSMENT: [X] Emergency services: Dagmar educated/aware of how to access emergency Services; weapons stored in safe [X] No new risk factors relevant to suicide or homicide are reported by the . [] Changes in risk factors identified: [] Suicidal or homicidal ideation/behaviors present: [X] did not appear to be at imminent risk to harm self or others at this time. remains sustainable as an outpatient. [] Additional steps taken to mitigate elevated risk, if indicated: [] Dagmar is judged in need of further evaluation regarding appropriate/safe level of care. [] *Emergency protocols are initiated. Specifically: * Presenting Problem: Nodule on adrenal glands [X] PROGRESS ON PSYCHOSOCIAL/PSYCHOTHERAPY GOALS/OBJECTIVES: 'S PROBLEM/GOALS/OBJECTIVES [...] OR SYMPTOM REVIEW: Currently: working out moderately 0 times a week, no jujitsu; Previous sessions: Drove to [facility] with colleagues, no issues driving ([place], [place]), increasing exercise; no calling ; Recently: drove to [facility] (30 minutes), worked out 3 times, not calling , went to crowded work alliance party, not napping; Recently: less napping and less intense workouts; Baseline: 20 minutes of driving away from home; less intense workouts (walking on treadmill, long breaks between sets); left work alliance party early and called , comfortable at work and home only; flow rolling only #2. GOAL/OBJECTIVES FOR THIS EPISODE OF CARE: More mindful, with less anxiety PROGRESS TOWARDS GOAL OR SYMPTOM REVIEW: Current: Less present: 25%; Recent: bit more mindful 40%, GLORIA = 8; Baseline: 25% mindful; GLORIA-7 = 19 Interventions: Below Interpretive Summary: Panic with agoraphobia and cardiac fears TREATMENT PLAN: [X] EBP was discussed for applicable MH disorders (e.g. MDD, Schizophrenia, PTSD). [X] EBP part of care plan (specify) [] Dagmar declined/deferred EBP at this time. [] EBP not clinically indicated at this time. [X] Individual Psychotherapy. Estimated duration/frequency: CBT for Panic 15 sessions over 36 weeks; begin with education, consider UP INFORMED CONSENT: [X] Engaged Dagmar in shared decision making discussion about the risks and benefits of receiving psychotherapy/psychosocial interventions, including receiving no intervention. Dagmar consents to treatment plan. Also discussed limits of confidentiality at the outset of session and consented to services. RESPONSE TO INTERVENTIONS: [X] The participated actively in the current interventions. [ ] Other: Dagmar agreed to following RECOMMENDATIONS/PLAN: [X] RTC: Date/time/method: 09/18 & 10/02 @ 3 pm vvc (2-4 availability) [ ] Referrals/Interdisciplinary care? [X] Assigned Therapy Tasks: Track panic (before calling ); Review 8 & 7.2 for cardiac issues, list new avoidances; Pause: practice running in place 60 seconds until 2, mindfulness practice once a week [X] The Dagmar continues to agree with the current plan of care and [id number] plan. Comments: sent panic exercises PCP and to for administrative associate with [facility] /allan/ TONY JIMÉNEZ Psychologist [facility] Signed: 08/28/2024 16:20 TONY JIMÉNEZ [facility]
[2024-08-29 14:33] LABS: Basophils Percent Auto 0.6 % (0.2-1.2); Eosinophils Absolute Auto 0.1 K/mm3 (0-0.3); Hematocrit 48.7 % (42.0-52.0); Immature Granulocyte Absolute 0.02 K/mm3 (0.00-0.031); Immature Granulocyte Percent A 0.3 % (0-0.5); Lymphocytes Absolute Auto 1.38 K/mm3 (0.9-3.2); Lymphocytes Percent Auto 20.4 % (18.3-44.2); Mean Corpuscular HGB Conc 32.9 g/dl (32-36); Mean Corpuscular Hemoglobin 28.6 pg (26-34); Mean Platelet Volume 9.9 fl (7.4-10.4); Monocytes Absolute Auto 0.5 K/mm3 (0.1-0.6); Monocytes Percent Auto 7.5 % (2.6-8.5); Neutrophils Absolute Auto 4.7 K/mm3 (1.3-6.7); Neutrophils Percent Auto 70.2 % (45.5-73.1); Platelet Count Result 220 k/mm3 (150-375); White Blood Count 6.8 K/mm3 (4.5-10.0)
[2024-08-29 14:57] LABS: Alanine Aminotransferase 27 U/L (6-50); Albumin Level 4.7 g/dL (3.5-5.1); Alkaline Phosphatase 74 U/L (38-126); Anion Gap 10 mmol/L (4-12); Aspartate Amino Transferase 26 U/L (17-59); Bilirubin,Total 0.9 mg/dL (0.2-1.3); Blood Urea Nitrogen 19 mg/dL (9-20); Calcium 9.5 mg/dL (8.4-10.2); Carbon Dioxide 25 mmol/L (22-30); Chloride 104 mmol/L (98-107); Estimated CRCL calculation 93 ml/min; Estimated Glomerular Filt Rate > 60; Glucose 122 mg/dL (65-110); Potassium 3.9 mmol/L (3.4-5.0); Sodium 139 mmol/L (137-145)
--- OUTSIDE RECORDS SUMMARY | 2024-08-29 15:14 | XMS_ITS | Continuity of Care Document ---
Author Name [facility] Organization 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 Unavailable Unavailable Problems Combined list of problems [...] DoD Need For Prophylactic Antibiotics Inactive Condition [facility] BACK STRAIN THORACIC Inactive Condition [facility] UPPER RESPIRATORY INFECTION Inactive Condition DoD Need For Vaccination Poliomyelitis Inactive Condition [facility] ANKLE SPRAIN Inactive Condition [facility] CELLULITIS OF THE ANKLE Inactive Condition [facility] SINUSITIS ACUTE Inactive Condition [facility] ASTIGMATISM - REGULAR Active Condition [facility] REFRACTIVE ERROR - MYOPIA Active Condition DoD visit for: services physical Active Condition [facility] Intervention And Counseling On Cessation Of Tobacco Use Active Condition DoD visit for: services physical accession Active Condition [facility] Immunology Studies Raised Antibody Titer Active Condition [facility] Blood Typing Inactive Condition DoD Need For Vaccination Hepatitis A And Hepatitis B Inactive Condition DoD Need For Vaccination Pneumococcal Inactive Condition [facility] Vaccines Prophylactic Need Against Viral Diseases Inactive Condition DoD visit for: screening exam pulmonary tuberculosis Inactive Condition [facility] Attention deficit hyperactivity disorder, combined type Active Condition [facility] Benign essential hypertension Active Condition [facility] Chronic back pain Active Condition [facility] Exposure to potentially hazardous substance Active Condition [facility] Gastroesophageal reflux disease Active Condition [facility] Generalized anxiety disorder Active Condition [facility] Hand joint pain Active [facility] Hypospadias, penile Active Condition [facility] Insomnia Active Condition [facility] Olecranon bursitis Active Condition [facility] Panic Active Condition [facility] Diagnosis: ICD-10-CM F41.0 Panic disorder [episodic paroxysmal anxiety] Active Diagnosis [facility] Diagnosis: ICD-10-CM F41.1 Generalized anxiety disorder Active Diagnosis [facility] Diagnosis: ICD-10-CM I47.11 Inappropriate sinus tachycardia, so stated Active Diagnosis [facility] Diagnosis: ICD-10-CM G47.33 Obstructive sleep apnea (adult) (pediatric) Active Diagnosis [facility] Diagnosis: ICD-10-CM Z02.9 Encounter for administrative examinations, unspecified Active Diagnosis [facility] Diagnosis: ICD-10-CM I10 Essential (primary) hypertension Active Diagnosis [facility] Diagnosis: ICD-10-CM Z71.9 Counseling, unspecified Active Diagnosis [facility] Diagnosis: ICD-10-CM 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 Active Diagnosis [facility] Diagnosis: ICD-10-CM F43.20 Adjustment disorder, unspecified Active Diagnosis [facility] Diagnosis: ICD-10-CM F41.8 Other specified anxiety disorders Active Diagnosis [facility] Diagnosis: ICD-10-CM Q54.1 Hypospadias, penile Active Diagnosis [facility] Medications Combined list of outpatient medications [...] FOR VITAMIN D DEFICIEN CY ORAL 12/04/2023 [id number] SUMIT DALE AMMAD T 2023 200 [facility] CLONAZEPAM 0.5MG TAB TAKE ONE-HALF TABLET BY MOUTH ONCE A DAY NEEDED FOR ANXIETY MAY CAUSE DROWSINE SS. DO NOT DRINK ALCOHOL. ORAL ACTIVE 11/24/2024 [id number] 5 SULY NEGRON 2024 15 [facility] CLONAZEPAM 0.5MG TAB TAKE ONE-HALF TABLET BY MOUTH TWICE DAILY NEEDED FOR PANIC SYMPTOMS MAY CAUSE DROWSINE SS. DO NOT DRINK ALCOHOL. ORAL 05/19/2024 [id number] 4 SULY NEGRON N 2023 30 [facility] Fazal CLONIDINE HCL 0.1MG TAB TAKE ONE TABLET BY MOUTH TWICE DAILY NEEDED FOR ANXIETY ORAL DISCONT INUED BY PROVIDE R 02/17/2025 [id number] 4 SULY NEGRON N 2023 120 [facility] ERGOCALCIFE ROL 1,250MCG (50,000UNIT ) CAP TAKE ONE CAPSULE BY MOUTH EVERY WEEK FOR VITAMIN D DEFICIEN CY ORAL 02/10/2024 [id number] 4 SUMIT DALE T [address] [facility] HYDROXYZINE HCL 10MG TAB TAKE ONE TABLET BY MOUTH THREE TIMES A DAY NEEDED FOR ANXIETY *MAY CAUSE DROWSINE SS* IF ANXIETY PERSISTS , MAY INCREASE TO TWO TABLETS BY MOUTH THREE TIMES A DAY NEEDED. ORAL DISCONT INUED BY PROVIDE R 03/21/2025 [id number] 5 SULY NEGRON N 2023 180 [facility] [place] POTASSIUM 100MG TAB TAKE ONE-HALF TABLET BY MOUTH ONCE A DAY FOR HIGH BLOOD PRESSURE ORAL SUSPEND ED 01/24/2025 [id number] SUMIT DALE T 2024 45 [facility] [place] POTASSIUM 100MG TAB TAKE ONE-HALF TABLET BY MOUTH ONCE A DAY FOR HIGH BLOOD PRESSURE ORAL DISCONT INUED 01/24/2025 [id number] SUMIT DALE T 2023 30 [facility] METHYLPHENI DATE HCL (EQV-CONCER TA) 18MG TAB,SA TAKE ONE TABLET BY MOUTH EVERY MORNING FOR ADHD *SWALLOW WHOLE, DO NOT CRUSH, SPLIT, OR CHEW. ORAL 04/15/2024 [id number] 4 SULY NEGRON N 2023 30 [facility] METHYLPHENI DATE HCL (EQV-CONCER TA) 18MG TAB,SA TAKE ONE TABLET BY MOUTH ONCE A DAY FOR ADHD *SWALLOW WHOLE, DO NOT CRUSH, SPLIT, OR CHEW. ORAL 03/10/2024 [id number] 4 ANGLE PERSAUD HER CHANCE 2023 30 [facility] METHYLPHENI DATE HCL (EQV-CONCER TA) 18MG TAB,SA TAKE ONE TABLET BY MOUTH ONCE A DAY FOR ADHD *SWALLOW WHOLE, DO NOT CRUSH, SPLIT, OR CHEW. ORAL 02/04/2024 [id number] 4 ANGLE PERSAUD HER CHANCE 2023 30 [facility] METHYLPHENI DATE HCL (EQV-CONCER TA) 18MG TAB,SA TAKE ONE TABLET BY MOUTH ONCE A DAY FOR ADHD *SWALLOW WHOLE, DO NOT CRUSH, SPLIT, OR CHEW. ORAL 01/02/2024 [id number] 4 ADA LAZCANO 2023 30 [facility] MIRTAZAPINE 30MG TAB TAKE ONE TABLET BY MOUTH AT BEDTIME ANXIETY/ SLEEP/MO OD TAKE ONE HOUR PRIOR TO BEDTIME. ORAL ACTIVE 04/20/2025 [id number] 4 SULY ENGRON 2023 90 [facility] MIRTAZAPINE 30MG TAB TAKE ONE TABLET BY MOUTH AT BEDTIME TAKE ONE HOUR PRIOR TO BEDTIME. ORAL DISCONT INUED (EDIT) 01/05/2025 [id number] 4 ADA LAZCANO 2023 30 [facility] N MIRTAZAPINE 30MG TAB TAKE ONE-HALF TABLET BY MOUTH AT BEDTIME FOR 7 DAYS, THEN TAKE ONE TABLET AT BEDTIME FOR 30 DAYS TAKE ONE HOUR PRIOR TO BEDTIME. ORAL DISCONT INUED 12/03/2024 [id number] 4 ADA LAZCANO 2023 34 [facility] N MIRTAZAPINE 30MG TAB TAKE ONE TABLET BY MOUTH AT BEDTIME FOR 30 DAYS TAKE ONE HOUR PRIOR TO BEDTIME. ORAL DISCONT INUED (EDIT) 12/03/2024 [id number] 4 NENOADA Benedict 2023 30 [facility] NADOLOL 20MG TAB TAKE ONE TABLET BY MOUTH ONCE A DAY ORAL ACTIVE CHITO,SUMIT AMMAD T [address]24 [facility] NAPROXEN 500MG TAB TAKE ONE TABLET BY MOUTH TWICE A DAY NEEDED ORAL ACTIVE CHITO,MOH AMMAD T 2019 [facility] PANTOPRAZOL E NA 40MG TAB,EC TAKE ONE TABLET BY MOUTH EVERY MORNING BEFORE A MEAL FOR GASTROES OPHAGEAL REFLUX DISEASE TAKE 30 MINUTES BEFORE MEAL(S) ORAL ACTIVE 01/24/2025 [id number] 5 CHITO,[facility] AMMAD T [address] [facility] Allergies, Adverse Reactions, Alerts Combined list of allergies from Department of Defense and Veterans Affairs facilities. It does not include entries that were removed or entered in error. Substance Category Reaction Severity Reaction type Status Date Reported Comments Source No Known Allergies Drug allergy (disorder) active 09/18/2010 [facility] Immunizations Combined list of available immunizations from the Department of Defense and Veterans Affairs facilities. Immunization Series Date Given Administered By Site Reaction Lot Number CVX Code Drug Poultry Cleaner Status Comments Source INFLUENZA, UNSPECIFIED FORMULATION 2019 88 complet [facility] INFLUENZA, INJECTABLE, QUADRIVALENT, PRESERVATIVE FREE [address] [facility] INFLUENZA, INJECTABLE, QUADRIVALENT, PRESERVATIVE FREE 2017 150 complet [facility] influenza nasal, unspecified formulation 0 2014 [id number] [employer] (MED) complet ed influenza nasal, unspecifi [...] DoD influenza nasal, unspecified formulation 0 2012 [id number] [employer]. (MED) complet ed influenza nasal, unspecifi ed formulati on DoD Influenza, seasonal, injectable 0 2011 [id number] [employer] (PMC) complet ed Influenza , seasonal, injectabl e DoD anthrax vaccine 2 2011 [id number] (EBS) complet ed anthrax vaccine DoD [...] vaccine DoD Influenza, seasonal, injectable 0 2010 [id number] 141 [employer] (PMC) complet ed Influenza , seasonal, injectabl e DoD yellow fever vaccine 0 2010 [id number] [employer] (PMC) complet ed yellow fever vaccine DoD yellow fever vaccine 0 2010 [id number] 37 [employer] (PMC) complet ed yellow [...] acellular pertu is vaccine, adsorbed 0 2010 [id number] 115 [employer] (PMC) complet ed [...] Oct 05, 2023 03:28 PM Reporting Lab: [facility] [place] [address] Performing Lab: [facility] [address] URINALYSI S (STL-PB) BILIRUBIN.T OTAL [PRESENCE] IN URINE BY TEST STRIP Negati vemg/d L 12/02 Specimen Type: URINE No comment entered. Ordering Provider: MORENO DALE Report Released Date/Time: Oct 05, 2023 03:28 PM Reporting Lab: [facility] [place] [address] Performing Lab: [facility] URINALYSI S (STL-PB) PH OF URINE BY TEST STRIP 6.5 5.0 - 8.0 12/02 Specimen Type: URINE No comment entered. Ordering Provider: MORENO DALE Report Released Date/Time: Oct 05, 2023 03:28 PM Reporting Lab: [facility] [place] [phone] Performing Lab: [facility] #[address] URINALYSI S (STL-PB) APPEARANCE OF URINE Clear 12/02 Specimen Type: URINE No comment entered. Ordering Provider: MORENO DALE Report Released Date/Time: Oct 05, 2023 03:28 PM Reporting Lab: [facility]1 [place] [phone] Performing Lab: [facility] #[address] URINALYSI S (STL-PB) NITRITE [PRESENCE] IN URINE BY TEST STRIP Negati vemg/d L 12/02 Specimen Type: URINE No comment entered. Ordering Provider: MORENO DALE Report Released Date/Time: Oct 05, 2023 03:28 PM Reporting Lab: [facility]1 [place] [phone] Performing Lab: [facility] #[address] URINALYSI S (STL-PB) GLUCOSE [MASS/VOLUM E] IN URINE BY TEST STRIP Normal mg/dL 12/02 Specimen Type: URINE No comment entered. Ordering Provider: MORENO DALE Report Released Date/Time: Oct 05, 2023 03:28 PM Reporting Lab: [facility]1 [place] [phone] Performing Lab: [facility] URINALYSI S (STL-PB) PROTEIN [MASS/VOLUM E] IN URINE BY TEST STRIP Negati vemg/d L - 20 12/02 Specimen Type: URINE No comment entered. Ordering Provider: MORENO DALE Report Released Date/Time: Oct 05, 2023 03:28 PM Reporting Lab: [facility]1 [facility] [phone] Performing Lab: [facility] [place] [id number] URINALYSI S (STL-PB) URN.UROBILI NOGEN Normal mg/dL 12/02 Specimen Type: URINE No comment entered. Ordering Provider: MORENO DALE Report Released Date/Time: Oct 05, 2023 03:28 PM Reporting Lab: [facility] [place] [phone] Performing Lab: [facility] #[address] [place] [phone] URINALYSI S (STL-PB) HEMOGLOBIN [MASS/VOLUM E] IN URINE BY TEST STRIP Negati vemg/d L 12/02 Specimen Type: URINE No comment entered. Ordering Provider: MORENO DALE Report Released Date/Time: Oct 05, 2023 03:28 PM Reporting Lab: [facility] [place] [phone] Performing Lab: [facility]1 [facility] [phone] [place] [address] URINALYSI S (STL-PB) KETONES [MASS/VOLUM E] IN URINE BY TEST STRIP Negati vemg/d L 12/02 Specimen Type: URINE No comment entered. Ordering Provider: MORENO DLAE Report Released Date/Time: Oct 05, 2023 03:28 PM Reporting Lab: [facility]1 [place] [phone] Performing Lab: [facility] #1 [place] [phone] [place] [address] URINALYSI S (STL-PB) URN.LEUK.ES T. Negati vemg/d L 12/02 Specimen Type: URINE No comment entered. Ordering Provider: MORENO DALE Report Released Date/Time: Oct 05, 2023 03:28 PM Reporting Lab: [facility]1 [place] [address] Performing Lab: [facility] #[address] URINALYSI S (STL-PB) SPECIFIC GRAVITY OF URINE 1.025 1.005 - 1.029 12/02 Specimen Type: URINE No comment entered. Ordering Provider: MORENO DALE Report Released Date/Time: Oct 05, 2023 03:28 PM Reporting Lab: [facility] [place] [address] Performing Lab: [facility] #[address] DRUGS OF ABUSE (NEW) (STL) ETHANOL [MASS/VOLUM E] IN URINE Negati vemg/d L 0 - 20 12/02 Specimen Type: URINE No comment entered. Ordering Provider: ALTAGRACIA LAZCANO TTTIMOTEOW R Report Released Date/Time: Dec 03, 2023 09:06 AM Reporting Lab: [facility] [place] [address] Performing Lab: [facility] #[address] DIVISION DRUGS OF ABUSE (NEW) (STL) AMPHETAMINE [PRESENCE] IN URINE BY SCREEN METHOD Negati veng/m L 12/02 Specimen Type: URINE No comment entered. Ordering Provider: ALTAGRACIA LAZCANO TTTIMOTEOW R Report Released Date/Time: Dec 03, 2023 09:06 AM Reporting Lab: [facility] [place] [address] Performing Lab: [facility] #[address] DIVISION DRUGS OF ABUSE (NEW) (STL) BENZOYLECGO NINE [PRESENCE] IN URINE Negati veng/m L 12/02 Specimen Type: URINE No comment entered. Ordering Provider: ALTAGRACIA LAZCANO R Report Released Date/Time: Dec 03, 2023 09:06 AM Reporting Lab: [facility] [place] [address] Performing Lab: [facility] #[address] DIVISION DRUGS OF ABUSE (NEW) (STL) CANNABINOID S [PRESENCE] IN URINE BY SCREEN METHOD Negati veng/m L 12/02 Specimen Type: URINE No comment entered. Ordering Provider: ALTAGRACIA LAZCANO R Report Released Date/Time: Dec 03, 2023 09:06 AM Reporting Lab: [facility] [place] [address] Performing Lab: [facility] #[address] DIVISION DRUGS OF ABUSE (NEW) (STL) OPIATES [PRESENCE] IN URINE BY SCREEN METHOD Negati veng/m L 12/02 Specimen Type: URINE No comment entered. Ordering Provider: ALTAGRACIA LAZCANO R Report Released Date/Time: Dec 03, 2023 09:06 AM Reporting Lab: [facility] [place] [address] Performing Lab: [facility] #[address] DRUGS OF ABUSE (NEW) (STL) CREATININE [MASS/VOLUM E] IN URINE 145.9 mg/dL 63.0 - 166.0 12/02 Specimen Type: URINE No comment entered. Ordering Provider: ALTAGRACIA LAZCANO R Report Released Date/Time: Dec 03, 2023 09:06 AM Reporting Lab: [facility] [place] [address] Performing Lab: [facility] #[address] DIVISION FREE T4 (MA-PB) THYROXINE (T4) FREE [MASS/VOLUM E] IN SERUM OR PLASMA 1.13 ng/mL 0.70 - 1.48 12/02 Specimen Type: SERUM No comment entered. Ordering Provider: ALTAGRACIA LAZCANO R Report Released Date/Time: Dec 03, 2023 09:06 AM Reporting Lab: [facility] [place] [address] Performing Lab: [facility] #[address] DIVISION TOTAL T3 (STL) TRIIODOTHYR ONINE (T3) [MASS/VOLUM E] IN SERUM OR PLASMA 103.33 ng/dL 58.00 - 159.00 12/02 Specimen Type: PLASMA No comment entered. Ordering Provider: ALTAGRACIA LAZCANO R Report Released Date/Time: Dec 03, 2023 09:06 AM Reporting Lab: [facility] [place] [address] Performing Lab: [facility] #[address] DIVISION TSH (ME-PB) THYROTROPIN [UNITS/VOLU ME] IN SERUM OR PLASMA 1.054 u[IU]/ mL 0.470 - 5.000 12/02 Specimen Type: SERUM No comment entered. Ordering Provider: ALTAGRACIA LAZCANO R Report Released Date/Time: Dec 03, 2023 09:06 AM Reporting Lab: [facility] [place] [address] Performing Lab: [facility] #[address] DIVISION CBC LEUKOCYTES [#/VOLUME] IN BLOOD BY AUTOMATED COUNT 5.4 10*3/u L 3.6 - 11.2 12/02 Specimen Type: BLOOD No comment entered. Ordering Provider: MORENO DALE Report Released Date/Time: Oct 05, 2023 03:28 PM Reporting Lab: [facility] [place] [address] Performing Lab: [facility] #[address] CBC ERYTHROCYTE S [#/VOLUME] IN BLOOD BY AUTOMATED COUNT 5.29 10*6/u L 4.10 - 5.70 12/02 Specimen Type: BLOOD No comment entered. Ordering Provider: MORENO DALE Report Released Date/Time: Oct 05, 2023 03:28 PM Reporting Lab: [facility] [place] [address] Performing Lab: [facility] CBC HEMOGLOBIN [MASS/VOLUM E] IN BLOOD 15.5 g/dL 13.1 - 16.8 12/02 Specimen Type: BLOOD No comment entered. Ordering Provider: MORENO DALE Report Released Date/Time: Oct 05, 2023 03:28 PM Reporting Lab: [facility] [place] [address] Performing Lab: [facility] CBC HEMATOCRIT [VOLUME FRACTION] OF BLOOD 45.9 38.2 - 48.4 12/02 Specimen Type: BLOOD No comment entered. Ordering Provider: MORENO DALE Report Released Date/Time: Oct 05, 2023 03:28 PM Reporting Lab: [facility] [place] [address] Performing Lab: [facility] CBC MCV [ENTITIC VOLUME] BY AUTOMATED COUNT 86.8 fL 80.0 - 100.0 12/02 Specimen Type: BLOOD No comment entered. Ordering Provider: MORENO DALE Report Released Date/Time: Oct 05, 2023 03:28 PM Reporting Lab: [facility] [place] [address] Performing Lab: [facility] [place] [phone] CBC MCH [ENTITIC MASS] BY AUTOMATED COUNT 29.3 pg 27.0 - 34.0 12/02 Specimen Type: BLOOD No comment entered. Ordering Provider: MORENO DALE Report Released Date/Time: Oct 05, 2023 03:28 PM Reporting Lab: [facility] [place] [address] Performing Lab: [facility] CBC MCHC [MASS/VOLUM E] BY AUTOMATED COUNT 33.8 g/dL 33.0 - 36.0 12/02 Specimen Type: BLOOD No comment entered. Ordering Provider: MORENO DALE Report Released Date/Time: Oct 05, 2023 03:28 PM Reporting Lab: [facility] [place] [address] Performing Lab: [facility] CBC PLATELETS [#/VOLUME] IN BLOOD BY AUTOMATED COUNT 250 10*3/u L 150 - 400 12/02 Specimen Type: BLOOD No comment entered. Ordering Provider: MORENO DALE Report Released Date/Time: Oct 05, 2023 03:28 PM Reporting Lab: [facility] [place] [address] Performing Lab: [facility] CBC PLATELET MEAN VOLUME [ENTITIC VOLUME] IN BLOOD BY AUTOMATED COUNT 9.3 fL 7.5 - 11.2 12/02 Specimen Type: BLOOD No comment entered. Ordering Provider: MORENO DALE Report Released Date/Time: Oct 05, 2023 03:28 PM Reporting Lab: [facility] [phone] Performing Lab: [facility] [phone] CBC ERYTHROCYTE DISTRIBUTIO N WIDTH [RATIO] BY AUTOMATED COUNT 12.1 11.8 - 15.1 12/02 Specimen Type: BLOOD No comment entered. Ordering Provider: MORENO DALE Report Released Date/Time: Oct 05, 2023 03:28 PM Reporting Lab: [facility] [phone] Performing Lab: [facility] CBC LYMPHOCYTES /100 LEUKOCYTES IN BLOOD BY AUTOMATED COUNT 30 12/02 Specimen Type: BLOOD No comment entered. Ordering Provider: MORENO DALE Report Released Date/Time: Oct 05, 2023 03:28 PM Reporting Lab: [facility] [phone] Performing Lab: [facility] CBC MONOCYTES/1 00 LEUKOCYTES IN BLOOD BY AUTOMATED COUNT 8 12/02 Specimen Type: BLOOD No comment entered. Ordering Provider: MORENO DALE Report Released Date/Time: Oct 05, 2023 03:28 PM Reporting Lab: [facility] [phone] Performing Lab: [facility] CBC NEUTROPHILS /100 LEUKOCYTES IN BLOOD BY AUTOMATED COUNT 60 12/02 Specimen Type: BLOOD No comment entered. Ordering Provider: MORENO DALE Report Released Date/Time: Oct 05, 2023 03:28 PM Reporting Lab: [facility] [place] [phone] Performing Lab: [facility] [phone] [place] [address] CBC EOSINOPHILS /100 LEUKOCYTES IN BLOOD BY AUTOMATED COUNT 2 12/02 Specimen Type: BLOOD No comment entered. Ordering Provider: MORENO DALE Report Released Date/Time: Oct 05, 2023 03:28 PM Reporting Lab: [facility] [address] Performing Lab: [facility] [phone] CBC BASOPHILS/1 00 LEUKOCYTES IN BLOOD BY AUTOMATED COUNT 1 12/02 Specimen Type: BLOOD No comment entered. Ordering Provider: MORENO DALE Report Released Date/Time: Oct 05, 2023 03:28 PM Reporting Lab: [facility] [address] Performing Lab: [facility] [phone] [place] [address] CBC LYMPHOCYTES [#/VOLUME] IN BLOOD BY AUTOMATED COUNT 1.61 10*3/u L 0.77 - 4.50 12/02 Specimen Type: BLOOD No comment entered. Ordering Provider: MORENO DALE Report Released Date/Time: Oct 05, 2023 03:28 PM Reporting Lab: [facility] [phone] Performing Lab: [facility] [phone] [place] [address] CBC MONOCYTES [#/VOLUME] IN BLOOD BY AUTOMATED COUNT 0.43 10*3/u L 0.19 - 0.80 12/02 Specimen Type: BLOOD No comment entered. Ordering Provider: MORENO DALE Report Released Date/Time: Oct 05, 2023 03:28 PM Reporting Lab: [facility] [address] Performing Lab: [facility] [phone] [place] [address] CBC NEUTROPHILS [#/VOLUME] IN BLOOD BY AUTOMATED COUNT 3.22 10*3/u L 2.10 - 8.00 12/02 Specimen Type: BLOOD No comment entered. Ordering Provider: MORENO DALE Report Released Date/Time: Oct 05, 2023 03:28 PM Reporting Lab: [facility] [address] Performing Lab: [facility] [phone] CBC EOSINOPHILS [#/VOLUME] IN BLOOD BY AUTOMATED COUNT 0.10 10*3/u L 0.00 - 0.60 12/02 Specimen Type: BLOOD No comment entered. Ordering Provider: MORENO DALE Report Released Date/Time: Oct 05, 2023 03:28 PM Reporting Lab: [facility] [address] Performing Lab: [facility] [phone] CBC BASOPHILS [#/VOLUME] IN BLOOD BY AUTOMATED COUNT 0.05 10*3/u L 0.00 - 0.20 12/02 Specimen Type: BLOOD No comment entered. Ordering Provider: MORENO DALE Report Released Date/Time: Oct 05, 2023 03:28 PM Reporting Lab: [facility] [address] Performing Lab: [facility] [phone] COMPREHEN SIVE METABOLIC PANEL CREATININE [MASS/VOLUM E] IN SERUM OR PLASMA 1.20 mg/dL 0.70 - 1.30 12/02 Specimen Type: PLASMA Comment: No hemolysis noted. Ordering Provider: MORENO DALE Report Released Date/Time: Oct 05, 2023 03:28 PM Reporting Lab: [facility] [address] Performing Lab: [facility] [phone] COMPREHEN SIVE METABOLIC PANEL UREA NITROGEN [MASS/VOLUM E] IN SERUM OR PLASMA 20.9 mg/dL 9.0 - 25.0 12/02 Specimen Type: PLASMA Comment: No hemolysis noted. Ordering Provider: MORENO DALE Report Released Date/Time: Oct 05, 2023 03:28 PM Reporting Lab: [facility] [address] Performing Lab: [facility] [place] [id number] COMPREHEN SIVE METABOLIC PANEL GLUCOSE [MASS/VOLUM E] IN SERUM OR PLASMA 103 mg/dL 72 - 99 12/02 H Specimen Type: PLASMA Comment: No hemolysis noted. Ordering Provider: MORENO DALE Report Released Date/Time: Oct 05, 2023 03:28 PM Reporting Lab: [facility] [place] [phone] Performing Lab: [facility] [phone] COMPREHEN SIVE METABOLIC PANEL SODIUM [MOLES/VOLU ME] IN SERUM OR PLASMA 140 meq/L 136 - 145 12/02 Specimen Type: PLASMA Comment: No hemolysis noted. Ordering Provider: MORENO DALE Report Released Date/Time: Oct 05, 2023 03:28 PM Reporting Lab: [facility] [address] Performing Lab: [facility] [phone] [place] [address] COMPREHEN SIVE METABOLIC PANEL POTASSIUM [MOLES/VOLU ME] IN SERUM OR PLASMA 4.1 meq/L 3.5 - 5.0 12/02 Specimen Type: PLASMA Comment: No hemolysis noted. Ordering Provider: MORENO DALE Report Released Date/Time: Oct 05, 2023 03:28 PM Reporting Lab: [facility] [place] [address] Performing Lab: [facility] COMPREHEN SIVE METABOLIC PANEL CHLORIDE [MOLES/VOLU ME] IN SERUM OR PLASMA 103 meq/L 98 - 107 12/02 Specimen Type: PLASMA Comment: No hemolysis noted. Ordering Provider: MORENO DALE Report Released Date/Time: Oct 05, 2023 03:28 PM Reporting Lab: [facility] [place] [address] Performing Lab: [facility] COMPREHEN SIVE METABOLIC PANEL CARBON DIOXIDE, TOTAL [MOLES/VOLU ME] IN SERUM OR PLASMA 24 meq/L 22 - 31 12/02 Specimen Type: PLASMA Comment: No hemolysis noted. Ordering Provider: MORENO DALE Report Released Date/Time: Oct 05, 2023 03:28 PM Reporting Lab: [facility] [place] [address] Performing Lab: [facility] COMPREHEN SIVE METABOLIC PANEL CALCIUM [MASS/VOLUM E] IN SERUM OR PLASMA 9.8 mg/dL 8.4 - 10.4 12/02 Specimen Type: PLASMA Comment: No hemolysis noted. Ordering Provider: MORENO DALE Report Released Date/Time: Oct 05, 2023 03:28 PM Reporting Lab: [facility] [place] [address] Performing Lab: [facility] COMPREHEN SIVE METABOLIC PANEL PROTEIN [MASS/VOLUM E] IN SERUM OR PLASMA 7.4 g/dL 6.0 - 8.6 12/02 Specimen Type: PLASMA Comment: No hemolysis noted. Ordering Provider: MORENO DALE Report Released Date/Time: Oct 05, 2023 03:28 PM Reporting Lab: [facility] [place] [address] Performing Lab: [facility] COMPREHEN SIVE METABOLIC PANEL ALBUMIN [MASS/VOLUM E] IN SERUM OR PLASMA 4.5 g/dL 3.4 - 5.0 12/02 Specimen Type: PLASMA Comment: No hemolysis noted. Ordering Provider: MORENO DALE Report Released Date/Time: Oct 05, 2023 03:28 PM Reporting Lab: [facility] [place] [address] Performing Lab: [facility] COMPREHEN SIVE METABOLIC PANEL BILIRUBIN.T OTAL [MASS/VOLUM E] IN SERUM OR PLASMA 0.9 mg/dL 0.2 - 1.2 12/02 Specimen Type: PLASMA Comment: No hemolysis noted. Ordering Provider: MORENO DALE Report Released Date/Time: Oct 05, 2023 03:28 PM Reporting Lab: [facility] [place] [address] Performing Lab: [facility] COMPREHEN SIVE METABOLIC PANEL ALKALINE PHOSPHATASE [ENZYMATIC ACTIVITY/VO LUME] IN SERUM OR PLASMA 72 U/L 40 - 150 12/02 Specimen Type: PLASMA Comment: No hemolysis noted. Ordering Provider: MORENO DALE Report Released Date/Time: Oct 05, 2023 03:28 PM Reporting Lab: [facility] [place] [address] Performing Lab: [facility] [phone] [place] [address] COMPREHEN SIVE METABOLIC PANEL ASPARTATE AMINOTRANSF ERASE [ENZYMATIC ACTIVITY/VO LUME] IN SERUM OR PLASMA 20 U/L 5 - 34 12/02 Specimen Type: PLASMA Comment: No hemolysis noted. Ordering Provider: MORENO DALE Report Released Date/Time: Oct 05, 2023 03:28 PM Reporting Lab: [facility] [address] Performing Lab: [facility] [phone] COMPREHEN SIVE METABOLIC PANEL ALANINE AMINOTRANSF ERASE [ENZYMATIC ACTIVITY/VO LUME] IN SERUM OR PLASMA 30 U/L 8 - 40 12/02 Specimen Type: PLASMA Comment: No hemolysis noted. Ordering Provider: MORENO DALE Report Released Date/Time: Oct 05, 2023 03:28 PM Reporting Lab: [facility] [address] Performing Lab: [facility] [address] COMPREHEN SIVE METABOLIC PANEL GLOMERULAR FILTRATION RATE/1.73 SQ M.PREDICTED [VOLUME RATE/AREA] IN SERUM, PLASMA OR BLOOD BY CREATININE- BASED FORMULA (CKD-EPI 2020) 81.89 60 12/02 Specimen Type: PLASMA Comment: No hemolysis noted. Ordering Provider: MORENO DALE Report Released Date/Time: Oct 05, 2023 03:28 PM Reporting Lab: [facility] [address] Performing Lab: [facility] [phone] HGA1C HEMOGLOBIN A1C/HEMOGLO BIN.TOTAL IN BLOOD 5.4 4.0 - 6.0 12/02 Specimen Type: BLOOD No comment entered. Ordering Provider: MORENO DALE Report Released Date/Time: Oct 05, 2023 03:28 PM Reporting Lab: [facility] [address] Performing Lab: [facility] PROST. SPECIFIC AG.(PB-ST L) PROSTATE SPECIFIC AG [...] Oct 05, 2023 03:28 PM Reporting Lab: [facility] [address] Performing Lab: [facility] VITAMIN D, 25-HYDROX Y 25-HYDROXYV ITAMIN [...] Oct 05, 2023 03:28 PM Reporting Lab: [facility] [address] Performing Lab: [facility] [phone] [place] [address] Vital Signs Combined list of inpatient and outpatient Vital Signs from Department of Defense and Veterans Affairs, ranging from 12 months to all on record, depending upon the facility. Vital Sign Value Date Comments Source SYSTOLIC BLOOD PRESSURE 142 12/31/19 24 09:35:02 [facility] DIASTOLIC BLOOD PRESSURE 93 024 09:35:02 [facility] PULSE OXIMETRY 99 12/31/2023 09:35:02 [facility] WEIGHT 213.7 12/31/2023 09:35:02 [facility] BMI 30 kg/m2 12/31/2023 09:35:02 [facility] PAIN 0 12/31/2023 09:35:02 [facility] HEIGHT 70.5 12/31/2023 09:35:02 [facility] TEMPERATURE 97.5 12/31/2023 09:35:02 [facility] PULSE 92 12/31/2023 09:35:02 [facility] RESPIRATION 20 12/31/2023 09:35:02 [facility] SYSTOLIC BLOOD PRESSURE 128 10/05/19 24 15:04:02 [facility] DIASTOLIC BLOOD PRESSURE 80 024 15:04:02 [facility] PULSE OXIMETRY 97 10/05/2023 15:04:02 [facility] WEIGHT 207 10/05/2023 15:04:02 [facility] BMI 30 kg/m2 10/05/2023 15:04:02 [facility] PAIN 4 10/05/2023 15:04:02 [facility] TEMPERATURE 97.9 10/05/2023 15:04:02 [facility] PULSE 70 10/05/2023 15:04:02 [facility] RESPIRATION 18 10/05/2023 15:04:02 [facility] Encounters Combined list of: 1) Encounters from Department of Veterans Affairs facilities going backup to the last 18 months, not all VA inpatient encounters are included; 2) Encounters from the Department of Defense facilities going backup to 280 months. Location Location Details Encounter Type Encounter Number Reason For Visit Attending Provider ADM Date DC Date Status Disposition Source [facility] D Recruit Processin g) OUTPATIENT [id number] MAHENDRA BLAKE 09/18 Released w/o Limitations [facility]( CRD Recruit Process ing) [facility](MCR D Optometry ) OUTPATIENT [id number] RECRUIT TORI HUGHES 09/18 Released w/o Limitations [facility]( CRD Optomet ry) [facility](MCR D Recruit Sick Call) OUTPATIENT [id number] COUGH X2 DAYS LOBO AGUILAR E 09/24 Released with Work/Duty Limitations [facility]( CRD Recruit Sick Call) [facility] D Sports Medicine) OUTPATIENT [id number] LEFT ANKLE SANCHEZ, ARACELIS J 09/24 Released with Work/Duty Limitations [facility]( CRD Sports Medicin e) [facility] D Sports Medicine) OUTPATIENT [id number] celluli tis ankle/b am ARACELIS SANCHEZ 09/25 Released with Work/Duty Limitations [facility]( CRD Sports Medicin e) [facility] D Sports Medicine) OUTPATIENT [id number] celluli tis/bam VICENTE NAVARRETE 09/26 Released with Work/Duty Limitations [facility]( CRD Sports Medicin e) [facility] D Recruit Processin g) OUTPATIENT [id number] [id number] DENIZ BHAGAT 10/17 Released w/o Limitations [facility]( CRD Recruit Process ing) [facility] D Recruit Sick Call) OUTPATIENT [id number] URI X 5 DAYS DC CHANCE ALEN 11/10 Released with Work/Duty Limitations [facility]( CRD Recruit Sick Call) [facility] D Sports Medicine) OUTPATIENT [id number] back pain VCIENTE NAVARRETE 11/10 Released w/o Limitations [facility]( CRD Sports Medicin e) [facility] D Recruit Processin g) OUTPATIENT [id number] T48 VACCINE ELVIRA POLLARD 11/17 Released w/o Limitations [facility]( CRD Recruit Process ing) [facility]) OUTPATIENT [id number] 06/02/19 12 POST-AN AM LEYDA CAMPBELL 06/09 Released w/o Limitations [facility]( [facility]- TRAM) [facility]-AN ) OUTPATIENT [id number] POST [facility] ENCOUNLEYDA MYERS 04/13 Released w/o Limitations [facility]( [facility] [place]- TRAM) [facility](Op tometry [facility]) OUTPATIENT [id number] routine eye exam ADA SARABIA 09/06 Released w/o Limitations [facility]( Optomet ry [facility]) [facility]( aring Conserv-B 65) OUTPATIENT [id number] LEANDRO TIDWELL 01/11 Released w/o Limitations [facility]( Hearing Conserv -B65) [facility]) OUTPATIENT [id number] 04/03/20 13 PRE/[facility] MATT VALENTE 04/04 Released w/o Limitations [facility]( [facility]- RTAM) [facility]( aring Conserv-B 65) OUTPATIENT [id number] Notes Entered by: JENAE CHEUNG 11 Dec 2013 0850 ------- ------- ------- ------- -- FISH FRAGA 12/11 Released w/o Limitations [facility]( Hearing Conserv -B65) [facility](3 BN) OUTPATIENT [id number] Notes Entered by: GENEVIEVE VALDES 19 Feb 2014 0941 ------- ------- ------- ------- -- Pain in hand ETHEL JULES 02/19 Released with Work/Duty Limitations [facility]( 07/08 BN) [facility](07/08 BN) OUTPATIENT [id number] Notes Entered by: GENEVIEVE VALDES 06 Mar 2014 0759 ------- ------- ------- ------- -- F/U for ETHEL Lopez 03/06 Released w/o Limitations [facility]( 07/08 BN) [facility](07/08 BN) OUTPATIENT [id number] Notes Entered by: CATARINA CABEZAS 07 May 2014 0833 ------- ------- ------- ------- -- Refill of medicat ETHEL Brown 05/07 Released w/o Limitations [facility]( 07/08 BN) [facility](Sp orts Medicine- [facility]) OUTPATIENT [id number] Notes Entered by: Varghese HARDWICK 28 May 2014 1324 ------- ------- ------- ------- -- SOI-E ATC Eval for Right Hand/Wr ist Pain RASHID HARDWICK 05/28 Released w/o Limitations [facility]( Sports Medicin e- [facility]) [facility]) OUTPATIENT [id number] PRE/ADEEL AJIT TOURE 10/04 Released w/o [facility]( [facility]) [facility]( aring Conserv-B 65) OUTPATIENT [id number] Notes Entered by: DENIZ KNAPP 11 Oct 2014 1108 ------- ------- ------- ------- -- DENIZ Vargas 10/11 Released w/o Limitations [facility]( Hearing Conserv -B65) [facility]() OUTPATIENT [id number] Notes Entered by: SONDRA GUERRA 19 Jun 2015 0835 ------- ------- ------- ------- -- ALESSIA DELUCA 06/19 Released w/o Limitations [facility]( 07/08 BN) [facility](Op tometry [facility]) OUTPATIENT [id number] ROUTINE EYE EXAM NEEDS GLASSES TUNDE MAN 06/27 Released w/o Limitations [facility]( Optomet ry [facility]) [facility](He aring Conserv-B 65) OUTPATIENT [id number] Notes Entered by: DENIZ KNAPP 08 Jul 2015 1456 ------- ------- ------- ------- -- term DENIZ KNAPP 07/07 Released w/o Limitations [facility]( Hearing Conserv -B65) [facility]() OUTPATIENT [id number] Notes Entered by: KOFI MORALEZ 26 Jul 2015 0856 ------- ------- ------- ------- -- shad PARKER(ID C)CECILIO 07/25 Released w/o Limitations [facility]( 07/08 BN) [facility](07/08 BN) OUTPATIENT [id number] Notes Entered by: KOFI MORALEZ 01 Aug 2015 0850 ------- ------- ------- ------- -- urinary issues KATARINA GALLOWAY 07/31 Released w/o Limitations [facility]( 07/08 BN) [facility] OFFICE O/P EST MOD 30 MIN [id number] Diagnos is: ICD-10- CM Q54.1 Hypospa frank, penile CHITOGOD T 06/18 [facility] Outpatient Encounter [id number] 07/12 [facility] Outpatient Encounter [id number] GO DALE MMAD T 09/04 [facility] N [facility] OFFICE O/P EST MOD 30 MIN [id number] Diagnos is: ICD-10- CM Q54.1 Hypospa frank, penile CHITOGO Mcmullen MMAD T 10/04 [facility] Outpatient Encounter [id number] 10/04 [facility] Outpatient Encounter [id number] 10/07 [facility] PSYTX W PT 60 MINUTES [id number] Diagnos is: ICD-10- CM F41.8 Other specifi ed anxiety disorde PAMELA Singh 10/18 [facility] Outpatient Encounter [id number] IBRAHIMA ADAMS 10/20 [facility] Outpatient Encounter [id number] 10/25 [facility] PSYTX W PT 30 MINUTES [id number] Diagnos is: ICD-10- CM F41.8 Other specifi ed anxiety disorde rs Sanjeev EDGAR 10/28 [facility] Outpatient Encounter [id number] 10/31 [facility] PSYTX W PT 45 MINUTES [id number] Diagnos is: ICD-10- CM F43.20 Adjustm ent disorde r, unspeci fied PAMELA RIOS S 11/15 [facility] Outpatient Encounter [id number] CHITOGO Mcmullen GENEVIEVE T 11/28 [facility] PSY EVALUATION OF RECORDS [id number] Diagnos is: ICD-10- CM F41.1 General ized anxiety disorde r Juliet LAZCANO R 12/02 [facility] Outpatient Encounter [id number] 12/20 [facility] Outpatient Encounter [id number] 12/20 [facility] OFFICE O/P EST MOD 30 MIN [id number] Diagnos is: ICD-10- CM 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 TONY Espinoza IS J 12/30 [facility] Outpatient Encounter [id number] 01/04 [facility] Outpatient Encounter [id number] [id number] 01/04 [facility] Outpatient Encounter [id number] CRISTINA CHANDRA 01/04 [facility] Outpatient Encounter [id number] LAURI THAYER 01/05 [facility] OFF/OP EST MAY X REQ PHY/QHP [id number] Diagnos is: ICD-10- CM 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, unspeci fiPRIYANK Song 01/19 [facility] OFFICE O/P EST MOD 30 MIN [id number] Diagnos is: ICD-10- CM I10 Essenti al (primar y) hyperte GO Bowling MMAD T 01/23 [facility] Outpatient Encounter [id number] RASHID PERSAUD 01/27 [facility] Outpatient Encounter [id number] 01/27 [facility] Outpatient Encounter [id number] 02/08 [facility] Outpatient Encounter [id number] [id number] 02/08 [facility] Outpatient Encounter [id number] 02/14 [facility] [place] OFFICE O/P NEW HI 60 MIN [id number] Diagnos is: ICD-10- CM F41.1 General ized anxiety disorde r CATARINA NEGRON 02/16 [facility] [place] [facility] Outpatient Encounter [id number] ALLEGRA NUNEZ 02/16 [facility] Outpatient Encounter [id number] CATARINA NEGRON IEL N 02[facility] Outpatient Encounter [id number] 03/15 [facility] Q[facility]P OL DIG ASSMT&MGMT 5-10 [id number] Diagnos is: ICD-10- CM Z02.9 Encount er for adminis trative examina tions, unspeci Varghese Mc A 03/16 [facility] POS AIRWAY PRESSURE CPAP [id number] [id number] Diagnos is: ICD-10- CM G47.33 Obstruc tive sleep apnea (adult) ([facility]) CYNDIE CRUZ LBY 03/16 [facility] POS AIRWAY PRESSURE CPAP [id number] [id number] Diagnos is: ICD-10- CM G47.33 Obstruc tive sleep apnea (adult) ([facility]) CYNDIE CRUZ LBY 03/16 [facility] [place] [facility] O/P EST MOD 30 MIN [id number] Diagnos is: ICD-10- CM F41.1 General ized anxiety disorde r CATARINA NEGRON IEL 03/20 [facility] Outpatient Encounter [id number] 03/20 [facility] Outpatient Encounter [id number] 03/20 [facility] Outpatient Encounter [id number] GO DALE MMAD T 03/27 [facility] Outpatient Encounter [id number] 03/31 [facility] PSYTX W PT 60 MINUTES [id number] [id number] Diagnos is: ICD-10- CM F41.0 Panic disorde r [episod ic paroxys mal anxiety ] ME MIGEL JIMÉNEZ M 04/11 [facility] PSYTX W PT 60 MINUTES [id number] Diagnos is: ICD-10- CM F41.0 Panic disorde r [episod ic paroxys mal anxiety ] ME MIGEL JIMÉNEZ M 04/17 [facility] [place] [facility] OFFICE O/P EST MOD 30 MIN [id number] Diagnos is: ICD-10- CM F41.0 Panic disorde r [episod ic paroxys mal anxiety ] CATARINA NEGRON IEL 04/19 [facility] [place] [facility] Outpatient Encounter [id number] 04[facility] PT 60 MINUTES [id number] Diagnos is: ICD-10- CM F41.0 Panic disorde r [episod ic paroxys mal anxiety ] ME MIGEL JIMÉNEZ M 05/01 [facility] [place] [facility] SYNCH AUDIO-VIDE O EST MOD 30 [id number] Diagnos is: ICD-10- CM F41.1 General ized anxiety disorde r CATARINA NEGRON IEL 05/24 [facility] [place] [facility] Outpatient Encounter [id number] 05/24 [facility] W PT 60 MINUTES [id number] Diagnos is: ICD-10- CM F41.0 Panic disorde r [episod ic paroxys mal anxiety ] ME MIGLE JIMÉNEZ M 05/25 [facility] PSYTX W PT 60 MINUTES [id number] Diagnos is: ICD-10- CM F41.0 Panic disorde r [episod ic paroxys mal anxiety ] ME MIGEL JIMÉNEZ M 06/08 [facility] En[facility] [id number] ME MIGEL JIMÉNEZ M 06/08 [facility] PT 60 MINUTES [id number] Diagnos is: ICD-10- CM F41.0 Panic disorde r [episod ic paroxys mal anxiety ] ME MIGEL JIMÉNEZ M 06/26 [facility] SYNCH AUDIO-VIDE O EST MOD 30 03112-3.58 [id number] Diagnos is: ICD-10- CM F41.0 Panic disorde r [episod ic paroxys mal anxiety ] CATARINA NEGRON IEL 06/26 [facility] Outpatient Encounter [id number] 06/26 [facility] PSYTX W PT 45 MINUTES [id number] Diagnos is: ICD-10- CM F41.0 Panic disorde r [episod ic paroxys mal anxiety ] ME MIGEL JIMÉNEZ 07/11 [facility] N [facility] Outpatient Encounter [id number] ME MIGEL JIMÉNEZ M 07/13 [facility] Outpatient Encounter [id number] [employer] [facility] EE L 07/18 [facility] MERG[facility] WITH [facility] SYNCH AUDIO-VIDE O EST MOD 30 [id number] Diagnos is: ICD-10- CM F41.1 General ized anxiety disorde r CATARINA NEGRON IEL 07/20 [facility] Outpatient Encounter [id number] 07/20 [facility] SYNCH AUDIO-ONLY EST MOD 30 [id number] Diagnos is: ICD-10- CM I47.11 Inappro priate sinus tachyca rdia, so stated GO DALE MMAD T 07/21 [facility] Outpatient Encounter [id number] 07/25 [facility] PSYTX W PT 60 MINUTES [id number] Diagnos is: ICD-10- CM F41.0 Panic disorde r [episod ic paroxys mal anxiety ] ME MIGEL JIMÉNEZ 07/31 [facility] Outpatient Encounter [id number] ME MIGEL JIMÉNEZ M 07/31 [facility] PSYTX W PT 60 MINUTES [id number] Diagnos is: ICD-10- CM F41.0 Panic disorde r [episod ic paroxys mal anxiety ] ME MIGEL JIMÉNEZ M 08/14 [facility] Outpatient Encounter [id number] ALLEGRA NUNEZ M 08/17 [facility] PSYTX W PT W E/M 30 MIN [id number] Diagnos is: ICD-10- CM F41.1 General ized anxiety disorde r CATARINA NEGRON IEL 08/17 [facility] Outpatient Encounter [id number] 08/17 [facility] PSYTX W PT 60 MINUTES [id number] Diagnos is: ICD-10- CM F41.0 Panic disorde r [episod ic paroxys mal anxiety ] ME MIGEL JIMÉNEZ M 08/28 [facility] Procedures Combined list of: 1) [...] ADMINISTERED BY A COMPUTER, WITH QUALIFIED HEALTH STUDIO TECHNICIAN VIDEO OPERATOR INTERPRETATION AND REPORT DoD APPLICATION OF A MODALITY TO 1 OR MORE AREAS; HOT OR COLD PACKS DoD SCREENING TEST, PURE TONE, AIR ONLY 014 DoD NEUROPSYCHOLOGICAL TESTING (EG, [place] CARD SORTING TEST), ADMINISTERED BY A COMPUTER, WITH QUALIFIED HEALTH STUDIO TECHNICIAN VIDEO OPERATOR INTERPRETATION AND REPORT DoD PATIENT EDUCATION, NOT OTHERWISE CLASSIFIED, NON-PHYSICIAN PROVIDER, GROUP, PER SESSION DoD DETERMINATION OF REFRACTIVE STATE DoD NEUROPSYCHOLOGICAL TESTING (EG, [place] CARD SORTING TEST), ADMINISTERED BY A COMPUTER, WITH QUALIFIED HEALTH STUDIO TECHNICIAN VIDEO OPERATOR INTERPRETATION AND REPORT DoD NEUROPSYCHOLOGICAL TESTING (EG, [place] CARD SORTING TEST), ADMINISTERED BY A COMPUTER, WITH QUALIFIED HEALTH STUDIO TECHNICIAN VIDEO OPERATOR INTERPRETATION AND REPORT DoD Patient education, not otherwise cla ified, non-physician provider, group, per se ion 016 DENIZ KNAPP Threshold Audiogram (Pure Tone) Threshold Audiogram (Pure Tone) 55948 016 DENIZ KNAPP [facility] Fitting Monofocals (Not For Aphakia) Spectacles Services Fitting Monofocals (Not For Aphakia) 43802 016 TUNDE MAN Foc, r5a DoD Ophthalmological Prior Patient Start Comprehensive Care Ophthalmological Prior Patient Start Comprehensive Care 33947 016 TUNDE MAN Determination Of Refractive State Determination Of Refractive State 26090 016 TUNDE MAN Patient education, not otherwise cla ified, non-physician provider, individual, per se ion 015 DENIZ KNAPP Threshold Audiogram (Pure Tone) Threshold Audiogram (Pure Tone) 26967 015 DENIZ KNAPP [facility] Psychometric Neuropsych Testing Battery Admin By Computer Psychometric Neuropsych Testing Battery Admin By Computer 78232 015 ROSALEE PITTMAN I [facility] Modalities Cryotherapy Cold Packs Modalities Cryotherapy Cold Packs 13254 015 HUMBERTO HARDWICK Exercises A isted Exercises For ROM Exercises Assisted Exercises For ROM 50073 015 HUMBERTO HARDWICK Athletic Training Evaluation Athletic Training Evaluation 00435 015 HUMBERTO HARDWICK Audiogram (Screening) Audiogram (Screening) 15599 014 FISH TRAN [facility] Psychometric Neuropsych Testing Battery Admin By Computer Psychometric Neuropsych Testing Battery Admin By Computer 74697 013 JUDY FELICIANO Audiogram (Screening) Audiogram (Screening) 71056 013 LEANDRO TIDWELL [facility] Patient education, not otherwise cla ified, non-physician provider, group, per se ion 013 LEANDRO TIDWELL [facility] Determination Of Refractive State Determination Of Refractive State 21452 013 ADA SARABIA Ophthalmological New Patient Start Comprehensive Care Ophthalmological New Patient Start Comprehensive Care 70150 013 ADA SARABIA Spectacles Services Fitting Monofocals (Not For Aphakia) Spectacles Services Fitting Monofocals (Not For Aphakia) 41906 013 ADA SARABIA [facility] Psychometric Neuropsych Testing Battery Admin By Computer Psychometric Neuropsych Testing Battery Admin By Computer 24988 012 JUDY FELICIANO Psychometric Neuropsych Testing Battery Admin By Computer Psychometric Neuropsych Testing Battery Admin By Computer 45252 012 TYRESE TREVIZO [facility] Vaccines Viral Yellow Fever Vaccines Viral Yellow Fever 52238 011 SHILPI SMITH Vaccines Viral Varicella (Active) Vaccines Viral Varicella (Active) [address] Supervised Injection Intramuscular Antibiotic Supervised Injection Intramuscular Antibiotic 77449 011 SHILPI SMITH Injection, penicillin g benzathine, 100,000 units SHILPI SMITH Motor - Performing Exam - Extremity (not hand) Motor - Performing Exam - Extremity (not hand) 61804 GABINO OTERO [facility] Range Of Motion Evaluation Of Extremity Range Of Motion Evaluation Of Extremity 35111 011 GABINO OTERO [facility] Vaccines Viral Polio, Inactivated (Salk) Vaccines Viral Polio, Inactivated (Salk) [address] Supervised Injection Intramuscular Antibiotic Supervised Injection Intramuscular Antibiotic 38310 011 ELVIRA POLLARD [facility] Immunization Administration Each Additional Vaccine Immunization Administration Each Additional Vaccine 89530 011 ELVIRA POLLARD [facility] Immunization Administration One Vaccine Immunization Administration One Vaccine 95163 011 ELVIRA POLLARD [facility] Vaccines Viral Varicella (Active) Vaccines Viral Varicella (Active) 57765 011 LATRICE, ELVIRA DoD Hepatitis A And Hepatitis B (Intramuscular Use) Adult Dosage Hepatitis A And Hepatitis B (Intramuscular Use) Adult Dosage 88099 011 ELVIRA POLLARD [facility] Spectacles Services Fitting Monofocals (Not For Aphakia) Spectacles Services Fitting Monofocals (Not For Aphakia) 23273 011 JT NUÑEZ Determination Of Refractive State Determination Of Refractive State 36684 011 JT NUÑEZ Ophthalmological New Patient Start Intermediate Level Care Ophthalmological New Patient Start Intermediate Level Care 57194 011 JT NUÑEZ Collection Of Capillary Blood Specimen Collection Of Capillary Blood Specimen 95622 SHILPI SMITH Skin Test Anergy Tuberculin Intradermal Skin Test Anergy Tuberculin Intradermal 48906 SHILPI SMITH Immunology Studies Immunology Studies 92658 21/06 SHILPI SMITH Venipuncture Venipuncture 20617 SHILPI SMITH Tdap Vaccine Seven Years Of Age And Above Tdap Vaccine Seven Years Of Age And Above 20261 011 MYRA MUSA SHILPI Paul [facility] Pneumococcal Polysaccharide Vaccine Adult Dos For Intramusc Pneumococcal Polysaccharide Vaccine Adult Dos For Intramusc 15661 011 LUIS, SHILPI Miller [facility] Meningococcal Polysaccharide Vaccine (Active) Meningococcal Polysaccharide Vaccine (Active) 64517 011 SHILPI SMITH [facility] Hepatitis A And Hepatitis B (Intramuscular Use) Adult Dosage Hepatitis A And Hepatitis B (Intramuscular Use) Adult Dosage 76690 011 MYRA MUSA SHILPI Miller [facility] Social History Combined list of available smoking, tobacco, and other social history from Department of Defense and [facility] Affairs facilities. 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 [facility] Plan of Care List of future care activities from Department of Veterans Affairs facilities. Additional future care activities may be listed in the Assessment and Plan section. Date/Time Care Activity Care Activity Detail Facili ty 09/18/2024 AMBULATORY - PSYCHIATRY AMBULATORY - PSYC HIATRY [facility]
--- OUTSIDE RECORDS SUMMARY | 2024-08-29 15:15 | XMS_ITS | Referral Summary ---
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/[place]O [place]: [place] [address] [facility]ICE [facility] H[facility]/PPO Address: [address] [facility]ARE Care Teams Towel Cabinet Repairer Relationship Specialty Start Date End Date Kwasi Manriquez MD [address] [place] [address] PCP - General Family Medicine 11/17/21 Luc Sorensen MD [address] [place] [address] Consulting Physician Urology 11/18/21
--- OUTSIDE RECORDS SUMMARY | 2024-08-29 15:15 | XMS_ITS | Clinical Summary ---
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 on file Not [...] complete this topic Varicella Vaccines Discontinued Insurance [facility] CHOICE PLUS [facility] CHOICE PLUS Member Subscriber Plan / Payer (Ef fective 2021-Present) Name:Dann Cazares Relation to Subscriber:Self Name:Dann Cazares Payer ID:[id number] ([facility]) Type:[facility] HMO/PPO Address: [address] COMMUNITY CARE Care Teams Clinical Research Manager Relationship Specialty Start Date End Date Kwasi Manriquez MD [facility] [place] [address] PCP - General Family Medicine 11/17/21 Luc Sorensen MD [address] [place] [address] Consulting Physician Urology 11/18/21
--- OUTSIDE RECORDS SUMMARY | 2024-08-29 15:15 | XMS_ITS | Clinical Summary ---
Author Organization [facility] Address [address] [place] [address] Care Team Providers Care Dispensing Optician Apprentice Name Role Phone Wilma Weiss Primary Care Provider [phone] Source Comments [facility],non-owned Affiliates and Associated Physician Practices is amultiple site organization consisting of ambulatory clinics and hospital sitesin [place], [place], [place] and [place]. This disclosure is being madepursuant to the Care Everywhere program and may not contain all information available regarding this patient. Last updated 18.[facility] [employer] Allergies No known active allergies Medications * [...] Comments Blood Pressure 130/82 03/15/2023 9:24 AM INSTRUCTIONAL SUPERVISOR Pulse 61 03/15/2023 9:24 AM INSTRUCTIONAL SUPERVISOR Temperature 36.8 C (98.2 F) 03/15/2023 9:24 AM INSTRUCTIONAL SUPERVISOR Respiratory Rate - - Oxygen Saturation 98% 03/15/2023 9:24 AM INSTRUCTIONAL SUPERVISOR Inhaled Oxygen Concentration - - Weight 90.7 kg (200 lb) 03/15/2023 9:24 AM INSTRUCTIONAL SUPERVISOR Height 180.3 cm (5' 11 ) 03/15/2023 9:24 AM INSTRUCTIONAL SUPERVISOR Body Mass Index 27.89 03/15/2023 9:24 AM INSTRUCTIONAL SUPERVISOR Plan of Treatment Health Maintenance Due Date [...] to complete this topic Insurance Care Teams Dispensing Optician Apprentice Relationship Specialty Start Date End Date Wilma Weiss [address] [place], [place] [address] PCP - General Pediatrics 02/22/23
--- OUTSIDE RECORDS SUMMARY | 2024-08-29 15:15 | XMS_ITS | Clinical Summary ---
Author Organization [facility] Address [address] [place] [address] Care Team Providers Care Cigarette Machine Filler Name Role Phone Unavailable Primary Care Provider [...]
[2024-08-29 15:31] VITALS: BP 129/99; PULSE 54; RESP 13; TEMP 36.6; O2SAT 100
[2024-08-29 16:02] VITALS: BP 119/88; PULSE 55; RESP 13; O2SAT 98
[2024-08-29 16:52] VITALS: BP 120/86; PULSE 59; RESP 12; TEMP 36.5; O2SAT 98
== END 2024-08-29 16:56 | disposition home or self-care (01) ==
PROVIDERS: Physician Assistant; Emergency Provider Emergency Medicine; PCP Nurse Practitioner
DX: R00.2 Palpitations (principal); F41.9 Anxiety disorder, unspecified; K21.9 Gastro-esophageal reflux disease without esophagitis
CPT/HCPCS: 36415; 70450; 80053; 85025; 93005; 99284

== ENCOUNTER 2025-04-27 09:55 | Emergency (ER) | payer OTHER, SELFPAY ==
--- NOTE | ~2025-04-27 | CT_ITS ---
CTA CHEST CLINICAL HISTORY: left chest pain . COMPARISON: Chest x-ray today TECHNIQUE: Helical CTA performed from thoracic inlet to upper abdomen IV contrast information not listed in PACS Coronal, sagittal reformats. Multiplanar MIPS CT images acquired with automatic exposure control for dose reduction DLP: 475 mGy-cm FINDINGS: Pulmonary arteries: No PE. Thoracic Aorta: No dissection or aneurysm. Heart/pericardium: Unremarkable. RV/LV ratio: Normal. Lungs/Pleura: Clear. Tracheobronchial tree: Patent. Nodes: No enlarged nodes. Bones: No acute bony abnormality. Soft tissues: Unremarkable. Visualized upper abdomen: Small sliding hiatal hernia. Colonic diverticula. Right adrenal adenoma IMPRESSION: 1. No PE or other acute cardiopulmonary findings. Reviewed, dictated and finalized at location R. CAL OFFICE WORKER
--- NOTE | ~2025-04-27 | XR_ITS ---
Examination: XR chest 2V Clinical History: cp Comparison: None Technique: PA and Lateral Findings: Cardiomediastinal silhouette normal size and configuration. Lungs clear. No acute bony abnormality. IMPRESSION: 1. No acute cardiopulmonary findings. Reviewed, dictated and finalized at location R. RNAL SALES ENGINEER
--- OUTSIDE RECORDS SUMMARY | 2025-04-27 09:58 | XMS_ITS | Patient Health Record ---
Author Organization [employer] [facility] Address [address] [place] [address] [place] [address] Care Team Providers Care Stucco Worker Name Role Phone Lamonte Weiss MD Primary Care Provider Unavailcheo Estrada MD, Alverto Unavailable Unavailable Darwin Watkins Unavailable [phone] Alyssa Whitt Unavailable [phone] Claudia Tavarez Unavailable [phone] Allergies No Known Allergies Reason For Referral No Information Medications Medication SIG (Take, Route, Fr equency, Duration) Notes Start Date End Date Status hydroCHLOROthiazide Active Pantoprazole Sodium Active Social History Tobacco Use: Social History Observation Description Date Details (start date - stop date) Former Smoker NA - NA Tobacco Use/Smoking Question Answer Notes Are you a former smoker How long has it been since you last smoked? 5-10 years Problems Problem Type SNOMED Code ICD Code Onset Dates Problem Status W/U Status Risk Notes Problem Gastroesophageal reflux disease (918829482) GERD (gastroes ophageal reflux disease) (K21.9) Active confirmed Daily for acid reflux. He will follow up with her office if he's her to have breakthrough symptoms on a current regiment. At that time may increase frequency of PPI. Encounters Encounter Location Date Provider Diagnosis [facility], [address] [place] [address] 08/10/2024 [facility], [address] [place] [address] 10/31/2024 Alyssa Whitt [facility], [facility] [address] [place] [address] 01/24/2025 Darwin Watkins [facility], [facility] [address] [place] [address] 02/19/2025 Claudia Tavarez [facility], [facility] [address] [address] 03/12/2025 Alyssa Whitt Plan Of Treatment Pending Test Test Name Order Date Colonoscopy 09/24/2022 Insurance Providers Payer Name Payer Address Payer Phone Subscriber Number Group Number Insured Name Patient Relationship to Insured Coverage Start Date Coverage End Date [facility] Choice/ choice Plus E2 [address] [address] [place] [address] [id number] Dann Cazares Self - patient is the insured Medical (General) History Medical History History ICD Code GERD Hypertension Surgical History Surgery Date(Month/Year) Colonoscopy 10/2022 Knee Sinus
--- OUTSIDE RECORDS SUMMARY | 2025-04-27 09:58 | XMS_ITS | Clinical Summary ---
Author Organization [facility] Address [address] [place] [address] Care Team Providers Care Pairer Odds Name Role Phone Luc Sorensen MD Unavailable Joan Edmonds NP Primary Care Provider + [phone] Allergies No known active allergies Medications multivitamin [...] a day 90 tablet 1 07/29/2022 Active losartan (COZAAR) 100 mg tablet Take 1 tablet (100 mg total) by mouth daily 12/24/2022 Active cephalexin (KEFLEX) 500 mg capsule TAKE 1 CAPSULE BY MOUTH TWICE DAILY FOR 7 DAYS 04/02/2025 Active clonazePAM (KlonoPIN) 0.5 mg tablet mg, tablet(s), daily, 0 06/12/2024 Active HYDROcodone-acet aminophen (NORCO) 5-325 mg per tablet Take 1 tablet by mouth 04/02/2025 Active SUMAtriptan (IMITREX) 100 mg tablet TAKE 1 TABLET BY MOUTH DAILY NEEDED FOR MIGRAINE. MAY REPEAT 1 TABLET IN 2 HOURS NEEDED. NO MORE THAN 2 TABLET DAILY 01/11/2025 Active Active Problems Problem Noted Date Diagnosed Date Gastroesophageal reflux disease without esophagi tis 03/25/2022 Assessment & Plan (03/29/2022 1:59 PM [employer]): Will switch to Protonix from omeprazole GI [...] (08/23/2018): Added automatically from request for surgery [id number] Encounters Date Type Department Care Team Description 04/03/2025 12:33 PM [employer] Anesthesia Event [facility] Operating Room [address] [place] [address] Robert Suarez MD Qi, Shelton Solorzano MD 04/03/2025 12:30 PM [employer] - 04/03/2025 1:55 PM [employer] Surgery [facility] Operating Room [address] [place] [address] Faisal Grant MD NASAL VALVE REPAIR 04/03/2025 10:12 AM [employer] - 04/03/2025 3:35 PM [employer] Hospital Encounter [facility] Operating Room [address] [place] [address] Faisal Grant MD Discharge Disposition: Discharge to home or self care from Last 3 Months Immunizations Immunization Administration Dates Next Due Influenza, Quadrivalent, Spl it, Preservative Free, Intramuscular 03/25/2022 Influenza, Unspecified 05/03/2021(Deferr ed: Patient Refused),05/03/2020(Deferred: Patient Refused) Pfizer SARS-CoV-2 Monovalent Vaccination (12+ Yrs) PURPLE 06/14/2020,05/24/2020 Tdap 03/25/2022 Surgical History Surgery Date Site/Laterality Comments URETHRA SURGERY 05/03/2016 - 05/02/2017 NOSE SURGERY x2 ESOPHAGOGASTRODUODENOSCOPY 04/21/2022 KNEE SURGERY RHINOPLASTY 04/03/2025 Nose/N/A Procedure: NASAL VALVE REPAIR; Surgeon: Faisal Grant MD; Location: [facility] OPERATING ROOM; Service: Otolaryngology; Laterality: N/A; Medical devices from this surgery are in the Medical Devices section. NASAL SEPTUM SURGERY 04/03/2025 Nose/Bilateral Procedure: SEPTOPLASTY AND BILATERAL INFERIOR TURBINATE REDUCTION; Surgeon: Faisal Grant MD; Location: [facility] OPERATING ROOM; Service: Otolaryngology; Laterality: Bilateral; Medical devices from this surgery are in the Medical Devices section. Medical History Medical History Date Comments Hypospadias in male GERD (gastroesophageal reflux disease) Hypertension Irritable bowel syndrome Depression Anxiety Family History Medical History Relation Name Comments [...] Never Smokeless Tobacco: Former Chew, Snuff Quit: 2015 Tobacco Cessation:Counseling Given: Not Answered Alcohol Use Standard Drinks/Week Comments Never 0 (1 standard drink = 0.6 oz pur e alcohol) PHQ-2 Answer Date Recorded PHQ-2 Total Score (If total score is 3 or more points, staff should administer the PHQ-9) 0 03/25/2022 AUDIT-C Answer Date Recorded Q1: How often do you have a drink containing alcohol? Never 04/03/2025 Q2: How many drinks containi ng alcohol do you have on a typical day when you are drinking? Patient does not drink Q3: How often do you have si x or more drinks on one occasion? Never 04/03/2025 Personal Safety Answer Date Recorded Have you ever been in or are you currently in a harmful physical or emotional relationship or is someone making you feel afraid or unsafe? 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 Not on file Not on file Not on file Last Filed Vital Signs Vital Sign Reading Time Taken Comments Blood Pressure 161/107 04/03/2025 3:15 PM [employer] Pulse 64 04/03/2025 3:15 PM [employer] Temperature 36.4 C (97.5 F) 04/03/2025 3:15 PM [employer] Respiratory Rate 11 04/03/2025 3:15 PM [employer] Oxygen Saturation 99% 04/03/2025 3:15 PM [employer] Inhaled Oxygen Concentration - - Weight 93.7 kg (206 lb 8 oz) 04/03/2025 11:10 AM [employer] Height 177.8 cm (5' 10) 04/03/2025 11:10 AM [employer] Body Mass Index 29.63 04/03/2025 11:10 AM [employer] Plan of Treatment Health Maintenance Due Date Last Done Comments Hepatitis C Screening 1990 Hepatitis B Screening 01/31/2008 HPV Vaccines (1 - 3-dose SCDM series) 2017 Regular Well Visit/Exam 18-64 11/18/2022 11/18/2021 Depression Screening 03/25/2023 03/25/2022, 11/18/2021 Covid-19 Vaccine ( season) 2025 06/14/2020, 05/24/2020 Influenza Vaccine (#1) 2025 03/25/2022 DTaP/Tdap/Td Vaccine (2 - Td or Tdap) 03/25/2032 03/25/2022 Pneumococcal vaccine <65 Aged Out No longer eligible based on patient's age to complete this topic Varicella Vaccines Discontinued Medical Devices Implanted Type Area Senior Stock Plan Administrator Device Identifier Shelf Expiration Date Model / Serial / Lot [employer] Graft Tissue Costal Cartilage 6.1cm Freeze Dried [id number] - [id number] Implanted:Qty: 1 on 04/03/2025 by Faisal Grant MD at [facility] Nose [employer] 01/31/2028 [id number] / / [id number] Procedures Procedure Name Priority Date/Time Associated Diagnosis Comments DC AN PROCEDURE PLACEHOLDER Routine 04/03/2025 12:51 PM [employer] DC AN ELECTIVE ENDOTRACHEAL AIRWAY Routine 04/03/2025 12:51 PM [employer] DC SEPTOPLASTY/SUBMUCOU S RESECJ W/WO CARTILAGE GRF 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 Case Notes NO SPECIAL NEEDS / NO REP NEEDED FOR THIS CASE from Last 3 Months Results * DC AN ELECTIVE ENDOTRACHEAL AIRWAY, DC AN PROCEDURE PLACEHOLDER (04/03/2025 12:51 PM [employer]) Narrative Kathryn Patel CRNA - 04/03/2025 12:51 PM [employer] Kathryn Patel CRNA 04/03/2025 12:51 PM Airway Patient location: OR Urgency: elective Indications for airway management: anesthesia Difficult airway: no Staff: Placed by: SENIOR IT ASSISTANT: Kathryn Patel CRNA Airway prep: Preoxygenated: yes Patient position: sniffing Mask difficulty assessment: 1 - vent by mask Spontaneous ventilation during airway: absent Sedation level during airway: GA Final airway details: Final airway type: endotracheal airway Tube type: ETT ETT size: 7.5 mm Cuffed: yes Technique used for successful ETT placement: video laryngoscopy Devices/Methods used in placement: stylet Insertion site: oral Video blade type: Gaitan Blade size: 4 Cormack-Lehane (video): grade I - full view of glottis Cuff volume: 4 mL Cuff inflated with: air ETT to lips: 22 cm Placement verified by: auscultation and CO2 detection Airway secured with: silk tape Number of attempts: 1 Robert Suarez MD ANESTHESIA ORDERABLE S Final Result from Last 3 Months Insurance [facility] Member Subscriber Plan / Payer (Ef fective 2017-Present) Name:Dann Cazares Relation to Subscriber:Self Name:Dann Cazares Payer ID:[id number] Group ID:Not on file Type:OTHER GOVERNMENT Address: [address] [facility] Address: [place] [address] [facility] Address: [address] [facility] Care Teams Pairer Odds Relationship Specialty Start Date End Date Joan Edmonds NP [address] [place] [address] PCP - General Nurse Practitioner 03/21/25 Luc Sorensen MD [address] [place] [address] Consulting Physician Urology 11/18/21
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
--- OUTSIDE RECORDS SUMMARY | 2025-04-27 09:58 | XMS_ITS | Clinical Summary ---
Author Organization [facility] Address [address] [place] [address] Care Team Providers Care Scalping Machine Operator Name Role Phone Unavailable Primary Care Provider Unavailabl e Social History Tobacco Use Types Packs/Day Years Used Date Smoking Tobacco: Never Assessed Sex and Gender Information Value Date Recorded Sex Assigned at Not on file Legal Sex Male 9:21 AM CDT Gender Identity Not on file Sexual Orientation Not on file Plan of Treatment Health Maintenance Due Date Last Done Comments INFLUENZA VACCINE (#1) 2024 , 05/31/2019, 02/18/2018, Additional history exists COVID-19 Vaccine (2024-2 6 season) 2025 06/14/2020, 05/24/2020 DTAP/TDAP/TD VACCINES (3 - T d or Tdap) 03/25/2032 03/25/2022, 09/17/2010 HEPATITIS B VACCINES Completed 06/17/2011, 05/26/2011, 10/17/2010, Additional history exists HPV VACCINES (No Doses Required) Completed Insurance [employer]
--- OUTSIDE RECORDS SUMMARY | 2025-04-27 09:58 | XMS_ITS | Clinical Summary ---
Author Organization [facility] Address [address] [place] [address] Care Team Providers Care Mill House Supervisor Name Role Phone Wilma Weiss Primary Care Provider [phone] Source Comments [facility],non-owned Affiliates and Associated Physician Practices is amultiple site organization consisting of ambulatory clinics and hospital sitesin [place], [place], [place] and [place]. This disclosure is being madepursuant to the Care Everywhere program and may not contain all information available regarding this patient. Last updated 18.[facility] [employer] Allergies No known active allergies Medications * [...] Comments Blood Pressure 130/82 03/15/2023 9:24 AM GENERAL MANAGER LAND DEPARTMENT Pulse 61 03/15/2023 9:24 AM GENERAL MANAGER LAND DEPARTMENT Temperature 36.8 C (98.2 F) 03/15/2023 9:24 AM GENERAL MANAGER LAND DEPARTMENT Respiratory Rate - - Oxygen Saturation 98% 03/15/2023 9:24 AM GENERAL MANAGER LAND DEPARTMENT Inhaled Oxygen Concentration - - Weight 90.7 kg (200 lb) 03/15/2023 9:24 AM GENERAL MANAGER LAND DEPARTMENT Height 180.3 cm (5' 11) 03/15/2023 9:24 AM GENERAL MANAGER LAND DEPARTMENT Body Mass Index 27.89 03/15/2023 9:24 AM GENERAL MANAGER LAND DEPARTMENT Plan of Treatment Health Maintenance Due Date Last Done Comments HIV SCREENING 2005 HEPATITIS C SCREENING 01/26/2008 DTAP/TDAP/TD VACCINES (1 - Tdap) 2009 HEPATITIS B VACCINE (1 of 3 - 19+ 3-dose series) 2009 HPV VACCINE (1 - 3-dose SCDM series) 2017 DEPRESSION SCREENING 05/03/2024 COVID-19 VACCINE (3 - season) 2025 06/14/2020, 05/24/2020 INFLUENZA VACCINE (#1) 2025 , 02/10/2020, 05/31/2019, Additional history exists ZOSTER VACCINE [...] to complete this topic Insurance Care Teams Mill House Supervisor Relationship Specialty Start Date End Date Wilma Weiss [id number] [place], [place] [id number] PCP - General Pediatrics 02/22/23
--- NOTE | 2025-04-27 10:11 | ECG_ITS ---
Test Date: 2025-04-27 10:31:06 Measurements Intervals [place] Rate: 69 P: 39 MN: 172 QRS: 24 QRSD: 91 T: 20 QT: 404 QTc: 433 Interpretive Statements SINUS RHYTHM MINIMAL Q WAVES- INFERIOR LEADS BASELINE WANDER- V3 BORDERLINE ECG Compared to ECG 08/29/2024 14:25:53 No significant changes Electronically Signed On 04-27-2025 19:32:52 EMERGENCY COMMUNICATIONS OFFICER by Kulwant Mclain D.O.
[2025-04-27 10:53] VITALS: BP 140/86; PULSE 88; RESP 16; TEMP 36.8; O2SAT 98
--- OUTSIDE RECORDS SUMMARY | 2025-04-27 11:29 | XMS_ITS | Clinical Summary ---
Author Organization [facility] Address [address] [place] [address] Care Team Providers Care Botany Teacher Name Role Phone Luc Sorensen MD Unavailable Joan Edmonds NP Primary Care Provider [phone] Allergies No known active allergies Medications multivitamin [...] 03/25/2022 Assessment & Plan (03/29/2022 1:59 PM JET MAN): Will switch to Protonix from omeprazole GI [...] (08/23/2018): Added automatically from request for surgery [id number] Encounters Date Type Department Care Team Description 04/03/2025 12:33 PM JET MAN Anesthesia Event [facility] Operating [address] [place] [address] Robert Suarez MD Qi, Shelton Solorzano MD 04/03/2025 12:30 PM JET MAN - 04/03/2025 1:55 PM JET MAN Surgery [facility] Operating [address] [place] [address] Faisal Grant MD NASAL VALVE REPAIR 04/03/2025 10:12 AM JET MAN - 04/03/2025 3:35 PM JET MAN Hospital Encounter [facility] Operating [address] [place] [address] Faisal Grant MD Discharge Disposition: Discharge to [...] VALVE REPAIR; Surgeon: Faisal Grant MD; Location: [facility] OPERATING ROOM; Service: Otolaryngology; Laterality: N/A; Medical devices from this surgery are in the Medical Devices section. 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 Not on file Not on file Not on file Last Filed Vital Signs Vital Sign Reading Time Taken Comments Blood Pressure 161/107 04/03/2025 3:15 PM JET MAN Pulse 64 04/03/2025 3:15 PM JET MAN Temperature 36.4 C (97.5 F) 04/03/2025 3:15 PM JET MAN Respiratory Rate 11 04/03/2025 3:15 PM JET MAN Oxygen Saturation 99% 04/03/2025 3:15 PM JET MAN Inhaled Oxygen Concentration - - Weight 93.7 kg (206 lb 8 oz) 04/03/2025 11:10 AM JET MAN Height 177.8 cm (5' 10) 04/03/2025 11:10 AM JET MAN Body Mass Index 29.63 04/03/2025 11:10 AM JET MAN Plan of Treatment Health Maintenance Due Date [...] Vaccines Discontinued Medical Devices Implanted Type Area Marine Erector Device Identifier Shelf Expiration Date Model / Serial / Lot [employer] Graft Tissue Costal Cartilage 6.1cm Freeze Dried [id number] - [id number] Implanted:Qty: 1 on 04/03/2025 by Faisal Grant MD at [facility] Nose [employer] 01/31/2028 [id number] / / [id number] Procedures Procedure Name Priority Date/Time Associated Diagnosis Comments IL AN PROCEDURE PLACEHOLDER Routine 04/03/2025 12:51 PM JET MAN IL AN ELECTIVE ENDOTRACHEAL AIRWAY Routine 04/03/2025 12:51 PM JET MAN IL SEPTOPLASTY/SUBMUCOU S RESECJ W/WO CARTILAGE GRF 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 Case Notes NO SPECIAL NEEDS / NO REP NEEDED FOR THIS CASE from Last 3 Months Results * IL AN ELECTIVE ENDOTRACHEAL AIRWAY, IL AN PROCEDURE PLACEHOLDER (04/03/2025 12:51 PM JET MAN) Narrative Kathryn Patel CRNA - 04/03/2025 12:51 PM JET MAN Kathryn Patel CRNA 04/03/2025 12:51 PM Airway Patient location: OR Urgency: elective Indications for airway management: anesthesia Difficult airway: no Staff: Placed by: RELAY ADJUSTER: Kathryn Patel CRNA Airway prep: Preoxygenated: yes [...] Final Result from Last 3 Months Insurance [facility] Member Subscriber Plan / Payer (Ef fective 2017-Present) Name:Dann Cazares Relation to Subscriber:Self Name:Dann Cazares Payer ID:[id number] Group ID:Not on file Type:OTHER GOVERNMENT Address: [address] CHOICE PLUS [facility] CHOICE PLUS Member Subscriber Plan / Payer ( fective 2021-Present) Name:Dann Cazares Relation to Subscriber:Self Name:Dann Cazares Payer ID:[id number] (NAIC) Type:[facility] HMO/PPO Address: [address] [facility] Care Teams Botany Teacher Relationship Specialty Start Date End Date Joan Edmonds NP [address] [place] [address] PCP - General Nurse Practitioner 03/21/25 Luc Sorensen MD [address] [place] [address] Consulting Physician Urology 11/18/21
--- OUTSIDE RECORDS SUMMARY | 2025-04-27 11:29 | XMS_ITS | Clinical Summary ---
Author Organization [facility] Address [address] [place] [address] Care Team Providers Care Shrimp Cleaner Name Role Phone Unavailable Primary Care Provider [...]
--- OUTSIDE RECORDS SUMMARY | 2025-04-27 11:29 | XMS_ITS | Clinical Summary ---
Author Organization [facility] Address [address] [place] [address] Care Team Providers Care Employment Attorney Name Role Phone Wilma Weiss Primary Care Provider [phone] Source Comments [facility],non-owned Affiliates and Associated Physician Practices is amultiple site organization consisting of ambulatory clinics and hospital sitesin [place], [place], [place] and [place]. This disclosure is being madepursuant to the Care Everywhere program and may not contain all information available regarding this patient. Last updated 18.[facility] [employer] Allergies No known active allergies Medications * [...] Comments Blood Pressure 130/82 03/15/2023 9:24 AM LARD MAKER Pulse 61 03/15/2023 9:24 AM LARD MAKER Temperature 36.8 C (98.2 F) 03/15/2023 9:24 AM LARD MAKER Respiratory Rate - - Oxygen Saturation 98% 03/15/2023 9:24 AM LARD MAKER Inhaled Oxygen Concentration - - Weight 90.7 kg (200 lb) 03/15/2023 9:24 AM LARD MAKER Height 180.3 cm (5' 11) 03/15/2023 9:24 AM LARD MAKER Body Mass Index 27.89 03/15/2023 9:24 AM LARD MAKER Plan of Treatment Health Maintenance Due Date [...] to complete this topic Insurance Care Teams Employment Attorney Relationship Specialty Start Date End Date Wilma Weiss [address] [place], [place] [phone] PCP - General Pediatrics 02/22/23
[2025-04-27 11:31] VITALS: PULSE 71
[2025-04-27] MEDS: ASPIRIN 81 MG CHEWABLE TABLET 324 MG PO (11:32)
[2025-04-27 11:41] LABS: Hematocrit 44.8 % (42.0-52.0); Hemoglobin 14.9 g/dL (14.0-18.0); Immature Granulocyte Percent A 0.3 % (0-0.5); Lymphocytes Absolute Auto 1.53 K/mm3 (0.9-3.2); Mean Corpuscular HGB Conc 33.3 g/dl (32-36); Mean Corpuscular Hemoglobin 29.2 pg (26-34); Mean Corpuscular Volume 87.8 fl (80-100); Nucleated Red Blood Cells Absolute Auto 0.000 K/mm3 (0.0-0.012); Nucleated Red Blood Cells Perc 0.0 % (0.0-0.2); Platelet Count Result 221 k/mm3 (150-375); Red Blood Count 5.10 M/mm3 (4.6-6.20); White Blood Count 6.1 K/mm3 (4.5-10.0)
[2025-04-27 11:52] LABS: Alanine Aminotransferase 28 U/L (6-50); Albumin Level 4.6 g/dL (3.5-5.1); Alkaline Phosphatase 86 U/L (38-126); Anion Gap 6 mmol/L (4-12); Aspartate Amino Transferase 31 U/L (17-59); Bilirubin,Total 1.0 mg/dL (0.2-1.3); Blood Urea Nitrogen 17 mg/dL (9-20); Calcium 9.6 mg/dL (8.4-10.2); Carbon Dioxide 28 mmol/L (22-30); Chloride 104 mmol/L (98-107); Estimated CRCL calculation 92 ml/min; Estimated Glomerular Filt Rate > 60; Glucose 110 mg/dL (65-110); Lipase 68 U/L (23-300); Potassium 4.0 mmol/L (3.4-5.0); Sodium 138 mmol/L (137-145); Total Protein 7.5 g/dL (6.3-8.2)
[2025-04-27 11:54] LABS: INR 1.0; Prothrombin Time 13.5 Seconds (11.1-14.7)
[2025-04-27 11:55] LABS: Partial Thromboplastin Time 27.3 Seconds (22.3-36.8)
[2025-04-27 12:03] LABS: Troponin I < 0.012 ng/mL (0.000-0.034)
[2025-04-27 12:40] VITALS: BP 156/98; PULSE 65; RESP 15; O2SAT 98
[2025-04-27] MEDS: KETOROLAC 15 MG/ML VIAL (*BKC) IV PUSH (12:43)
--- NOTE | 2025-04-27 13:01 | ED.CHESTPAIN ---
HPI - Chest Pain General Chief Complaint: Chest Pain Stated Complaint: CHEST PAIN Time Seen by Provider: 04/27/25 11:21 History of Present Illness HPI narrative: Patient is a 35-year-old male who presents ER with left-sided chest pain. Upper aspect near the sternal border. It is worse when he stretches his shoulders backwards. No chest pain with exertion or deep breath. No hemoptysis. No fevers or chills or sweats. He has had some outpatient evaluation by his PCP and has tried anti-inflammatories. Symptoms returned so it was recommended he come to the ER for further evaluation. Related Data Home Medications ?Medication ?Instructions ?Recorded ?Confirmed ?Last Taken ?Type losartan 50 mg tablet 50 mg PO DAILY 08/29/24 08/29/24 08/29/24 History nadolol 20 mg tablet 20 mg PO DAILY 08/29/24 08/29/24 08/29/24 History Allergies Allergy/AdvReac Type Severity Reaction Status Date / Time No Known Allergies Allergy Verified 08/29/24 13:00 Review of Systems Review of Systems: All systems reviewed & are unremarkable except as noted in HPI and below Constitutional: Constitutional: Reports no additional constitutional complaints Cardiovascular: Cardiovascular: Reports no additional cardiovascular complaints Respiratory: Respiratory: Reports no additional respiratory complaints Gastrointestinal: Gastrointestinal: Reports no additional gastrointestinal complaints Musculoskeletal: Musculoskeletal: Reports no additional musculoskeletal complaints PMFSH Past Medical History Medical History GERD (gastroesophageal reflux disease) Surgical History Surgical History No pertinent past surgical history Social History Social History Smoking status: Never smoker Exam Narrative: GENERAL: Well-appearing, well-nourished, and in no acute distress. HEAD: Normocephalic, atraumatic. ENT: Mucous membranes moist. CHEST: Clear to auscultation. No respiratory distress. No reproducible chest wall tenderness with palpation. HEART: Regular rate and rhythm. Normal peripheral pulses. ABDOMEN: Soft, nontender, nondistended. EXTREMITIES: Normal range of motion. No edema. SKIN: Warm, dry, no rash. NEURO: Alert and oriented x3. PSYCH: Normal mood and affect. Course Course Emergency Course: Patient resting comfortably. Labs normal. No PE or pneumonia. Appropriate for discharge home. Follow-up with PCP. Vital Signs Vital signs: Vital Signs Temperature 98.2 F 04/27/25 10:53 Pulse Rate 88 04/27/25 10:53 Respiratory Rate 16 04/27/25 10:53 Blood Pressure 140/86 04/27/25 10:53 Pulse Oximetry 98 04/27/25 10:53 Temperature 98.2 F 04/27/25 10:53 Pulse Rate 65 04/27/25 12:40 Respiratory Rate 15 04/27/25 12:40 Blood Pressure 156/98 H 04/27/25 12:40 Pulse Oximetry 98 04/27/25 12:40 MDM Differential Diagnosis Differential Diagnosis: Musculoskeletal chest pain, pleurisy, ACS, pneumothorax, pneumonia, PE Lab Data MDM Lab Attestation statement: I personally reviewed the patient's lab results. 04/27/25 11:34 04/27/25 11:34 Labs: Lab Results 04/27/25 Range/Units 11:34 WBC 6.1 (4.5-10.0) K/mm3 RBC 5.10 (4.6-6.20) M/mm3 Hgb 14.9 (14.0-18.0) g/dL Hct 44.8 (42.0-52.0) % MCV 87.8 (80-100) fl MCH 29.2 (26-34) pg MCHC 33.3 (32-36) g/dl RDW 11.7 (11.5-14.5) % Plt Count 221 (150-375) k/mm3 MPV 9.6 (7.4-10.4) fl Immature Gran % (Auto) 0.3 (0-0.5) % Neut % (Auto) 65.3 (45.5-73.1) % Lymph % (Auto) 25.0 (18.3-44.2) % [place] % (Auto) 7.8 (2.6-8.5) % Eos % (Auto) 1.1 (0-4.4) % Baso % (Auto) 0.5 (0.2-1.2) % Lymph # (Auto) 1.53 (0.9-3.2) K/mm3 [place] # (Auto) 0.5 (0.1-0.6) K/mm3 Eos # (Auto) 0.1 (0-0.3) K/mm3 Baso # (Auto) 0.0 (0.0-0.1) K/mm3 Abs Immat Gran (auto) 0.02 (0.00-0.031) K/mm3 Absolute Neuts (auto) 4.0 (1.3-6.7) K/mm3 Absolute Nucleated RBC 0.000 (0.0-0.012) K/mm3 Nucleated RBC % 0.0 (0.0-0.2) % PT 13.5 (11.1-14.7) Seconds INR 1.0 APTT 27.3 (22.3-36.8) Seconds Sodium 138 (137-145) mmol/L Potassium 4.0 (3.4-5.0) mmol/L Chloride 104 (98-107) mmol/L Carbon Dioxide 28 (22-30) mmol/L Anion Gap 6 (4-12) mmol/L BUN 17 (9-20) mg/dL Creatinine 1.02 (0.7-1.3) mg/dL Estim Creat Clear Calc 92 ml/min Estimated GFR > 60 (59 - ) Glucose 110 (65-110) mg/dL Calcium 9.6 (8.4-10.2) mg/dL Total Bilirubin 1.0 (0.2-1.3) mg/dL AST 31 (17-59) U/L ALT 28 (6-50) U/L Alkaline Phosphatase 86 (38-126) U/L Troponin I < 0.012 (0.000-0.034) ng/mL Total Protein 7.5 (6.3-8.2) g/dL Albumin 4.6 (3.5-5.1) g/dL Lipase 68 (23-300) U/L Imaging Data Attestation: I personally reviewed and interpreted this imaging study as follows: Radiologist's impression: ITS Impressions Chest X-Ray 04/27/25 11:15 IMPRESSION: 1. No acute cardiopulmonary findings. Chest CTA 04/27/25 12:44 IMPRESSION: 1. No PE or other acute cardiopulmonary findings. ECG Data EKG #1: Attestation: I personally reviewed and interpreted this ECG as follows: ECG completion date: 04/27/25 ECG completion time: 10:31 normal rate (69), sinus rhythm, normal QRS, normal QT and NL axis Discharge Plan Discharge Clinical Impression: Anterior chest wall pain Patient Disposition: Home Condition: Stable Instructions: Chest Wall Pain (ED) Additional Instructions: Please return to the emergency department if you develop severe and persistent chest pain, difficulty breathing, dizziness, leg swelling or if you are coughing up blood as these can be signs of a medical emergency. Please call your doctor for a follow up appointment to determine the need for further testing. Patient Language: Welsh Prescriptions: New naproxen 375 mg tablet 375 mg PO BID Qty: 14 0RF No Action losartan 50 mg tablet 50 mg PO DAILY nadolol 20 mg tablet 20 mg PO DAILY Follow-up/Referrals: Kendal,Joan Child, ACADEMIC ADVISING DIRECTOR [Primary Care Provider, Unknown] - 1 Week Quality HEART score for chest pain patients History: slightly suspicious ECG: normal Age: < or = to 45 years Risk factors: no risk factors known Troponin: < or = to 1x normal limit Heart score: 0
[2025-04-27 13:38] VITALS: PULSE 75; RESP 12; O2SAT 99
== END 2025-04-27 13:40 | disposition home or self-care (01) ==
PROVIDERS: Emergency Provider Emergency Medicine; PCP Nurse Practitioner
DX: R07.89 Other chest pain (principal); K21.9 Gastro-esophageal reflux disease without esophagitis
CPT/HCPCS: 36415; 71046; 71275; 80053; 83690; 84484; 85025; 85610; 85730; 93005; 96374; 99284; A9270; J1885; Q9967